=== PATIENT | female | born 1960 | race Caucasian/White ===

== ENCOUNTER 2016-12-28 18:47 | Emergency (ER) | payer BC, MEDICARE ==
[2016-12-28 19:47] VITALS: RESP 16
[2016-12-28] MEDS ORDERED: SODIUM CHLORIDE 0.9% 500 ML IV STA (19:59)
[2016-12-28] MEDS ORDERED: ACETAMINOPHEN TAB 500 MG TAB PO STA (19:59)
--- NOTE | 2016-12-28 20:04 | ED ---
General Adult HPI - General Chief complaint: ENT Stated complaint: neck pain, sore throat Time Seen by Provider: 12/28/16 19:51 Source: patient, RN notes reviewed Mode of arrival: ambulatory Limitations: no limitations - History of Present Illness Initial comments: Patient is a pleasant 56-year-old female presenting to the emergency department complaining of neck pain. Symptoms present for 3 days. Patient has mild sore throat. Patient did have a fever of 99 this morning. No weakness. Patient has not taken Tylenol since yesterday. Neck discomfort increases with movement. Patient has a known history of osteo arthritis and questions if that is causing her neck discomfort. No headache. No weakness. No visual problems. No slurred speech. Patient was at [employer] who did a strep screen that was reported to her as negative. - Related Data Home Medications Medication Instructions Recorded Confirmed Lisinopril [Prinivil] 20 mg PO DAILY 04/05/15 12/28/16 Aspirin 325 mg PO DAILY 04/22/15 12/28/16 Biotin 5 mg PO DAILY 04/22/15 12/28/16 Calcium Carbonate [Calcium] 1,200 mg PO DAILY 12/28/16 12/28/16 Multivitamins, Thera [Multivitamin 1 tab PO DAILY 12/28/16 12/28/16 (formulary)] Vitamin D3(Unknown) 1 tab PO DAILY 12/28/16 12/28/16 Previous Rx's Medication Instructions Recorded Nitroglycerin Sl Tabs [Nitrostat] 0.4 mg SUBLINGUAL Q5M PRN #25 tab 04/08/15 Ciprofloxacin HCl [Cipro] 500 mg PO Q12HR #20 tablet 12/28/16 Allergies Allergy/AdvReac Type Severity Reaction Status Date / Time No Known Allergies Allergy Verified 12/28/16 19:55 Review of Systems ROS Statement: Those systems with pertinent positive or pertinent negative responses have been documented in the HPI. ROS Other: All systems not noted in ROS Statement are negative. Constitutional: Reports: fever Eyes: Denies: eye pain ENT: Reports: throat pain. 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 Recent stent placement History of Any Multi-Drug Resistant Organisms: None Reported Past Surgical History: Heart Catheterization, Heart Catheterization With Stent Additional Past Surgical History / Comment(s): Laparoscopy - PCOS, 08/09/09 colonoscopy with benign polypectomy.04-27-15 heart cath w/stent to lad. Past Anesthesia/Blood Transfusion Reactions: Motion Sickness Additional Past Anesthesia/Blood Transfusion Reaction / Comment(s): Pt states she has difficulty awakening from general anesthesia- slow to wake. She was in ICU post op because of this. Date of Last Stent Placement:: 04/27/15 Past Psychological History: No Psychological Hx Reported Smoking Status: Former smoker Past Alcohol Use History: None Reported Past Drug Use History: None Reported - Past Family History Father Family Medical History: Myocardial Infarction (AL) Additional Family Medical History / Comment(s): Father in his early 30's of a AL Sister(s) Family Medical History: Myocardial Infarction (AL) Additional Family Medical History / Comment(s): Sister at age 32yrs of a AL Mother Additional Family Medical History / Comment(s): Mother is alive and is 80yrs old -she is healthy. General Exam Limitations: no limitations General appearance: alert, in no apparent distress Head exam: Present: atraumatic Eye exam: Present: normal appearance, PERRL ENT exam: Present: other (Mild pharyngeal cobblestoning) Neck exam: Present: tenderness (Tenderness left upper lateral posterior neck, moderate. Minimal right lateral upper posterior neck. No C-spine tenderness.) , other (Patient states only mild discomfort with passive range of motion.) Respiratory exam: Present: normal lung sounds bilaterally Cardiovascular Exam: Present: regular rate, normal rhythm GI/Abdominal exam: Present: soft. Absent: tenderness Extremities exam: Present: normal inspection Neurological exam: Present: alert, CN II-XII intact. Absent: motor sensory deficit Expanded Cranial nerves: EOM's Intact: Normal Sensory exam: Upper Extremity Light Touch: Normal, Lower Extremity Light Touch: Normal Motor strength exam: RUE: 5, LUE: 5, RLE: 5, LLE: 5 Psychiatric exam: Present: normal affect, normal mood Skin exam: Present: normal color Course Vital Signs 12/28/16 12/28/16 18:58 19:46 Temperature 98.1 F Pulse Rate 108 H 104 H Respiratory 20 16 Rate Blood Pressure 193/102 188/88 O2 Sat by Pulse 98 96 Oximetry Medical Decision Making - Medical Decision Making Patient reexamined and is somewhat improved. Patient updated on results. Patient is felt to have low suspicion for meningitis however is informed this cannot be ruled out without lumbar puncture. Patient does not want a lumbar puncture done. Patient does not feel she has meningitis and would like to be discharged. Patient will be covered with antibiotics for possible urinary tract infection. Culture will be obtained. Patient is agreeable to follow-up with her doctor on Saturday. Patient is made aware of elevation of blood sugar and mild elevation of liver enzymes. - Lab Data Result diagrams: 12/28/16 20:19 12/28/16 20:19 Lab Results 12/28/16 12/28/16 12/28/16 Range/Units 20:19 20:19 20:19 WBC 10.2 (3.8-10.6) k/uL RBC 4.86 (3.80-5.40) m/uL Hgb 14.5 (11.4-16.0) gm/dL Hct 42.9 (34.0-46.0) % MCV 88.3 (80.0-100.0) fL MCH 29.9 (25.0-35.0) pg MCHC 33.8 (31.0-37.0) g/dL RDW 13.3 (11.5-15.5) % Plt Count 296 (150-450) k/uL Neutrophils % 64 % Lymphocytes % 20 % Monocytes % 8 % Eosinophils % 5 % Basophils % 1 % Neutrophils # 6.6 (1.3-7.7) k/uL Lymphocytes # 2.0 (1.0-4.8) k/uL Monocytes # 0.8 (0-1.0) k/uL Eosinophils # 0.5 (0-0.7) k/uL Basophils # 0.1 (0-0.2) k/uL Sodium 140 (137-145) mmol/L Potassium 4.4 (3.5-5.1) mmol/L Chloride 105 (98-107) mmol/L Carbon Dioxide 24 (22-30) mmol/L Anion Gap 11 mmol/L BUN 13 (7-17) mg/dL Creatinine 0.70 (0.52-1.04) mg/dL Est GFR (MDRD) Af Amer >60 (>60 ml/min/1.73 sqM) Est GFR (MDRD) Non-Af >60 (>60 ml/min/1.73 sqM) Glucose 141 H (74-99) mg/dL Plasma Lactic Acid Rufino 1.2 (0.7-2.0) mmol/L Calcium 9.5 (8.4-10.2) mg/dL Total Bilirubin 0.7 (0.2-1.3) mg/dL AST 37 H (14-36) U/L ALT 64 H (9-52) U/L Alkaline Phosphatase 70 (38-126) U/L Total Protein 7.8 (6.3-8.2) g/dL Albumin 4.1 (3.5-5.0) g/dL Urine Color Urine Appearance (Clear) Urine pH (5.0-8.0) Ur Specific [place] (1.001-1.035) Urine Protein (Negative) Urine Glucose (UA) (Negative) Urine Ketones (Negative) Urine Blood (Negative) Urine Nitrite (Negative) Urine Bilirubin (Negative) Urine Urobilinogen (<2.0) mg/dL Ur Leukocyte Esterase (Negative) Urine RBC (0-5) /hpf Urine WBC (0-5) /hpf Ur Squamous Epith Cells (0-4) /hpf Urine Bacteria (None) /hpf 12/28/16 Range/Units 20:34 WBC (3.8-10.6) k/uL RBC (3.80-5.40) m/uL Hgb (11.4-16.0) gm/dL Hct (34.0-46.0) % MCV (80.0-100.0) fL MCH (25.0-35.0) pg MCHC (31.0-37.0) g/dL RDW (11.5-15.5) % Plt Count (150-450) k/uL Neutrophils % % Lymphocytes % % Monocytes % % Eosinophils % % Basophils % % Neutrophils # (1.3-7.7) k/uL Lymphocytes # (1.0-4.8) k/uL Monocytes # (0-1.0) k/uL Eosinophils # (0-0.7) k/uL Basophils # (0-0.2) k/uL Sodium (137-145) mmol/L Potassium (3.5-5.1) mmol/L Chloride (98-107) mmol/L Carbon Dioxide (22-30) mmol/L Anion Gap mmol/L BUN (7-17) mg/dL Creatinine (0.52-1.04) mg/dL Est GFR (MDRD) Af Amer (>60 ml/min/1.73 sqM) Est GFR (MDRD) Non-Af (>60 ml/min/1.73 sqM) Glucose (74-99) mg/dL Plasma Lactic Acid Rufino (0.7-2.0) mmol/L Calcium (8.4-10.2) mg/dL Total Bilirubin (0.2-1.3) mg/dL AST (14-36) U/L ALT (9-52) U/L Alkaline Phosphatase (38-126) U/L Total Protein (6.3-8.2) g/dL Albumin (3.5-5.0) g/dL Urine Color Light Yellow Urine Appearance Clear (Clear) Urine pH 5.5 (5.0-8.0) Ur Specific [place] 1.010 (1.001-1.035) Urine Protein Negative (Negative) Urine Glucose (UA) Negative (Negative) Urine Ketones Negative (Negative) Urine Blood Negative (Negative) Urine Nitrite Negative (Negative) Urine Bilirubin Negative (Negative) Urine Urobilinogen <2.0 (<2.0) mg/dL Ur Leukocyte Esterase Moderate H (Negative) Urine RBC 1 (0-5) /hpf Urine WBC 7 H (0-5) /hpf Ur Squamous Epith Cells <1 (0-4) /hpf Urine Bacteria Rare H (None) /hpf - Radiology Data Radiology results: report reviewed (Computed tomography scan the brain shows no acute process. Computed tomography scan of the cervical spine does show some mild degenerative changes of the lower cervical spine. There is some disc herniation C5 6 and C6 7.), image reviewed (Chest x-ray shows no acute process.) Disposition Clinical Impression: Neck pain Disposition: HOME SELF-CARE Condition: Stable Instructions: Neck Pain (ED), Fever in Adults (ED) Additional Instructions: Please follow-up with your doctor on Saturday. Return for increased fevers, increased neck pain, confusion, weakness, increased illness, worsening symptoms or other concerns. Continue [id number] Tylenol or Motrin as needed. Prescriptions: Ciprofloxacin HCl [Cipro] 500 mg PO Q12HR #20 tablet Referrals: Delmy Vogt MD [Primary Care Provider] - 1-2 days Time of Disposition: 21:27
[2016-12-28 20:36] LABS: Basophils # (A) 0.1 k/uL (0-0.2); Basophils % (A) 1 %; CH 29.5; CHCM 33.6; Eosinophils # (A) 0.5 k/uL (0-0.7); Eosinophils % (A) 5 %; HCT 42.9 % (34.0-46.0); HDW 2.33; HGB 14.5 gm/dL (11.4-16.0); Luc # (Auto) 0.22; Luc % (Auto) 2; Lymphocytes % (A) 20 %; MCH 29.9 pg (25.0-35.0); MCHC 33.8 g/dL (31.0-37.0); MCV 88.3 fL (80.0-100.0); Mean Platelet Volume 7.6; Monocytes # (A) 0.8 k/uL (0-1.0); Monocytes % (A) 8 %; Neutrophils # (A) 6.6 k/uL (1.3-7.7); Neutrophils % (A) 64 %; RBC 4.86 m/uL (3.80-5.40); RDW 13.3 % (11.5-15.5); WBC 10.2 k/uL (3.8-10.6); WBC (Perox) 9.42
[2016-12-28 20:46] LABS: Appearance,Urine Clear (Clear); Bacteria,Urine Rare /hpf; Bilirubin,Urine Negative (Negative); Glucose,Urine (UA) Negative (Negative); Ketones,Urine Negative (Negative); Leukocyte Esterase,Urine Moderate (Negative); Nitrite,Urine Negative (Negative); PH, Urine 5.5 (5.0-8.0); Particle Count 1325; Protein,Urine Negative (Negative); RBC,Urine 1 /hpf (0-5); Squamous Epithelial Cell,Urine <1 /hpf (0-4); UA Billing (MACRO vs. MICRO) MICRO; Urobilinogen,Urine <2.0 mg/dL (<2.0); WBC,Urine 7 /hpf (0-5)
[2016-12-28 20:47] LABS: ALT 64 U/L (9-52); AST 37 U/L (14-36); Alkaline Phosphatase 70 U/L (38-126); Anion Gap 11 mmol/L; Blood Urea Nitrogen 13 mg/dL (7-17); Calcium 9.5 mg/dL (8.4-10.2); Carbon Dioxide 24 mmol/L (22-30); Chloride 105 mmol/L (98-107); Glucose 141 mg/dL (74-99); Non-African American GFR(MDRD) >60 (>60 ml/min/1.73 sqM); Potassium 4.4 mmol/L (3.5-5.1); Sodium 140 mmol/L (137-145); Total Bilirubin 0.7 mg/dL (0.2-1.3); Total Protein 7.8 g/dL (6.3-8.2)
--- NOTE | 2016-12-28 20:50 | XR ---
EXAMINATION TYPE: XR chest 2V DATE OF EXAM: 12/28/2016 COMPARISON: May 02, 2015 HISTORY: Neck pain and fever TECHNIQUE: Frontal and lateral views of the chest are obtained. FINDINGS: Heart and mediastinum are normal. Lungs are clear. There is no pleural effusion. Bony thor ax is intact. IMPRESSION: Normal chest. No change.
--- NOTE | 2016-12-28 21:07 | CT ---
EXAMINATION TYPE: CT brain michelle gentile DATE OF EXAM: 12/28/2016 COMPARISON: NONE HISTORY: Sore throat and neck pain x 3 days with fever today. CT DLP: 1770.20 mGycm Automated exposure control for dose reduction was used. TECHNIQUE: CT scan of the head and cervical spine are performed without contrast. FINDINGS: Ventricles and sulci appear normal for age. There is no mass effect nor midline shift. Th ere is no sign of intracranial hemorrhage. Bony calvarium is intact. Cervical vertebra have normal alignment. There is posterior spurring of the endplates at C5-6 C6-7 wi th mild disc space narrowing. Facet joints are intact. Skull base is intact. There is no evidence of a fracture. IMPRESSION: Negative CT scan of the brain. Spondylosis in the lower cervical spine. There is bony spinal stenosis due to posterior central and r ight sided spurring and disc herniation at C5-6 and C6-7. No fracture. There is right-sided C5-6 C6-7 neural foraminal stenosis due to spurring.
[2016-12-28 21:25] VITALS: BP 160/84; PULSE 98; TEMP 98.8
== END 2016-12-28 21:35 | disposition home or self-care (01) ==
LOC: EC 18:47
DX: M54.2 Cervicalgia (principal); R74.8 Abnormal levels of other serum enzymes; J02.9 Acute pharyngitis, unspecified; R50.9 Fever, unspecified; I25.10 Atherosclerotic heart disease of native coronary artery without angina pectoris; M19.90 Unspecified osteoarthritis, unspecified site; I10 Essential (primary) hypertension; Z87.891 Personal history of nicotine dependence; Z79.82 Long term (current) use of aspirin; Z79.899 Other long term (current) drug therapy; Z95.5 Presence of coronary angioplasty implant and graft
CPT/HCPCS: 36415; 70450; 71020; 72125; 80053; 81001; 83605; 85025; 87040; 87086; 96360; 99284

== ENCOUNTER 2018-05-26 22:36 | Emergency (ER) | payer MEDICARE ==
[2018-05-26 22:56] VITALS: RESP 18
[2018-05-27] MEDS ORDERED: INDOMETHACIN 25 MG CAP PO STA (01:32)
--- NOTE | 2018-05-27 01:38 | XR ---
EXAMINATION TYPE: XR foot complete LT DATE OF EXAM: 05/27/2018 COMPARISON: NONE HISTORY: Foot pain and swelling TECHNIQUE: 3 views FINDINGS: I see no fracture nor dislocation. There are plantar and Achilles calcaneal spurs. There ar e no erosions. There is some soft tissue swelling in the forefoot. There is mild osteoarthritis at th e first MP joint. IMPRESSION: Mild soft tissue swelling. Degenerative changes. No fracture. No specific evidence for in flammatory arthritis.
[2018-05-27 02:18] LABS: Basophils # (A) 0.1 k/uL (0-0.2); Basophils % (A) 1 %; Eosinophils # (A) 0.4 k/uL (0-0.7); Eosinophils % (A) 4 %; HCT 41.9 % (34.0-46.0); HGB 13.8 gm/dL (11.4-16.0); Lymphocytes # (A) 1.8 k/uL (1.0-4.8); Lymphocytes % (A) 22 %; MCH 28.9 pg (25.0-35.0); MCV 87.6 fL (80.0-100.0); Mean Platelet Volume 7.2; Monocytes # (A) 0.5 k/uL (0-1.0); Monocytes % (A) 7 %; Neutrophils # (A) 5.2 k/uL (1.3-7.7); Neutrophils % (A) 64 %; Platelet Count 267 k/uL (150-450); RBC 4.78 m/uL (3.80-5.40); RDW 13.7 % (11.5-15.5); WBC 8.1 k/uL (3.8-10.6)
[2018-05-27 02:33] LABS: ALT 55 U/L (9-52); AST 39 U/L (14-36); Albumin 3.9 g/dL (3.5-5.0); Alkaline Phosphatase 56 U/L (38-126); Anion Gap 9 mmol/L; Blood Urea Nitrogen 18 mg/dL (7-17); Calcium 9.6 mg/dL (8.4-10.2); Carbon Dioxide 21 mmol/L (22-30); Chloride 108 mmol/L (98-107); Glucose 128 mg/dL (74-99); Potassium 4.5 mmol/L (3.5-5.1); Sodium 138 mmol/L (137-145); Total Bilirubin 0.5 mg/dL (0.2-1.3); Total Protein 7.6 g/dL (6.3-8.2); Uric Acid 7.6 mg/dL (3.7-7.4)
[2018-05-27] MEDS ORDERED: MORPHINE SULFATE 4 MG/ML SYRINGE IM STA (02:55)
[2018-05-27] MEDS ORDERED: COLCHICINE 0.6 MG EACH PO STA ×2 (02:56→03:31)
--- NOTE | 2018-05-27 03:32 | ED ---
Lower Extremity Injury HPI - General Chief Complaint: Extremity Injury, Lower Stated Complaint: foot swelling Time Seen by Provider: 05/27/18 01:21 Source: patient Mode of arrival: ambulatory Limitations: no limitations - History of Present Illness Initial Comments: 57-year-old female patient presents to emergency department today for evaluation of left foot pain and swelling. Patient states that over the last couple days she was out raking leaves and wearing new boots. States that tonight she laid down and went to sleep but was woke short time later due to pain in the left foot. Patient states she is unable to get comfortable so she got up and she noticed that there is redness and swelling over the left great toe joint. Patient denies any known injury to the foot. She denies fever or chills with this. Denies any swelling or pain to the calf region. She denies numbness, tingling, weakness, or rash. - Related Data Home Medications Medication Instructions Recorded Confirmed Lisinopril [Prinivil] 20 mg PO DAILY 04/05/15 12/28/16 Aspirin 325 mg PO DAILY 04/22/15 12/28/16 Biotin 5 mg PO DAILY 04/22/15 12/28/16 Calcium Carbonate [Calcium] 1,200 mg PO DAILY 12/28/16 12/28/16 Multivitamins, Thera [Multivitamin 1 tab PO DAILY 12/28/16 12/28/16 (formulary)] Vitamin D3(Unknown) 1 tab PO DAILY 12/28/16 12/28/16 Previous Rx's Medication Instructions Recorded Nitroglycerin Sl Tabs [Nitrostat] 0.4 mg SUBLINGUAL Q5M PRN #25 tab 04/08/15 Ciprofloxacin HCl [Cipro] 500 mg PO Q12HR #20 tablet 12/28/16 Acetaminophen-Codeine 300-30mg 1 tab PO Q6H PRN #12 tablet 05/27/18 [Tylenol #3] Allergies Allergy/AdvReac Type Severity Reaction Status Date / Time No Known Allergies Allergy Verified 05/26/18 22:55 Review of Systems ROS Statement: Those systems with pertinent positive or pertinent negative responses have been documented in the HPI. ROS Other: All systems not noted in ROS Statement are negative. 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 Recent stent placement History of Any Multi-Drug Resistant Organisms: None Reported Past Surgical History: Heart Catheterization, Heart Catheterization With Stent Additional Past Surgical History / Comment(s): Laparoscopy - PCOS, 08/09/09 colonoscopy with benign polypectomy.04-27-15 heart cath w/stent to lad. Past Anesthesia/Blood Transfusion Reactions: Motion Sickness Additional Past Anesthesia/Blood Transfusion Reaction / Comment(s): Pt states she has difficulty awakening from general anesthesia- slow to wake. She was in ICU post op because of this. Date of Last Stent Placement:: 04/27/15 Past Psychological History: No Psychological Hx Reported Smoking Status: Former smoker Past Alcohol Use History: None Reported Past Drug Use History: None Reported - Past Family History Father Family Medical History: Myocardial Infarction (MD) Additional Family Medical History / Comment(s): Father in his early 30's of a MD Sister(s) Family Medical History: Myocardial Infarction (MD) Additional Family Medical History / Comment(s): Sister at age 32yrs of a MD Mother Additional Family Medical History / Comment(s): Mother is alive and is 80yrs old -she is healthy. General Exam Limitations: no limitations General appearance: alert, in no apparent distress, other (This is a well- developed, well-nourished adult female patient in no acute distress. Vital signs upon presentation are temperature 98.6F, pulse 97, respirations 18, blood pressure 172/81, pulse ox 95% on room air.) Respiratory exam: Present: normal lung sounds bilaterally. Absent: respiratory distress, wheezes, rales, rhonchi, stridor Cardiovascular Exam: Present: regular rate, normal rhythm, normal heart sounds. Absent: systolic murmur, diastolic murmur, rubs, gallop, clicks Extremities exam: Present: full ROM, tenderness (Tenderness over the left first MTP joint.), normal capillary refill, other (There is erythema and swelling noted over the left first MTP joint. Tenderness surrounds the joint as well. Skin is otherwise pink, warm, dry. Cap refills less than 3 seconds. Pedal pulses 2+ and equal bilaterally.). Absent: normal inspection, pedal edema, joint swelling, calf tenderness Neurological exam: Present: alert, oriented X3, CN II-XII intact Psychiatric exam: Present: normal affect, normal mood Skin exam: Present: warm, dry, intact, normal color. Absent: rash Course Vital Signs 05/26/18 05/27/18 05/27/18 22:52 00:56 03:44 Temperature 98.6 F 98.6 F 97 F L Pulse Rate 97 97 77 Respiratory 18 18 18 Rate Blood Pressure 172/81 166/76 155/75 O2 Sat by Pulse 95 96 97 Oximetry Medical Decision Making - Medical Decision Making 57-year-old female patient presented to the emergency department today for evaluation of pain and swelling to the left foot. Physical examination did reveal erythema, tenderness, and swelling over the left first MTP joint. Patient is afebrile, vital signs stable. Labs reviewed and did reveal an ESR 22 , uric acid of 7.6. Patient symptoms and physical exam findings are consistent with gout. She was treated here in the emergency Department with colchicine. She'll be discharged home with prescription for Tylenol 3. She is instructed to follow-up with her primary care physician for recheck in 1-2 days, she is urged to discuss starting a prophylactic medication for gout. Return parameters were discussed in detail. She verbalizes understanding and agrees with this plan. - Lab Data Result diagrams: 05/27/18 02:00 05/27/18 02:00 Lab Results 05/27/18 05/27/18 Range/Units 02:00 02:00 WBC 8.1 (3.8-10.6) k/uL RBC 4.78 (3.80-5.40) m/uL Hgb 13.8 (11.4-16.0) gm/dL Hct 41.9 (34.0-46.0) % MCV 87.6 (80.0-100.0) fL MCH 28.9 (25.0-35.0) pg MCHC 33.0 (31.0-37.0) g/dL RDW 13.7 (11.5-15.5) % Plt Count 267 (150-450) k/uL Neutrophils % 64 % Lymphocytes % 22 % Monocytes % 7 % Eosinophils % 4 % Basophils % 1 % Neutrophils # 5.2 (1.3-7.7) k/uL Lymphocytes # 1.8 (1.0-4.8) k/uL Monocytes # 0.5 (0-1.0) k/uL Eosinophils # 0.4 (0-0.7) k/uL Basophils # 0.1 (0-0.2) k/uL ESR 22 H (0-20) mm/hr Sodium 138 (137-145) mmol/L Potassium 4.5 (3.5-5.1) mmol/L Chloride 108 H (98-107) mmol/L Carbon Dioxide 21 L (22-30) mmol/L Anion Gap 9 mmol/L BUN 18 H (7-17) mg/dL Creatinine 0.64 (0.52-1.04) mg/dL Est GFR (CKD-EPI)AfAm >90 (>60 ml/min/1.73 sqM) Est GFR (CKD-EPI)NonAf >90 (>60 ml/min/1.73 sqM) Glucose 128 H (74-99) mg/dL Uric Acid 7.6 H (3.7-7.4) mg/dL Calcium 9.6 (8.4-10.2) mg/dL Total Bilirubin 0.5 (0.2-1.3) mg/dL AST 39 H (14-36) U/L ALT 55 H (9-52) U/L Alkaline Phosphatase 56 (38-126) U/L Total Protein 7.6 (6.3-8.2) g/dL Albumin 3.9 (3.5-5.0) g/dL - Radiology Data Radiology results: report reviewed, image reviewed Three-view x-ray of the left foot are obtained. Report was reviewed in its entirety. Impression by Dr. Soares shows mild soft tissue swelling. Degenerative changes. No fracture. No specific evidence for inflammatory arthritis. Disposition Clinical Impression: Gout Disposition: HOME SELF-CARE Condition: Good Instructions: Low Purine Diet (ED), Gout (ED) Additional Instructions: Take medication as directed. Follow-up with your primary care physician for recheck in 1-2 days. Return immediately for any new, worsening, or concerning symptoms. Prescriptions: Acetaminophen-Codeine 300-30mg [Tylenol #3] 1 tab PO Q6H PRN #12 tablet PRN Reason: Pain Is patient prescribed a controlled substance at d/c from ED?: No Referrals: Delmy Vogt MD [Primary Care Provider] - 1-2 days Time of Disposition: 03:32
[2018-05-27 03:35] LABS: Erythrocyte Sedimentation Rate 22 mm/hr (0-20)
[2018-05-27 03:45] VITALS: BP 155/75; PULSE 77; TEMP 97
== END 2018-05-27 03:45 | disposition home or self-care (01) ==
LOC: EC 22:36
DX: M10.9 Gout, unspecified (principal); M16.0 Bilateral primary osteoarthritis of hip; I10 Essential (primary) hypertension; Z95.818 Presence of other cardiac implants and grafts; Z95.5 Presence of coronary angioplasty implant and graft; Z87.891 Personal history of nicotine dependence; Z79.82 Long term (current) use of aspirin; Z79.899 Other long term (current) drug therapy
CPT/HCPCS: 36415; 80053; 85652; 84550; 85025; 73630; 99284; 96372; J2270

== ENCOUNTER → 2020-02-15 | Outpatient (CLI) | payer MEDICARE ==
--- NOTE | 2020-02-15 22:25 | US ---
EXAMINATION TYPE: US pelvis complete transvag DATE OF EXAM: 02/15/2020 COMPARISON: NONE CLINICAL HISTORY: 59-year-old female N95.0 Post menopausal bleeding Patient gives clinical history of periods that never stopped. Spotting and bleeding that she has no r ecollection of ever ceasing. Patient doesn't take any hormones. Patient morbidly obese. Unable to well fill bladder or well empty bladder. TECHNIQUE: Transabdominal sonographic images of the pelvis were acquired. Transvaginal sonographic images were medically necessary to better assess the following anatomy: uterus and ovaries Date of LMP: 02/01/20 FINDINGS: EXAM MEASUREMENTS: Uterus: 9.4 x 5.0 x 5.2 cm Endometrial Stripe: 0.9 cm Right Ovary: Obscured by overlying bowel gas, obesity Left Ovary: Obscured by overlying bowel gas, obesity 1. Uterus: Anteverted, heterogeneous, 2. Endometrium: limited visualization, measures 9 mm 3. Right Ovary: Obscured by overlying bowel gas, obesity 4. Left Ovary: Obscured by overlying bowel gas, obesity 5. Bilateral Adnexa: wnl 6. Posterior cul-de-sac: wnl IMPRESSION: The endometrial stripe shows mild abnormal thickening for a postmenopausal female with bleeding (9 mm ). Further evaluation as indicated. Differential considerations include endometrial polyps, hyperplas ia, and endometrial carcinoma. Neither ovary could be visualized.
== END | disposition home or self-care (01) ==
LOC: RADUSWWP 14:15
PROVIDERS: ATTEND Obstetrics & Gynecology
DX: R93.89 Abnormal findings on diagnostic imaging of other specified body structures (principal); N95.0 Postmenopausal bleeding
CPT/HCPCS: 76830; 76856

== ENCOUNTER → 2020-03-25 | Outpatient (CLI) | payer MEDICARE ==
[2020-03-25 09:06] LABS: Basophils # (A) 0.1 k/uL (0-0.2); Basophils % (A) 2 %; Eosinophils # (A) 0.2 k/uL (0-0.7); Eosinophils % (A) 5 %; HCT 43.9 % (34.0-46.0); HGB 13.7 gm/dL (11.4-16.0); Lymphocytes # (A) 1.4 k/uL (1.0-4.8); Lymphocytes % (A) 31 %; MCH 27.8 pg (25.0-35.0); MCHC 31.3 g/dL (31.0-37.0); MCV 88.8 fL (80.0-100.0); Mean Platelet Volume 7.7; Monocytes # (A) 0.5 k/uL (0-1.0); Monocytes % (A) 11 %; Neutrophils # (A) 2.2 k/uL (1.3-7.7); Neutrophils % (A) 48 %; Platelet Count 258 k/uL (150-450); RBC 4.94 m/uL (3.80-5.40); RDW 13.5 % (11.5-15.5); WBC 4.6 k/uL (3.8-10.6)
== END | disposition home or self-care (01) ==
LOC: LABPAT 08:06
PROVIDERS: ATTEND Obstetrics & Gynecology
DX: Z01.818 Encounter for other preprocedural examination (principal)
CPT/HCPCS: 36415; 85025; 93005

== ENCOUNTER → 2020-09-21 | Outpatient (CLI) | payer MEDICARE ==
[~2020-09-21] MED LIST: REGADENOSON 0.4 MG/5 ML SYRINGE IV PRN
--- NOTE | 2020-09-21 15:26 | NM ---
EXAMINATION TYPE: NM stress lexiscan cardiolite DATE OF EXAM: 09/21/2020 COMPARISON: NONE HISTORY: Atherosclerotic heart disease TECHNIQUE: After the intravenous administration of 10.3 mCi Tc 99m Sestamibi - Cardiolite resting SP ECT images acquired 65 minutes post injection. At peak stress 25.2 mCi Tc 99m Sestamibi - Stress images obtained 30 minutes post injection The patient was stressed with 0.4mg Lexiscan. FINDINGS: No fixed defects are evident. There is a defect along the stress images which has improved visualization of the resting images lynne g the distal anterior septal wall. Reversible perfusion defect may be present at this level. There is thinning at the cardiac apex. Wall motion is normal Ejection fraction is calculated to be 67 %. IMPRESSION: 1. Stress-induced ischemic change anterior septal wall within the mid to distal portions. 2. Chronic apical thinning
== END | disposition home or self-care (01) ==
LOC: RADNMMAIN 08:05
PROVIDERS: ATTEND Internal Medicine
DX: I99.8 Other disorder of circulatory system (principal); I25.118 Atherosclerotic heart disease of native coronary artery with other forms of angina pectoris
CPT/HCPCS: 93017; 78452; A9500; J2785

== ENCOUNTER 2020-10-17 06:57 | Day surgery (SDC) | payer MEDICARE ==
[2020-10-13 08:53] VITALS: BMI 38.9
[~2020-10-17 06:57] MED LIST changes: +ALPRAZolam 0.25 MG TAB PO PRN; +ALPRAZolam 0.5 MG TAB PO PRN; +HEPARIN SODIUM,PORCINE 10,000 UNIT in SODIUM CHLORIDE 0.9% 1,000 ML IRRIGATION PRN; +HEPARIN SODIUM,PORCINE 2,500 UNIT in SODIUM CHLORIDE 0.9% 250 ML IRRIGATION PRN; +NITROGLYCERIN SL TABS 0.4 MG TAB SUBLINGUAL PRN; -REGADENOSON 0.4 MG/5 ML SYRINGE IV PRN; +SODIUM CHLORIDE 0.9% 1,000 ML in EMPTY BAG 1 BAG IV ONE
[2020-10-17] MEDS ORDERED: ATORVASTATIN 80 MG TAB PO ONE (07:00)
[2020-10-17] MEDS ORDERED: ASPIRIN 325 MG TAB PO ONE (07:00)
[2020-10-17] MEDS ORDERED: SODIUM CHLORIDE 0.9% 1,000 ML IV ONE (07:40)
[2020-10-17 07:52] VITALS: RESP 16; TEMP 97.5
[2020-10-17] MEDS ORDERED: MIDAZOLAM 2 MG/2 ML VIAL IV ONE ×2 (08:50→09:07)
[2020-10-17] MEDS ORDERED: LIDOCAINE 1% INJ 10MG/ML (20 ML MDV) SQ ONE (08:55)
[2020-10-17] MEDS ORDERED: VERAPAMIL SYRINGE (5 MG/10 ML) INTRAARTER ONE (08:57)
[2020-10-17] MEDS ORDERED: IOPAMIDOL-370 125ML BTL INJ ONE (09:11)
[2020-10-17] MEDS ORDERED: RX INFO: IV CONTRAST WAS GIVEN 1 EACH MISC MISCELLANE PRN (09:19)
[2020-10-17] MEDS ORDERED: SODIUM CHLORIDE 0.9% 1,000 ML IV SCH (09:30)
--- NOTE | 2020-10-17 10:13 | CC ---
CARDIAC CATHETERIZATION REPORT DATE OF SERVICE: October 17, 2020. PERFORMING PHYSICIAN: Jake Koch MD. PROCEDURE PERFORMED: 1. Selective right and left coronary angiogram. 2. Left heart catheterization. INDICATION: This is a very pleasant 60-year-old female patient with coronary artery disease and prior stenting of the LAD as well as hypertension and dyslipidemia who was experiencing symptoms of chest discomfort and she underwent myocardial perfusion imaging stress test which revealed an apical ischemia and because of that a heart catheterization was advised. APPROACH: Right radial artery. COMPLICATION: None. LEVEL OF SEDATION: Moderate with sedation length of 20 minutes. PROCEDURE DESCRIPTION: After obtaining an informed consent, the patient was brought to the cardiac kiln labourer. The right radial artery was cannulated using micropuncture technique, the micropuncture wire passed easily then I placed a 6-Barbadian sheath at the right radial artery. After that I gave the patient 2 mg of verapamil IA and 10,000 units of heparin IV. Selective right and left coronary angiogram performed using JR4 and JL4 catheters. Left heart catheterization was performed using the JL4 catheter which crossed the aortic valve then I did pullback across the valve. The procedure was completed without any complication. SELECTIVE CORONARY ANGIOGRAM: 1. The RCA is a large caliber vessel and it is a dominant vessel. The proximal RCA appeared to have mild disease only. The mid RCA has intermediate lesion in the range of 50% to 60%. and the RCA after that bifurcates into PDA and PLV branches, both appeared to be angiographically normal. 2. The left main has mild disease only, bifurcates into LCX and LAD. 3. The LCX is a large caliber vessel. The LCX proximally appeared to have a mild disease only in the range of 60% only. It gives rise into the first obtuse marginal branch which is a large caliber vessel with mild disease only. The mid left circumflex is angiographically normal and gives rise into second OM branch which appeared to be angiographically normal and the circumflex continues after that as a small-caliber vessel in the AV groove. 4. The LAD: The LAD proximally appeared to have mild disease only. The LAD after that in the midportion appeared to be subtotally occluded with competitive flow comes from the right coronary artery. HEMODYNAMICS: The LVEDP was about only 8-10 mmHg without significant gradient across aortic valve. CONCLUSION: 1. Intermediate to severe disease involving the mid RCA appeared to be in the range of 50% to 60%. 2. Mild disease involving the left main coronary artery. 3. Intermediate disease involving the left circumflex coronary system. 4. Subtotally occluded mid LAD on long segment extends all the way to the distal with competitive flow coming via collateral from the right coronary artery. 5. Normal LVEDP. POSTPROCEDURE MANAGEMENT: Giving the above anatomy, as well as the small area of ischemia by the stress test and the absence of any high risk features on noninvasive testing, I did advise maximized medical treatment at this point. If the patient continues to be symptomatic in spite of that, we might consider doing PCI of the LAD. ANIA / MELODY: [id number] /
[2020-10-17 12:06] VITALS: PULSE 60
[2020-10-17 13:18] VITALS: BP 138/78
== END 2020-10-17 13:58 | disposition home or self-care (01) ==
LOC: CATHCVL 06:57
PROVIDERS: ATTEND Internal Medicine Interventional Cardiology
DX: I25.110 Atherosclerotic heart disease of native coronary artery with unstable angina pectoris (principal); I10 Essential (primary) hypertension; E78.00 Pure hypercholesterolemia, unspecified; R94.39 Abnormal result of other cardiovascular function study; Z91.14 Patient's other noncompliance with medication regimen; E66.8 Other obesity; Z68.39 Body mass index [BMI] 39.0-39.9, adult; E78.5 Hyperlipidemia, unspecified; Z72.0 Tobacco use; Z95.5 Presence of coronary angioplasty implant and graft; Z79.82 Long term (current) use of aspirin; Z79.899 Other long term (current) drug therapy
CPT/HCPCS: 93458; 87635; C1769; C1894; J2250; J2001; J1644; Q9967

== ENCOUNTER 2021-04-18 05:45 | Day surgery (SDC) | payer MEDICARE ==
[2021-04-17 08:18] VITALS: BMI 41.0
--- NOTE | 2021-04-17 12:31 | P.HPOB ---
History of Present Illness H&P Date: 04/17/21 Chief Complaint: Postmenopausal bleeding This patient is a 60-year-old female who was referred to my office by Dr. butler for abnormal pelvic ultrasound and postmenopausal bleeding. History is such that she saw Dr. Richey last year for similar findings however due to timo ious reasons she did not follow through with a hysteroscopy D&C for further evaluation. Patient's endometrium at that time was 9 mm. Patient continued to have bleeding and Dr. Simpson ordered another ultrasound which now shows hypervascular endometrium with unclear borders. I recommended again to proceed with hysteroscopy and D&C for further evaluation. Review of Systems Genitourinary: Reports as per HPI, Reports abnormal vaginal bleeding Past Medical History Past Medical History: Coronary Artery Disease (CAD), Hyperlipidemia, Hypertension, Osteoarthritis (OA) Additional Past Medical History / Comment(s): generalized arthiritis, OA in bilateral hips-needs L hip replacement, PCOS, back pain at times.pt stated eggs cause n/v but had flu vaccine and was ok, POST MENOPAUSAL BLEEDING History of Any Multi-Drug Resistant Organisms: None Reported Past Surgical History: Heart Catheterization, Heart Catheterization With Stent Additional Past Surgical History / Comment(s): Laparoscopy - PCOS, 08/09/09 colonoscopy with benign polypectomy.04-27-15 heart cath w/stent to lad. Past Anesthesia/Blood Transfusion Reactions: Motion Sickness Additional Past Anesthesia/Blood Transfusion Reaction / Comment(s): Pt states she has difficulty awakening from general anesthesia- slow to wake. She was in ICU post op because of this. Date of Last Stent Placement:: 04/27/15 Smoking Status: Former smoker Past Alcohol Use History: None Reported Past Drug Use History: None Reported - Past Family History Father Family Medical History: Myocardial Infarction ([place]) Additional Family Medical History / Comment(s): Father in his early 30's of a [place] Sister(s) Family Medical History: Myocardial Infarction ([place]) Additional Family Medical History / Comment(s): Sister at age 32yrs of a [place] Mother Additional Family Medical History / Comment(s): Mother is alive and is 80yrs old -she is healthy. Medications and Allergies Home Medications Medication Instructions Recorded Confirmed Type Nitroglycerin Sl Tabs [Nitrostat] 0.4 mg SUBLINGUAL Q5M PRN #25 tab 04/08/15 04/17/21 Rx Aspirin 81 mg PO DAILY 04/22/15 04/17/21 History Biotin 5 mg PO DAILY 04/22/15 04/17/21 History Calcium Carbonate [Calcium] 1,200 mg PO DAILY 12/28/16 04/17/21 History Cholecalciferol [Vitamin D3 (25 1,000 unit PO DAILY 12/28/16 04/17/21 History Mcg = 1000 Iu)] Multivitamins, Thera [Multivitamin 1 tab PO DAILY 12/28/16 04/17/21 History (formulary)] Ascorbic Acid [Vitamin C] 1,000 mg PO DAILY 10/13/20 04/17/21 History Atorvastatin [Lipitor] 40 mg PO DAILY 10/13/20 04/17/21 History Wren-3/Dha/Epa/Fish Oil [Fish Oil 1 each PO DAILY 10/13/20 04/17/21 History 500 mg Softgel] lisinopriL 40 mg PO DAILY 10/13/20 04/17/21 History Metoprolol Succinate (ER) [Toprol 25 mg PO HS 10/17/20 04/17/21 History XL] Chlorthalidone 25 mg PO DAILY 04/17/21 04/17/21 History Glucosamine/Chondr Mendez A Sod [Osteo 2 each PO DAILY 04/17/21 04/17/21 History Bi-Flex Caplet] Allergies Allergy/AdvReac Type Severity Reaction Status Date / Time No Known Allergies Allergy Verified 04/17/21 08:07 Exam Intake and Output 04/16/21 04/17/21 04/17/21 22:59 06:59 14:59 Other: Weight 120.202 kg - OBG Physical Exam Abdomen: bowel sounds normal, no diffuse tenderness, no bruit present, no guarding noted, no hepatomegaly, no splenomegaly, no mass Vulva: both: normal Vagina: normal moisture, no discharge Uterus: normal size, normal contour Results Ultrasound shows abnormal endometrial thickening without clear borders and hypervascularity. Assessment and Plan Assessment: This is a 60-year-old female with long-standing postmenopausal bleeding and abnormal thickening on transvaginal ultrasound. Certainly one has to be concerned for endometrial neoplasm. I recommended to proceed with a hysteroscopy and dilation and curettage. Patient and I and her have discussed the surgery and risks including risks of infection, bleeding, possible uterine perforation. All the patient's questions are answered written consent obtained. (1) Post-menopausal bleeding Status: Chronic Code(s): N95.0 - POSTMENOPAUSAL BLEEDING SNOMED Code(s): 88153120 (2) Endometrial thickening on ultrasound Status: Chronic Code(s): R93.89 - ABNORMAL FINDINGS ON DX IMAGING OF OTH BODY STRUCTURES SNOMED Code(s): 001273393
[~2021-04-18 05:45] MED LIST changes: -ALPRAZolam 0.25 MG TAB PO PRN; -ALPRAZolam 0.5 MG TAB PO PRN; +DEXAMETHASONE SOD PHOSPHATE 4 MG/ML 1 ML VIAL IV ONE; -HEPARIN SODIUM,PORCINE 10,000 UNIT in SODIUM CHLORIDE 0.9% 1,000 ML IRRIGATION PRN; -HEPARIN SODIUM,PORCINE 2,500 UNIT in SODIUM CHLORIDE 0.9% 250 ML IRRIGATION PRN; +LACTATED RINGERS 1,000 ML IV SCH; +LIDOCAINE 1% (10MG/ML) FOR IV START INTRADERMA PRN; -NITROGLYCERIN SL TABS 0.4 MG TAB SUBLINGUAL PRN; +ONDANSETRON 4 MG/2 ML VIAL IVP ONE; +Pre Op ABX Message 1 EACH MISC MISCELLANE ONE; +SCOPOLAMINE 1.5MG/72HR PATCH TRANSDERM ONE; -SODIUM CHLORIDE 0.9% 1,000 ML in EMPTY BAG 1 BAG IV ONE
[2021-04-18] MEDS ORDERED: LACTATED RINGERS 1,000 ML IV ONE (06:16)
[2021-04-18] MEDS ORDERED: fentaNYL (PF) 50 MCG/ML 2 ML AMP ONE (06:50)
[2021-04-18] MEDS ORDERED: PROPOFOL 10 MG/ML 20 ML VIAL IV ONE (06:50)
[2021-04-18] MEDS ORDERED: LIDOCAINE 1% INJ 10MG/ML (20 ML MDV) ONE (06:50)
[2021-04-18] MEDS ORDERED: MIDAZOLAM 2 MG/2 ML VIAL ONE (06:50)
[2021-04-18] MEDS ORDERED: HYDROmorphone 0.5 MG/0.5 ML SYRINGE IVP PRN (07:00)
[2021-04-18 07:29] VITALS: RESP 16; TEMP 97.7
--- NOTE | 2021-04-18 07:30 | P.OP ---
Date of Procedure: 04/18/21 Preoperative Diagnosis: Postmenopausal bleeding with abnormal endometrial thickening Postoperative Diagnosis: Same Procedure(s) Performed: Hysteroscopy and dilation and curettage. Anesthesia: MAC Surgeon: Mg Alexandra Estimated Blood Loss (ml): 50 Urine output (ml): 50 Pathology: other (Uterine curettings) Condition: stable Disposition: PACU Indications for Procedure: Please see dictated H&P for intimate details of this patient's admission. Brief summary this is a 60-year-old female with long-standing bleeding and abnormal endometrial thickening who presents for hysteroscopy D&C for further evaluation. Patient understands this procedure and risks including risks of infection, bleeding, possible uterine perforation. All the patient's questions are answered and a written consent obtained. Operative Findings: This patient had a large amount of tissue and the uterine cavity concerning for neoplasm. Description of Procedure: This patient is taken to the operating room where she is laid in the supine position. She subsequent undergoes general mask anesthesia without incident. With an adequate level of anesthesia was placed in dorsal lithotomy position. She has a vaginal prep and drape. Examination under anesthesia shows a mid position uterus. Weighted speculum was placed in the posterior vagina. The bladder is drained for 50 mL of clear urine. I then grabbed the anterior lip of the cervix with an Allis clamp. Using a hemostat I dilate the ectocervix. Uterus is then sounded to 9.5 cm. Gentle dilation is then done of the endocervix. Hysteroscopy is then performed using saline solution. There is a generous amount of whitish tissue in the uterine lining. This does appear concerning for neoplasm. The hysteroscope was removed. Cervix is dilated more to allow the polyp forceps easily and the uterine cavity and I do remove large pieces of tissue at this time. At this time a 4 quadrant sharp curettage is done again for a large amount of tissue. All this tissue is sent off to pathology. Patient is having some bleeding but it is observed and subsides on its own. There are no complications. All counts are correct 3. Patient is awakened from anesthesia and taken to the recovery room in satisfactory condition.
[2021-04-18 08:54] VITALS: BP 125/52; PULSE 50
== END 2021-04-18 09:32 | disposition home or self-care (01) ==
LOC: OR 05:45
PROVIDERS: ATTEND Obstetrics & Gynecology
DX: N95.0 Postmenopausal bleeding (principal); R93.89 Abnormal findings on diagnostic imaging of other specified body structures; I25.10 Atherosclerotic heart disease of native coronary artery without angina pectoris; E78.5 Hyperlipidemia, unspecified; I10 Essential (primary) hypertension; M19.90 Unspecified osteoarthritis, unspecified site; E28.2 Polycystic ovarian syndrome; Z95.5 Presence of coronary angioplasty implant and graft; Z87.891 Personal history of nicotine dependence; Z82.49 Family history of ischemic heart disease and other diseases of the circulatory system; Z79.82 Long term (current) use of aspirin; Z79.899 Other long term (current) drug therapy
CPT/HCPCS: 88305; 58558; J2250; J1100; J2405; J2001; J3010; J2704; J1170

== ENCOUNTER 2021-06-24 21:45 | Observation (INO) | payer MEDICARE ==
--- NOTE | 2021-06-24 22:58 | XR ---
EXAMINATION TYPE: XR chest 2V DATE OF EXAM: 06/24/2021 COMPARISON: 12/28/2016 HISTORY: Chest pain TECHNIQUE: 2 views FINDINGS: Heart and mediastinum are normal. The lungs are clear of consolidation. There is minimal pl eural reaction left lateral lung base. There are no hilar masses. There are chest leads. Bony thorax is intact. There is no pleural effusion. IMPRESSION: Minimal pleural reaction left lung base slightly increased compared to old exam. Normal h eart.
[2021-06-24 23:00] LABS: Basophils # (A) 0.1 k/uL (0-0.2); Basophils % (A) 1 %; Eosinophils # (A) 0.2 k/uL (0-0.7); Eosinophils % (A) 3 %; HCT 35.9 % (34.0-46.0); HGB 11.7 gm/dL (11.4-16.0); Lymphocytes # (A) 1.5 k/uL (1.0-4.8); Lymphocytes % (A) 20 %; MCH 29.4 pg (25.0-35.0); MCHC 32.5 g/dL (31.0-37.0); MCV 90.5 fL (80.0-100.0); Mean Platelet Volume 8.1; Monocytes # (A) 0.7 k/uL (0-1.0); Monocytes % (A) 9 %; Neutrophils # (A) 4.8 k/uL (1.3-7.7); Neutrophils % (A) 65 %; Platelet Count 257 k/uL (150-450); RBC 3.96 m/uL (3.80-5.40); RDW 12.7 % (11.5-15.5); WBC 7.3 k/uL (3.8-10.6)
[2021-06-24] MEDS ORDERED: HYDROmorphone 0.5 MG/0.5 ML SYRINGE IVP STA (23:03)
[2021-06-24] MEDS ORDERED: ONDANSETRON 4 MG/2 ML VIAL IVP STA (23:03)
[2021-06-24] MEDS ORDERED: SODIUM CHLORIDE 0.9% 500 ML 500 ML IV STA (23:03)
--- NOTE | 2021-06-24 23:05 | ED ---
Chest Pain HPI - General Chief Complaint: Chest Pain Stated Complaint: CHEST PAIN Time Seen by Provider: 06/24/21 22:37 Source: patient Mode of arrival: wheelchair Limitations: no limitations - History of Present Illness Initial Comments: 's patient is a 60-year-old woman who presents with complaint of having some sharp/achy right sided chest pain. She states that she had noted that last night and it did keep her up most of the night but she was able to get to sleep in the morning. She states that the pain recurred this evening, so she felt she should be evaluated here. The patient states that the pain may be worse with breathing. History is notable for having recent hysterectomy due to endometrial cancer diagnosis. MD Complaint: chest pain Onset/Timin -: hour(s) Onset: during rest Pain Location: right chest Pain Radiation: back Severity: moderate Quality: aching Consistency: constant Improves With: nothing Worsens With: nothing Treatments Prior to Arrival: none - Related Data Home Medications Medication Instructions Recorded Confirmed Aspirin 81 mg PO DAILY 04/22/15 04/17/21 Biotin 5 mg PO DAILY 04/22/15 04/17/21 Calcium Carbonate [Calcium] 1,200 mg PO DAILY 12/28/16 04/17/21 Cholecalciferol [Vitamin D3 (25 1,000 unit PO DAILY 12/28/16 04/17/21 Mcg = 1000 Iu)] Multivitamins, Thera [Multivitamin 1 tab PO DAILY 12/28/16 04/17/21 (formulary)] Ascorbic Acid [Vitamin C] 1,000 mg PO DAILY 10/13/20 04/17/21 Atorvastatin [Lipitor] 40 mg PO DAILY 10/13/20 04/17/21 [place]inton-3/Dha/Epa/Fish Oil [Fish Oil 1 each PO DAILY 10/13/20 04/17/21 500 mg Softgel] lisinopriL 40 mg PO DAILY 10/13/20 04/17/21 Metoprolol Succinate (ER) [Toprol 25 mg PO HS 10/17/20 04/17/21 XL] Chlorthalidone 25 mg PO DAILY 04/17/21 04/17/21 Glucosamine/Chondr Mendez A Sod [Osteo 2 each PO DAILY 04/17/21 04/17/21 Bi-Flex Caplet] Previous Rx's Medication Instructions Recorded Nitroglycerin Sl Tabs [Nitrostat] 0.4 mg SUBLINGUAL Q5M PRN #25 tab 04/08/15 Ibuprofen [Motrin] 600 mg PO Q6HR PRN #30 tab 04/18/21 Triamcinolone 0.1% Cream [Kenalog 1 applicatio TOPICAL BID #80 gm 04/18/21 0.1% Cream] Allergies Allergy/AdvReac Type Severity Reaction Status Date / Time No Known Allergies Allergy Verified 06/24/21 21:46 Review of Systems ROS Statement: Those systems with pertinent positive or pertinent negative responses have been documented in the HPI. ROS Other: All systems not noted in ROS Statement are negative. Constitutional: Denies: fever, chills Respiratory: Denies: cough, dyspnea Cardiovascular: Reports: as per HPI, chest pain. Denies: palpitations, or thopnea, edema, syncope Gastrointestinal: Reports: nausea. Denies: abdominal pain, vomiting, diarrhea, constipation, melena, hematochezia Genitourinary: Denies: dysuria, frequency, hematuria Musculoskeletal: Denies: back pain Skin: Denies: rash Neurological: Denies: headache, weakness, numbness EKG Findings - EKG Results: EKG: interpreted by ERMD, sinus rhythm (73 bpm), normal axis, normal ST/T - Blocks, Eckerty, Hypertrophy, ST Abn: QRS axis and voltage: low voltage (<0.5 MV total QRS and <1.0 MV in each precordial lead) Past Medical History Past Medical History: Cancer Additional Past Medical History / Comment(s): small internal hemorrhoid, generalized arthiritis, 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 Past Anesthesia/Blood Transfusion Reactions: Motion Sickness Additional Past Anesthesia/Blood Transfusion Reaction / Comment(s): Pt states she has difficulty awakening from general anesthesia- slow to wake. She was in ICU post op because of this. Date of Last Stent Placement:: 04/27/15 Past Psychological History: No Psychological Hx Reported Smoking Status: Former smoker Past Alcohol Use History: None Reported Past Drug Use History: Marijuana - Past Family History Father Family Medical History: Myocardial Infarction ([place]) Additional Family Medical History / Comment(s): Father in his early 30's of a [place] Sister(s) Family Medical History: Myocardial Infarction ([place]) Additional Family Medical History / Comment(s): Sister at age 32yrs of a [place] Mother Additional Family Medical History / Comment(s): Mother is alive and is 80yrs old -she is healthy. General Exam Limitations: no limitations General appearance: alert, in no apparent distress Head exam: Present: atraumatic, normocephalic Eye exam: Present: normal appearance. Absent: scleral icterus, conjunctival injection ENT exam: Present: normal oropharynx Neck exam: Present: normal inspection Respiratory exam: Present: normal lung sounds bilaterally. Absent: respiratory distress, wheezes, rales, rhonchi, stridor, chest wall tenderness, accessory muscle use Cardiovascular Exam: Present: regular rate, normal rhythm, normal heart sounds. Absent: systolic murmur, diastolic murmur, rubs, gallop GI/Abdominal exam: Present: soft. Absent: distended, tenderness, guarding, rebound, rigid, mass Extremities exam: Present: normal inspection, normal capillary refill. Absent: pedal edema, calf tenderness Back exam: Present: normal inspection. Absent: CVA tenderness (R), CVA tenderness (L), vertebral tenderness Neurological exam: Present: alert Skin exam: Present: warm, dry, intact, normal color. Absent: rash Course Vital Signs 06/24/21 21:46 Temperature 97.9 F Pulse Rate 83 Respiratory 20 Rate Blood Pressure 179/72 O2 Sat by Pulse 99 Oximetry Disposition Clinical Impression: Pulmonary embolism Disposition: ADMITTED IP TO THIS HOSP Condition: Fair Referrals: Paris Simpson MD [Primary Care Provider] - 1-2 days
[2021-06-24 23:14] LABS: Albumin 3.9 g/dL (3.5-5.0); Calcium 9.2 mg/dL (8.4-10.2); Magnesium 1.7 mg/dL (1.6-2.3); Potassium 3.9 mmol/L (3.5-5.1); Total Bilirubin 0.3 mg/dL (0.2-1.3); Total Protein 7.4 g/dL (6.3-8.2)
[2021-06-24 23:15] LABS: Partial Thromboplastin Time 22.7 sec (22.0-30.0); Prothrombin Time 10.9 sec (9.0-12.0)
--- NOTE | 2021-06-24 23:54 | CT ---
EXAMINATION TYPE: CT chest angio for PE DATE OF EXAM: 06/24/2021 COMPARISON: 04/05/2015 HISTORY: pe CT DLP: 982.7 mGycm Automated exposure control for dose reduction was used. CONTRAST: Performed with IV Contrast, patient injected with 80 mL of Isovue 370. Images obtained from the thoracic inlet to the diaphragm with IV contrast. There are 3-D post process ed images. There is slight increased interstitial density in the left lower lobe. There is no evidence of a pulm onary mass. There is no pulmonary consolidation. There is no mediastinal adenopathy. There are no hil ar masses. There is filling defect in the right lower lobe pulmonary artery in the posterior basal and lateral b carlos segment branches. The thoracic spine is intact. Heart size is fairly normal. There is no pericardial effusion. IMPRESSION: Bilateral lower lobe pulmonary embolism. No evidence of right heart strain. Exam was discussed with emergency room staff midnight.
[2021-06-25] MEDS ORDERED: HEPARIN SODIUM 1,000 UN/ML (10ML VL) IV PRN (00:01)
[2021-06-25] MEDS ORDERED: HEPARIN SODIUM 1,000 UN/ML (10ML VL) IV ONE (00:01)
[2021-06-25] MEDS ORDERED: MORPHINE SULFATE 4 MG/ML SYRINGE IV PRN (00:08)
[2021-06-25] MEDS ORDERED: ACETAMINOPHEN TAB 325 MG TAB PO PRN (00:08)
[2021-06-25] MEDS ORDERED: HYDROmorphone 0.5 MG/0.5 ML SYRINGE IVP PRN (00:08)
[2021-06-25] MEDS ORDERED: NALOXONE 0.4 MG/ML 1 ML VIAL IV PRN (00:08)
[2021-06-25] MEDS ORDERED: ONDANSETRON 4 MG/2 ML VIAL IVP PRN (00:08)
[2021-06-25] MEDS ORDERED: HYDROmorphone 1 MG/ML 1 ML SYRINGE IVP STA (00:09)
[2021-06-25 00:27] LABS: Basophils % (A) 0 %; Eosinophils # (A) 0.1 k/uL (0-0.7); Eosinophils % (A) 2 %; HCT 34.2 % (34.0-46.0); HGB 11.1 gm/dL (11.4-16.0); Lymphocytes # (A) 1.2 k/uL (1.0-4.8); Lymphocytes % (A) 17 %; MCH 29.8 pg (25.0-35.0); MCHC 32.5 g/dL (31.0-37.0); MCV 91.7 fL (80.0-100.0); Mean Platelet Volume 8.2; Monocytes # (A) 0.6 k/uL (0-1.0); Monocytes % (A) 10 %; Neutrophils # (A) 4.6 k/uL (1.3-7.7); Neutrophils % (A) 69 %; Platelet Count 220 k/uL (150-450); RBC 3.73 m/uL (3.80-5.40); RDW 12.5 % (11.5-15.5); WBC 6.7 k/uL (3.8-10.6)
[2021-06-25 00:43] LABS: INR 1.1 (<1.2); Partial Thromboplastin Time 22.6 sec (22.0-30.0); Prothrombin Time 11.5 sec (9.0-12.0)
[2021-06-25] MEDS: HEPARIN SOD,PORK IN 0.45% NACL 25,000 UNIT in 0.45% NACL 1 250ML.BAG IV SCH ×2 (00:47→15:10)
[2021-06-25] MEDS: SODIUM CHLORIDE 0.9% 1,000 ML IV SCH (01:50)
[2021-06-25 09:24] VITALS: BMI 39.5
--- NOTE | 2021-06-25 09:32 | P.CRDCN ---
History of Present Illness Consult date: 06/25/21 History of present illness: This is a 60-year-old female with history of coronary artery disease, hypertension and dyslipidemia who had stent placement of the LAD many years ago. In September of this year patient had a cardiac catheterization by Dr. Hanley and was found to have near total occlusion of the mid LAD which was a long lesion. Patient had mild ischemia on the stress test. She was a advised maximum medical therapy. Recently patient had hysterectomy. She is admitted to the hospital now with complaints of right-sided chest pain and shortness of breath. Computed tomography scan is consistent with pulmonary emboli. On the computed tomography scan there was no evidence of right ventricular strain. Patient was initiated on heparin drip. She is feeling much better now. She is not having any chest pain. Her vital signs are stable with a blood pressure 120 02/01/1953 this morning. Pulse is about 61. Respirations are 18. Her lab work showed a d-dim er of 1.98. Her hemoglobin today is 11.1. Electrolytes are within normal limits. Patient will continue current medical therapy. May transfer to oral anticoagulant. We'll also get an echocardiogram to assess LV function and rule out any right ventricular strain. 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 Past Anesthesia/Blood Transfusion Reactions: Motion Sickness Additional Past Anesthesia/Blood Transfusion Reaction / Comment(s): Pt states she has difficulty awakening from general anesthesia- slow to wake. She was in ICU post op because of this. Date of Last Stent Placement:: 04/27/15 Past Psychological History: No Psychological Hx Reported Additional Psychological History / Comment(s): Pt resides with her spouse. She is independent. She uses a cane due to L hip pain. She drives. Smoking Status: Former smoker Past Alcohol Use History: None Reported Additional Past Alcohol Use History / Comment(s): Pt states she has been an on and off smoker since about 1984. stopped smoking 04-05-15 Past Drug Use History: Marijuana Additional Drug Use History / Comment(s): EDIBLE MARIJUANA USE-INSTRUCTED TO REFRAIN FROM USE FOR AT LEAST 24 HOURS PRIOR TO PROCEDURE - Past Family History Father Family Medical History: Myocardial Infarction ([place]) Additional Family Medical History / Comment(s): Father in his early 30's of a [place] Sister(s) Family Medical History: Myocardial Infarction ([place]) Additional Family Medical History / Comment(s): Sister at age 32yrs of a [place] Mother Additional Family Medical History / Comment(s): Mother is alive and is 80yrs old -she is healthy. Medications and Allergies Home Medications Medication Instructions Recorded Confirmed Type Calcium Carbonate [Calcium] 600 mg PO DAILY 12/28/16 06/25/21 History Cholecalciferol [Vitamin D3 (25 25 mcg PO DAILY 12/28/16 06/25/21 History Mcg = 1000 Iu)] Ascorbic Acid [Vitamin C] 1,000 mg PO DAILY 10/13/20 06/25/21 History lisinopriL 40 mg PO DAILY 10/13/20 06/25/21 History Chlorthalidone 25 mg PO DAILY 04/17/21 06/25/21 History Aspirin 81 mg PO DAILY 06/25/21 06/25/21 History Atorvastatin [Lipitor] 80 mg PO DAILY 06/25/21 06/25/21 History HYDROcodone/APAP 5-325MG [[place] 5] 1 tab PO Q6H PRN 06/25/21 06/25/21 History Ibuprofen [Motrin] 800 mg PO Q6H PRN 06/25/21 06/25/21 History Metoprolol Succinate [Toprol XL] 50 mg PO HS 06/25/21 06/25/21 History Multivit-Min/FA/Lycopen/Lutein 1 tab PO DAILY 06/25/21 06/25/21 History [Centrum Silver Tablet] Allergies Allergy/AdvReac Type Severity Reaction Status Date / Time No Known Allergies Allergy Verified 06/25/21 08:08 Physical Exam Vitals: Vital Signs Temp Pulse Pulse Resp BP BP Pulse Ox 06/25/21 07:49 97.7 F 61 18 128/51 98 06/25/21 04:00 97.8 F 68 18 143/73 97 06/25/21 01:52 98.3 F 66 18 149/77 96 06/25/21 01:30 98.5 F 79 20 138/76 97 06/24/21 21:46 97.9 F 83 20 179/72 99 Intake and Output 06/24/21 06/25/21 06/25/21 22:59 06:59 14:59 Intake Total 168.763 Balance 168.763 Intake: Intake, IV Titration 168.763 Amount Heparin Sod,Pork in 0.45% 168.763 NaCl 25,000 unit In 0.45 % NaCl 1 250ml.bag @ 18 UNITS/KG/HR 21.228 mls/hr IV .[id number] [facility] Rx#: [id number] Other: # Voids 2 Weight 117.934 kg 117.934 kg 117.934 kg GENERAL EXAM: Patient is alert and oriented and doesn't appear to be in any acute distress HEENT: Normocephalic. Normal reaction of pupils, equal size, normal range of extraocular motion. No erythema or exudates in the throat. NECK: No masses, no nuchal rigidity. CHEST: No chest wall deformity. LUNGS: Equal air entry with no crackles or wheeze. HEART: S1 and S2 normal with no audible mumurs or gallops. Regular rhythm, femorals equal on both sides.. ABDOMEN: No hepatosplenomegaly, normal bowel sounds, no guarding or rigidity. SKIN: No rashes CENTRAL NERVOUS SYSTEM: No focal deficits. EXTREMITIES: No cyanosis, clubbing or edema. Results 06/25/21 00:18 06/24/21 22:45 Cardiac Enzymes 06/24/21 06/24/21 Range/Units 22:45 22:45 AST 23 (14-36) U/L Troponin I <0.012 (0.000-0.034) ng/mL Coagulation 06/24/21 06/25/21 06/25/21 Range/Units 22:45 00:18 07:17 PT 10.9 11.5 (9.0-12.0) sec APTT 22.7 22.6 190.3 H* (22.0-30.0) sec CBC 06/24/21 06/25/21 Range/Units 22:45 00:18 WBC 7.3 6.7 (3.8-10.6) k/uL RBC 3.96 3.73 L (3.80-5.40) m/uL Hgb 11.7 11.1 L (11.4-16.0) gm/dL Hct 35.9 34.2 (34.0-46.0) % Plt Count 257 220 (150-450) k/uL Comprehensive Metabolic Panel 06/24/21 Range/Units 22:45 Sodium 138 (137-145) mmol/L Potassium 3.9 (3.5-5.1) mmol/L Chloride 102 (98-107) mmol/L Carbon Dioxide 22 (22-30) mmol/L BUN 28 H (7-17) mg/dL Creatinine 1.09 H (0.52-1.04) mg/dL Glucose 160 H (74-99) mg/dL Calcium 9.2 (8.4-10.2) mg/dL AST 23 (14-36) U/L ALT 20 (4-34) U/L Alkaline Phosphatase 85 (38-126) U/L Total Protein 7.4 (6.3-8.2) g/dL Albumin 3.9 (3.5-5.0) g/dL Current Medications Generic Name Dose Route Start Last Admin Trade Name Freq PRN Reason Stop Dose Admin Acetaminophen 650 mg 06/25/21 00:08 Acetaminophen Tab 325 Mg Tab PO Q6HR PRN Mild Pain or Fever > 100.5 Famotidine 20 mg 06/25/21 09:00 Famotidine 20 Mg Tab PO BID MONICA Heparin Sodium (Porcine) 0 unit 06/25/21 00:01 Heparin Sodium 1,000 Un/Ml (10ml Vl) IV PER PROTOCOL PRN Low PTT Protocol Hydromorphone HCl 0.5 mg 06/25/21 00:08 Hydromorphone 0.5 Mg/0.5 Ml Syringe IVP Q3HR PRN Moderate Pain Heparin Sodium/Sodium Chloride 250 mls @ 21.228 mls/hr 06/25/21 00:15 06/25/21 08:44 25,000 unit/ Sodium Chloride IV 0 units/kg/hr .[id number] MONICA 0 mls/hr Titration Protocol 18 UNITS/KG/HR Sodium Chloride 1,000 mls @ 20 mls/hr 06/25/21 00:15 06/25/21 01:50 Saline 0.9% IV 20 mls/hr .Q24H MONICA Administration Morphine Sulfate 4 mg 06/25/21 00:08 Morphine Sulfate 4 Mg/Ml Syringe IV Q4HR PRN Severe Pain Naloxone HCl 0.2 mg 06/25/21 00:08 Naloxone 0.4 Mg/Ml 1 Ml Vial IV Q2M PRN Opioid Reversal Ondansetron HCl 4 mg 06/25/21 00:08 Ondansetron 4 Mg/2 Ml Vial IVP Q8HR PRN Nausea And Vomiting Intake and Output 06/24/21 06/25/21 06/25/21 22:59 06:59 14:59 Intake Total 168.763 Balance 168.763 Intake: Intake, IV Titration 168.763 Amount Heparin Sod,Pork in 0.45% 168.763 NaCl 25,000 unit In 0.45 % NaCl 1 250ml.bag @ 18 UNITS/KG/HR 21.228 mls/hr IV .[id number] [facility] Rx#: [id number] Other: # Voids 2 Weight 117.934 kg 117.934 kg 117.934 kg Patient Weight 06/26/21 06:59 Weight 117.934 kg 06/25/21 00:18 06/24/21 22:45 EKG Interpretations (text) Sinus rhythm Assessment and Plan (1) Pulmonary embolism Current Visit: Yes Status: Acute Code(s): I26.99 - OTHER PULMONARY EMBOLISM WITHOUT ACUTE COR PULMONALE SNOMED Code(s): 45330631 (2) CAD (coronary artery disease) Current Visit: No Status: Acute Code(s): I25.10 - ATHSCL HEART DISEASE OF [place] CORONARY ARTERY W/O ANG PCTRS SNOMED Code(s): 79214754 (3) Chest pain Current Visit: No Status: Acute Code(s): R07.9 - CHEST PAIN, UNSPECIFIED SNOMED Code(s): 66959934 (4) Hypertension Current Visit: No Status: Acute Code(s): I10 - ESSENTIAL (PRIMARY) HYPERTEN [place] SNOMED Code(s): 40428109 Plan: Continue current medical therapy. Echocardiogram. Further examination depend upon clinical course
[2021-06-25] MEDS: FAMOTIDINE 20 MG TAB PO SCH ×2 (09:46→19:59)
[2021-06-25] MEDS ORDERED: HYDROcodone/APAP 5-325MG 1 EACH TAB PO PRN (10:03)
--- NOTE | 2021-06-25 10:03 | P.HPIM ---
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 Patient says that her symptoms actually started [place] but was getting worse yesterday, she didn't want to combat her [place] her. She has little dyspnea especially with exertion but no cough or hemoptysis. No leg pain or swelling. No other GI or urinary symptoms. No headache or dizziness or weakness. Patient had a robotic hysterectomy about 3 weeks ago for endometrial cancer. Vitals are stable and patient is saturating 97% on room air. Labs reviewed showing unremarkable CBC, INR, d-dimer was elevated 1.9. BMP is unremarkable except for slightly elevated creatinine at 1.09 which is close to baseline of 0.7-0.8. Glucose 160. Liver enzymes not elevated. Troponin is less than 0.012. Coronal vitals not detected EKG is showing normal sinus rhythm at [address]-T changes and QTC 440. Chest: Bilateral lower lobe pulmonary embolism. No evidence of heart strain. chest x-ray: Minimal pleural reaction on the left lung base slightly increased compared to old exam. Normal heart. Patient is started on heparin drip in the emergency room. Review of Systems CONSTITUTIONAL: No fever, no malaise, no fatigue. HEENT: No recent visual problems or hearing problems. Denied any sore throat. CARDIOVASCULAR: No orthopnea, PND, no palpitations, no syncope. PULMONARY: No shortness of breath, no cough, no hemoptysis. GASTROINTESTINAL: No diarrhea, no nausea, no vomiting, no abdominal pain. Normoactive bowel sounds. NEUROLOGICAL: No headaches, no weakness, no numbness. HEMATOLOGICAL: Denies any bleeding or petechiae. GENITOURINARY: Denies any burning micturition, frequency, or urgency. MUSCULOSKELETAL/RHEUMATOLOGICAL: Denies any joint pain, swelling, or any muscle pain. ENDOCRINE: Denies any polyuria or polydipsia. 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 Past Anesthesia/Blood Transfusion Reactions: Motion Sickness Additional Past Anesthesia/Blood Transfusion Reaction / Comment(s): Pt states she has difficulty awakening from general anesthesia- slow to wake. She was in ICU post op because of this. Date of Last Stent Placement:: 04/27/15 Past Psychological History: No Psychological Hx Reported Additional Psychological History / Comment(s): Pt resides with her spouse. She is independent. She uses a cane due to L hip pain. She drives. Smoking Status: Former smoker Past Alcohol Use History: None Reported Additional Past Alcohol Use History / Comment(s): Pt states she has been an on and off smoker since about 1984. stopped smoking 04-05-15 Past Drug Use History: Marijuana Additional Drug Use History / Comment(s): EDIBLE MARIJUANA USE-INSTRUCTED TO REFRAIN FROM USE FOR AT LEAST 24 HOURS PRIOR TO PROCEDURE - Past Family History Father Family Medical History: Myocardial Infarction ([place]) Additional Family Medical History / Comment(s): Father in his early 30's of a [place] Sister(s) Family Medical History: Myocardial Infarction ([place]) Additional Family Medical History / Comment(s): Sister at age 32yrs of a [place] Mother Additional Family Medical History / Comment(s): Mother is alive and is 80yrs old -she is healthy. Medications and Allergies Home Medications Medication Instructions Recorded Confirmed Type Calcium Carbonate [Calcium] 600 mg PO DAILY 12/28/16 06/25/21 History Cholecalciferol [Vitamin D3 (25 25 mcg PO DAILY 12/28/16 06/25/21 History Mcg = 1000 Iu)] Ascorbic Acid [Vitamin C] 1,000 mg PO DAILY 10/13/20 06/25/21 History lisinopriL 40 mg PO DAILY 10/13/20 06/25/21 History Chlorthalidone 25 mg PO DAILY 04/17/21 06/25/21 History Aspirin 81 mg PO DAILY 06/25/21 06/25/21 History Atorvastatin [Lipitor] 80 mg PO DAILY 06/25/21 06/25/21 History HYDROcodone/APAP 5-325MG [[place] 5] 1 tab PO Q6H PRN 06/25/21 06/25/21 History Ibuprofen [Motrin] 800 mg PO Q6H PRN 06/25/21 06/25/21 History Metoprolol Succinate [Toprol XL] 50 mg PO HS 06/25/21 06/25/21 History Multivit-Min/FA/Lycopen/Lutein 1 tab PO DAILY 06/25/21 06/25/21 History [Centrum Silver Tablet] Allergies Allergy/AdvReac Type Severity Reaction Status Date / Time No Known Allergies Allergy Verified 06/25/21 08:08 Physical Exam Vitals: Vital Signs Temp Pulse Pulse Resp BP BP Pulse Ox 06/25/21 04:00 97.8 F 68 18 143/73 97 06/25/21 01:52 98.3 F 66 18 149/77 96 06/25/21 01:30 98.5 F 79 20 138/76 97 06/24/21 21:46 97.9 F 83 20 179/72 99 Intake and Output 06/24/21 06/25/21 06/25/21 22:59 06:59 14:59 Other: # Voids 2 Weight 117.934 kg 117.934 kg GENERAL: The patient is alert and oriented x3, not in any acute distress. Well developed, well nourished. HEENT: Pupils are round and equally reacting to light. EOMI. No scleral icterus. No conjunctival pallor. Normocephalic, atraumatic. No pharyngeal erythema. No thyromegaly. CARDIOVASCULAR: S1 and S2 present. No murmurs, rubs, or gallops. PULMONARY: Chest is clear to auscultation, no wheezing or crackles. ABDOMEN: Soft, nontender, nondistended, normoactive bowel sounds. No palpable organomegaly. MUSCULOSKELETAL: No joint swelling or deformity. EXTREMITIES: No cyanosis, clubbing, or pedal edema. NEUROLOGICAL: Gross neurological examination did not reveal any focal deficits. SKIN: No rashes. No petechiae Results CBC & Chem 7: 06/25/21 00:18 06/24/21 22:45 Labs: Abnormal Lab Results - Last 24 Hours (Table) 06/24/21 06/24/21 06/25/21 Range/Units 22:45 22:45 00:18 RBC 3.73 L (3.80-5.40) m/uL Hgb 11.1 L (11.4-16.0) gm/dL D-Dimer 1.98 H (<0.60) mg/L FEU BUN 28 H (7-17) mg/dL Creatinine 1.09 H (0.52-1.04) mg/dL Glucose 160 H (74-99) mg/dL Thrombosis Risk Factor Assmnt - Choose All That Apply Each Factor Represents 1 point: History of prior major surgery (<1month), Obesity (BMI >25) Each Risk Factor Represents 2 Points: Age 61-74 years Thrombosis Risk Factor Assessment Total Risk Factor Score: 4 Thrombosis Risk Factor Assessment Level: Moderate Risk Assessment and Plan Assessment: Acute bilateral pulmonary embolism history of OA in bilateral hips-needs L hip replacement history of endometreal cancer at this post hysterectomy hisory of coronary artery disease status post Heart Catheterization With Stent Plan: this is a pleasant 60 years old female who presents with acute pulmonary embolism Continue with anticoagulation on heparin drip. Check echocardiogram Pulmonary consult Check lower extremity Doppler Labs and medication were reviewed.. Continue same treatment. Continue with symptomatic treatment. Resume home medication. Monitor lytes and vitals. DVT and GI prophylaxis. Further recommendations depends on the clinical course of the patient DVT prophylaxis: Subcutaneous heparin GI Prophylaxis: Pepcid PT/OT: Pending Prognosis is guarded
--- NOTE | 2021-06-25 11:43 | US ---
EXAMINATION TYPE: US venous doppler duplex LE DATE OF EXAM: 06/25/2021 9:45 AM COMPARISON: NONE CLINICAL HISTORY: leg swelling. New PE, no leg complaints, h/o endometrial CA SIDE PERFORMED: Bilateral TECHNIQUE: The lower extremity deep venous system is examined utilizing real time linear array sonog eileen with graded compression, doppler sonography and color-flow sonography. VESSELS IMAGED: Common Femoral Vein Deep Femoral Vein Greater Saphenous Vein * Femoral Vein Popliteal Vein Small Saphenous Vein * Proximal Calf Veins (* superficial vessels) Right Leg: Negative for DVT Left Leg: Negative for DVT Grayscale, color doppler, spectral doppler imaging performed of the deep veins of the lower extremiti es. There is normal flow, compressibility, vascular waveforms bilaterally. IMPRESSION: No sonographic evidence for deep vein thrombosis of the lower extremities.
[2021-06-25] MEDS: APIXABAN 5 MG TAB PO SCH ×2 (13:18→19:59)
--- NOTE | 2021-06-25 15:03 | P.CNPUL ---
History of Present Illness Consult date: 06/25/21 Requesting physician: Santiago Pendleton Reason for consult: pulmonary embolism Chief complaint: Right-sided chest pain History of present illness: This is a 61-year-old female with history of multiple medical problems including recently diagnosed endometrial cancer and status post hysterectomy patient is yet to receive chemotherapy for her recently diagnosed endometrial cancer. Patient is also known to have history of coronary artery disease and previous stent placement, degenerative joint disease, patient presented with an acute and sudden onset of right-sided chest pain radiating to the back of 1 minute in duration. Symptoms started actually on [place] Tiff and they have been intermittently getting worse. Patient had no cough, no fever, no chills, no hemoptysis, and she had very minimal shortness of breath if any. CT angiogram on admission showed bilateral lower lobe pulmonary embolism, patient was started on heparin. And this consult was initiated. Venous Doppler was negative for DVT bilaterally. Echocardiogram is pending, but no clear-cut evidence of ventricular strain noted on the CT angiogram of the chest. Patient is now on heparin, seems to be doing well, she is asymptomatic, and I will recommend that to transition the patient to Eliquis and possibly discharged home the patient in the next 24 hours on Eliquis. Considering her underlying malignancy I would recommend lifetime treatment with anticoagulation therapy. Patient had no previous history of thromboembolic disease including DVT or pulmonary embolism. Review of Systems CONSTITUTIONAL: Negative. HEENT: Negative. CARDIOVASCULAR: No orthopnea, PND, no palpitations, no syncope. PULMONARY: As noted in HPI. GASTROINTESTINAL: No diarrhea, no nausea, no vomiting, no abdominal pain. Normoactive bowel sounds. NEUROLOGICAL: No headaches, no weakness, no numbness. HEMATOLOGICAL: Negative. GENITOURINARY: Denies any burning micturition, frequency, or urgency. MUSCULOSKELETAL/RHEUMATOLOGICAL: Negative. ENDOCRINE: Denies any polyuria or polydipsia. 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 Past Anesthesia/Blood Transfusion Reactions: Motion Sickness Additional Past Anesthesia/Blood Transfusion Reaction / Comment(s): Pt states she has difficulty awakening from general anesthesia- slow to wake. She was in ICU post op because of this. Date of Last Stent Placement:: 04/27/15 Past Psychological History: No Psychological Hx Reported Additional Psychological History / Comment(s): Pt resides with her spouse. She is independent. She uses a cane due to L hip pain. She drives. Smoking Status: Former smoker Past Alcohol Use History: None Reported Additional Past Alcohol Use History / Comment(s): Pt states she has been an on and off smoker since about 1984. stopped smoking 04-05-15 Past Drug Use History: Marijuana Additional Drug Use History / Comment(s): EDIBLE MARIJUANA USE-INSTRUCTED TO REFRAIN FROM USE FOR AT LEAST 24 HOURS PRIOR TO PROCEDURE - Past Family History Father Family Medical History: Myocardial Infarction ([place]) Additional Family Medical History / Comment(s): Father in his early 30's of a [place] Sister(s) Family Medical History: Myocardial Infarction ([place]) Additional Family Medical History / Comment(s): Sister at age 32yrs of a [place] Mother Additional Family Medical History / Comment(s): Mother is alive and is 80yrs old -she is healthy. Medications and Allergies Home Medications Medication Instructions Recorded Confirmed Type Calcium Carbonate [Calcium] 600 mg PO DAILY 12/28/16 06/25/21 History Cholecalciferol [Vitamin D3 (25 25 mcg PO DAILY 12/28/16 06/25/21 History Mcg = 1000 Iu)] Ascorbic Acid [Vitamin C] 1,000 mg PO DAILY 10/13/20 06/25/21 History lisinopriL 40 mg PO DAILY 10/13/20 06/25/21 History Chlorthalidone 25 mg PO DAILY 04/17/21 06/25/21 History Aspirin 81 mg PO DAILY 06/25/21 06/25/21 History Atorvastatin [Lipitor] 80 mg PO DAILY 06/25/21 06/25/21 History HYDROcodone/APAP 5-325MG [[place] 5] 1 tab PO Q6H PRN 06/25/21 06/25/21 History Ibuprofen [Motrin] 800 mg PO Q6H PRN 06/25/21 06/25/21 History Metoprolol Succinate [Toprol XL] 50 mg PO HS 06/25/21 06/25/21 History Multivit-Min/FA/Lycopen/Lutein 1 tab PO DAILY 06/25/21 06/25/21 History [Centrum Silver Tablet] Allergies Allergy/AdvReac Type Severity Reaction Status Date / Time No Known Allergies Allergy Verified 06/25/21 08:08 Physical Exam Vitals: Vital Signs Temp Pulse Pulse Resp BP BP Pulse Ox 06/25/21 12:00 98.1 F 66 16 127/63 97 06/25/21 08:00 61 18 06/25/21 07:49 97.7 F 61 18 128/51 98 06/25/21 04:00 97.8 F 68 18 143/73 97 06/25/21 01:52 98.3 F 66 18 149/77 96 06/25/21 01:30 98.5 F 79 20 138/76 97 06/24/21 21:46 97.9 F 83 20 179/72 99 Intake and Output 06/24/21 06/25/21 06/25/21 22:59 06:59 14:59 Intake Total 168.763 Balance 168.763 Intake: Intake, IV Titration 168.763 Amount Heparin Sod,Pork in 0.45% 168.763 NaCl 25,000 unit In 0.45 % NaCl 1 250ml.bag @ 18 UNITS/KG/HR 21.228 mls/hr IV .[id number] [facility] Rx#: [id number] Other: Voiding Method Toilet # Voids 2 Weight 117.934 kg 117.934 kg 117.934 kg Physical Exam revealed 60-year-old female in no distress very pleasant, on room air with O2 saturation 97%. Head: Atraumatic normocephalic. HEENT:[Neck is supple.] [No neck masses.] [No thyromegaly.] [No JVD.] Chest: [Clear throughout, no crackles, no rhonchi, no wheezes.] Cardiac Exam: [Normal S1 and S2, no S3 gallop, no murmur.] Abdomen: [Soft, nontender, no megaly, no rebound, no guarding, normal bowel sounds.] Extremities: [No clubbing, no edema, no cyanosis.] Neurological Exam: [No focal neurologic deficit.] Alert and oriented 3. Psychiatric: Normal mood affect and normal mental status examination. Skin: No rashes. Results - Laboratory Findings CBC and BMP: 06/25/21 00:18 06/24/21 22:45 PT/INR, D-dimer PT 11.5 sec (9.0-12.0) 06/25/21 00:18 INR 1.1 (<1.2) 06/25/21 00:18 D-Dimer 1.98 mg/L FEU (<0.60) H 06/24/21 22:45 Abnormal lab findings: Abnormal Labs 06/24/21 06/24/21 06/25/21 22:45 22:45 00:18 RBC 3.73 L Hgb 11.1 L APTT D-Dimer 1.98 H BUN 28 H Creatinine 1.09 H Glucose 160 H Hemoglobin A1c 06/25/21 06/25/21 07:17 07:17 RBC Hgb APTT 190.3 H* D-Dimer BUN Creatinine Glucose Hemoglobin A1c 6.1 H - Diagnostic Findings CT scan - chest: image reviewed (As noted in HPI.) Assessment and Plan Assessment: Impression: Acute bilateral pulmonary embolism, most likely provoked by her underlying malignancy. History of recently diagnosed uterine cancer History of coronary artery disease and previous stent placement. Morbid obesity. History of degenerative joint disease. Recommendation: Continue heparin Transition patient to Eliquis and possibly discharge home in the next 24 hours. Follow-up on outpatient basis. Continue GI prophylaxis. Will see the patient on outpatient basis post discharge. Time with Patient: Greater than 30
[2021-06-25] MEDS ORDERED: METOPROLOL SUCCINATE (ER) 50 MG TAB.ER.24H PO SCH (21:00)
[2021-06-26] MEDS: SODIUM CHLORIDE 0.9% 1,000 ML IV SCH (04:59)
[2021-06-26 07:24] LABS: Basophils # (A) 0.1 k/uL (0-0.2); Basophils % (A) 1 %; Eosinophils # (A) 0.2 k/uL (0-0.7); Eosinophils % (A) 5 %; HCT 37.7 % (34.0-46.0); HGB 11.8 gm/dL (11.4-16.0); Lymphocytes # (A) 1.1 k/uL (1.0-4.8); Lymphocytes % (A) 29 %; MCH 29.4 pg (25.0-35.0); MCHC 31.4 g/dL (31.0-37.0); MCV 93.7 fL (80.0-100.0); Mean Platelet Volume 8.2; Monocytes # (A) 0.4 k/uL (0-1.0); Monocytes % (A) 9 %; Neutrophils % (A) 53 %; Platelet Count 245 k/uL (150-450); RBC 4.02 m/uL (3.80-5.40); RDW 12.7 % (11.5-15.5); WBC 3.8 k/uL (3.8-10.6)
--- NOTE | 2021-06-26 08:47 | P.PN ---
Subjective Progress Note Date: 06/26/21 Principal diagnosis: Pulmonary embolism The patient is a pleasant 60-year-old female patient was known coronary artery disease as well as hypertension and dyslipidemia who was admitted to the hospital with sudden onset of shortness of breath and a chest discomfort after recent surgery for uterine cancer. She was diagnosed with pulmonary embolism. The patient was seen this morning beach she stated that she is feeling better. Currently she has no symptoms of chest pain or chest discomfort and the shortness of breath has improved. She is satting 97% on room air. Echo is in process to be done. Hemodynamically she is stable with a good blood pressure and heart rate. Currently she is on Eliquis at 10 mg by mouth twice a day. Pulmonary is on the case as well. Objective - Vital Signs Vital signs: Vital Signs Temp 97.9 F 06/25/21 20:00 Pulse 63 06/26/21 04:00 Resp 18 06/26/21 04:00 BP 146/84 06/26/21 04:00 Pulse Ox 97 06/26/21 04:00 Intake & Output 06/25/21 06/26/21 06/26/21 18:59 06:59 18:59 Intake Total 1308.763 Balance 1308.763 Weight 117.934 kg Intake: Intake, IV Titration 168.763 Amount Heparin Sod,Pork in 0.45% 168.763 NaCl 25,000 unit In 0.45 % NaCl 1 250ml.bag @ 18 UNITS/KG/HR 21.228 mls/hr IV .[id number] [facility] Rx#: [id number] Oral 1140 Other: Voiding Method Toilet # Voids 2 1 # Bowel Movements 1 1 - Constitutional General appearance: Present: no acute distress - Respiratory Respiratory: bilateral: CTA - Cardiovascular Rhythm: regular Heart sounds: normal: S1, S2 - Labs CBC & Chem 7: 06/26/21 06:58 06/24/21 22:45 Labs: Abnormal Lab Results - Last 24 Hours (Table) 06/25/21 06/25/21 Range/Units 07:17 15:13 APTT 75.5 H (22.0-30.0) sec Hemoglobin A1c 6.1 H (4.0-6.0) % Assessment and Plan Assessment: Assessment #1 pulmonary embolism #2 status post uterine surgery for uterine cancer #3 coronary artery disease #4 multiple comorbid conditions Plan #1 continue oral anticoagulation #2 keep the patient on oral anticoagulation probably indefinitely or at least as far as the cancer is active #3 follow-up on the echocardiogram #4 discharged in the next 12-24 hours
[2021-06-26] MEDS ORDERED: ASCORBIC ACID 500 MG TAB PO SCH (09:00)
[2021-06-26] MEDS ORDERED: CALCIUM CARBONATE 500 MG CHEWABLE PO SCH (09:00)
[2021-06-26] MEDS ORDERED: CHLORTHALIDONE 25 MG TAB PO SCH (09:00)
[2021-06-26] MEDS ORDERED: ATORVASTATIN 80 MG TAB PO SCH (09:00)
[2021-06-26] MEDS ORDERED: CHOLECALCIFEROL 25 MCG (1000 IU) TABLET PO SCH (09:00)
[2021-06-26] MEDS ORDERED: lisinopriL 20 MG TAB PO SCH (09:00)
[2021-06-26] MEDS ORDERED: ASPIRIN 81 MG PO SCH (09:00)
[2021-06-26] MEDS: FAMOTIDINE 20 MG TAB PO SCH (09:15)
[2021-06-26 09:19] VITALS: RESP 16; TEMP 98.5
--- NOTE | 2021-06-26 11:03 | ECHOF ---
Referral Reason:PE MEASUREMENTS -------- HEIGHT: 172.7 cm WEIGHT: 117.9 kg BP: RVIDd: 3.0 cm (< 3.3) IVSd: 1.4 cm (0.6 - 1.1) LVIDd: 3.7 cm (3.9 - 5.3) LVPWd: 1.6 cm (0.6 - 1.1) IVSs: 1.8 cm LVIDs: 1.9 cm LVPWs: 1.9 cm Ao Diam: 3.4 cm (2.0 - 3.7) AV Cusp: 2.0 cm (1.5 - 2.6) LA Diam: 3.6 cm (2.7 - 3.8) MV EXCURSION: 15.184 mm (> 18.000) MV EF SLOPE: 81 mm/s (70 - 150) EPSS: 0.6 cm MV E Sam: 0.93 m/s MV DecT: 187 ms MV A Sam: 0.85 m/s MV E/A Ratio: 1.10 RAP: 5.00 mmHg RVSP: 24.76 mmHg FINDINGS -------- This was a technically difficult study with suboptimal apical views. The left ventricular size is normal. There is moderate concentric left ventricular hypertrophy. O verall left ventricular systolic function is normal with, an EF between 55 - 60 %. The right ventricle is normal in size. The left atrial size is normal. The right atrial size is normal. The aortic valve is trileaflet and appears structurally normal. The mitral valve is normal. The mitral valve leaflets are mildly thickened. There is trace mitral regurgitation. The tricuspid valve appears structurally normal. Trace tricuspid regurgitation present. Right iggy tricular systolic pressure is normal at < 35 mmHg. There is no pulmonic regurgitation present. The aortic root size is normal. Normal inferior vena cava with normal inspiratory collapse consistent with estimated right atrial pre ssure of 5 mmHg. There is no pericardial effusion. CONCLUSIONS -------- 1. This was a technically difficult study with suboptimal apical views. 2. The left ventricular size is normal. 3. There is moderate concentric left ventricular hypertrophy. 4. Overall left ventricular systolic function is normal with, an EF between 55 - 60 %. 5. The mitral valve leaflets are mildly thickened. 6. There is trace mitral regurgitation. 7. Trace tricuspid regurgitation present. 8. There is no pericardial effusion. GAME AUTHOR: Sheri Parker RDCS
--- NOTE | 2021-06-26 11:46 | P.PN ---
Subjective Progress Note Date: 06/26/21 Principal diagnosis: Right-sided chest discomfort, acute pulmonary embolism This is a 61-year-old female with history of multiple medical problems including recently diagnosed endometrial cancer and status post hysterectomy patient is yet to receive chemotherapy for her recently diagnosed endometrial cancer. Patient is also known to have history of coronary artery disease and previous stent placement, degenerative joint disease, patient presented with an acute and sudden onset of right-sided chest pain radiating to the back of 1 minute in duration. Symptoms started actually on [place] Tiff and they have been intermittently getting worse. Patient had no cough, no fever, no chills, no hemoptysis, and she had very minimal shortness of breath if any. CT angiogram on admission showed bilateral lower lobe pulmonary embolism, patient was started on heparin. And this consult was initiated. Venous Doppler was negative for DVT bilaterally. Echocardiogram is pending, but no clear-cut evidence of ventricular strain noted on the CT angiogram of the chest. Patient is now on heparin, seems to be doing well, she is asymptomatic, and I will recommend that to transition the patient to Eliquis and possibly discharged home the patient in the next 24 hours on Eliquis. Considering her underlying malignancy I would recommend lifetime treatment with anticoagulation therapy. Patient had no previous history of thromboembolic disease including DVT or pulmonary embolism. On 06/26/2021 patient seen in follow-up on selective care unit, she is awake and alert, breathing comfortable, denies any acute distress, lung sounds are clear to auscultation, she is sitting up in the recliner, denies any specific complaints, she is currently on 2 L of oxygen with a pulse ox of 93%. Yesterday we switched the patient to oral Eliquis, heparin has been discontinued, echocardiogram is pending. No complaints of chest pain overnight, his labs have been reviewed, and CBC is essentially within normal limits, she was tested for COVID-19 which was negative, hemoglobin is 5 feet is slightly elevated at 6.1. There was no clear evidence of ventricular strain on the CT angiogram of the chest. Echocardiogram showed moderate concentric LVH, EF of 55-60%, right ventricle is normal in size. No evidence of pulmonary hypertension and right ventricular systolic pressure was normal at less than 35 mmHg. Objective - Vital Signs Vital signs: Vital Signs Temp 98.5 F 06/26/21 08:00 Pulse 75 06/26/21 08:00 Resp 16 06/26/21 08:00 BP 160/78 06/26/21 08:00 Pulse Ox 96 06/26/21 08:00 Intake & Output 06/25/21 06/26/21 06/26/21 18:59 06:59 18:59 Intake Total 1308.763 Balance 1308.763 Weight 117.934 kg Intake: Intake, IV Titration 168.763 Amount Heparin Sod,Pork in 0.45% 168.763 NaCl 25,000 unit In 0.45 % NaCl 1 250ml.bag @ 18 UNITS/KG/HR 21.228 mls/hr IV .[id number] [facility] Rx#: [id number] Oral 1140 Other: Voiding Method Toilet Toilet # Voids 2 1 # Bowel Movements 1 1 - Exam GENERAL EXAM: Alert, very pleasant, 60-year-old white female, sitting up in the chair, on 2 L of oxygen with a pulse ox of 93%, comfortable in no apparent distress. HEAD: Normocephalic/atraumatic. EYES: Normal reaction of pupils, equal size. Conjunctiva pink, sclera white. NOSE: Clear with pink turbinates. THROAT: No erythema or exudates. NECK: No masses, no JVD, no thyroid enlargement, no adenopathy. CHEST: No chest wall deformity. Symmetrical expansion. LUNGS: Equal air entry with clear breath sounds CVS: Regular rate and rhythm, normal S1 and S2, no gallops, no murmurs, no rubs ABDOMEN: Soft, nontender. No hepatosplenomegaly, normal bowel sounds, no guarding or rigidity. EXTREMITIES: No clubbing, no edema, no cyanosis, 2+ pulses and upper and lower extremities. MUSCULOSKELETAL: Muscle strength and tone normal. SPINE: No scoliosis or deformity SKIN: No rashes CENTRAL NERVOUS SYSTEM: Alert and oriented -3. No focal deficits, tone is normal in all 4 extremities. PSYCHIATRIC: Alert and oriented -3. Appropriate affect. Intact judgment and insight. - Labs CBC & Chem 7: 06/26/21 06:58 06/24/21 22:45 Labs: Abnormal Lab Results - Last 24 Hours (Table) 06/25/21 06/25/21 Range/Units 07:17 15:13 APTT 75.5 H (22.0-30.0) sec Hemoglobin A1c 6.1 H (4.0-6.0) % Assessment and Plan Plan: Assessment: #1. Acute pulmonary embolism without evidence of RV strain on the CT angiogram of the chest or the echocardiogram. Patient was initially on heparin infusion which has now been switched over to Eliquis #2. No evidence of DVT on lower extremity Dopplers #3. Uterine cancer, status post hysterectomy #4. Coronary artery disease #5. Morbid obesity with BMI of 39.5 kg/m #6. Hypertension #7. Dyslipidemia Plan: Continue oral anticoagulation Echocardiogram has been reviewed by evidence of RV strain or pulmonary hyp ertension Vital signs are stable Increase activity as tolerated Patient has been transitioned to oral Eliquis Clear for discharge from pulmonary perspective. Cleared by cardiology and medicine Outpatient follow-up with Dr. Raymundo in the office in 2-3 weeks I performed a history & physical examination of the patient and discussed their management with my nurse practitioner, Chani Adam. I reviewed the nurse practitioner's note and agree with the documented findings and plan of care. Lung sounds are positive for dim breath sounds throughout the lung chaudhry. The findings and the impression was discussed with the patient. I attest to the documentation by the nurse practitioner. Time with Patient: Less than 30
[2021-06-26] MEDS: APIXABAN 5 MG TAB PO SCH (12:11)
[2021-06-26 12:13] VITALS: BP 124/76; PULSE 77
== END 2021-06-26 13:39 | disposition home or self-care (01) ==
LOC: EC 21:45 → 3SCARD 06-25 00:08
PROVIDERS: ADMIT Internal Medicine; ATTEND Internal Medicine
DX: I26.99 Other pulmonary embolism without acute cor pulmonale (principal); C54.1 Malignant neoplasm of endometrium; I10 Essential (primary) hypertension; I25.10 Atherosclerotic heart disease of native coronary artery without angina pectoris; M16.0 Bilateral primary osteoarthritis of hip; E28.2 Polycystic ovarian syndrome; E78.5 Hyperlipidemia, unspecified; K64.8 Other hemorrhoids; R79.89 Other specified abnormal findings of blood chemistry; E66.01 Morbid (severe) obesity due to excess calories; Z68.39 Body mass index [BMI] 39.0-39.9, adult; Z20.822 Contact with and (suspected) exposure to COVID-19; Z79.82 Long term (current) use of aspirin; Z79.899 Other long term (current) drug therapy; Z87.891 Personal history of nicotine dependence; Z95.5 Presence of coronary angioplasty implant and graft; Z90.710 Acquired absence of both cervix and uterus; Z86.010 Personal history of colon polyps; Z98.890 Other specified postprocedural states; Z82.49 Family history of ischemic heart disease and other diseases of the circulatory system
CPT/HCPCS: 96366; 96376; 96365; 96375; 99285; 36415 ×2; 93005; 93306; 85379; 80053; 83735; 84484; 85025 ×3; 85610 ×2; 85730 ×2; 83036; 87635; 71046; 93970; 71275; G0378 ×2; J2405; J1644 ×2; J1170 ×2; Q9967

== ENCOUNTER 2021-07-18 09:49 | Day surgery (SDC) | payer MEDICARE ==
[2021-07-11 12:56] VITALS: BMI 41.5
[~2021-07-18 09:49] MED LIST changes: +ACETAMINOPHEN TAB 500 MG TAB PO PRN; +HEPARIN SODIUM,PORCINE/PF 5,000 UNIT/0.5 ML SYRINGE SQ PRN; +HYDROmorphone 0.5 MG/0.5 ML SYRINGE IVP PRN; +MIDAZOLAM 2 MG/2 ML VIAL IV PRN; -SCOPOLAMINE 1.5MG/72HR PATCH TRANSDERM ONE
--- NOTE | 2021-07-18 10:22 | P.GSHP ---
History of Present Illness H&P Date: 07/18/21 Chief Complaint: Endometrial cancer 60-year-old female here today for Port-A-Cath placement. Patient was recently diagnosed with endometrial cancer. Starting chemotherapy in the next few weeks. She has not had a port previously. Past Medical History Past Medical History: Cancer, Hyperlipidemia, Hypertension, Pulmonary Embolus (PE) Additional Past Medical History / Comment(s): small internal hemorrhoid, g eneralized arthiritis, OA in bilateral hips-needs L hip replacement, endometreal cancer. HX PE 06/24/21 History of Any Multi-Drug Resistant Organisms: None Reported Past Surgical History: Heart Catheterization, Heart Catheterization With Stent, Hysterectomy Additional Past Surgical History / Comment(s): Laparoscopy - PCOS, 08/09/09 colonoscopy with benign polypectomy.04-27-15 heart cath w/stent to lad. D & C Past Anesthesia/Blood Transfusion Reactions: Motion Sickness Additional Past Anesthesia/Blood Transfusion Reaction / Comment(s): Pt states she has difficulty awakening from general anesthesia- slow to wake. She was in ICU post op because of this. Date of Last Stent Placement:: 04/27/15 Smoking Status: Former smoker - Past Family History Father Family Medical History: Myocardial Infarction ([place]) Additional Family Medical History / Comment(s): Father in his early 30's of a [place] Sister(s) Family Medical History: Myocardial Infarction ([place]) Additional Family Medical History / Comment(s): Sister at age 32yrs of a [place] Mother Additional Family Medical History / Comment(s): Mother is alive and is 80yrs old -she is healthy. Medications and Allergies Home Medications Medication Instructions Recorded Confirmed Type Calcium Carbonate [Calcium] 600 mg PO DAILY 12/28/16 06/25/21 History Cholecalciferol [Vitamin D3 (25 25 mcg PO DAILY 12/28/16 06/25/21 History Mcg = 1000 Iu)] Ascorbic Acid [Vitamin C] 1,000 mg PO DAILY 10/13/20 06/25/21 History lisinopriL 40 mg PO DAILY 10/13/20 06/25/21 History Chlorthalidone 25 mg PO DAILY 04/17/21 06/25/21 History Aspirin 81 mg PO DAILY 06/25/21 06/25/21 History Atorvastatin [Lipitor] 80 mg PO DAILY 06/25/21 06/25/21 History HYDROcodone/APAP 5-325MG [[place] 1 tab PO Q6H PRN 06/25/21 06/25/21 History 5-325] Ibuprofen [Motrin] 800 mg PO Q6H PRN 06/25/21 06/25/21 History Metoprolol Succinate [Toprol XL] 50 mg PO HS 06/25/21 06/25/21 History Multivit-Min/FA/Lycopen/Lutein 1 tab PO DAILY 06/25/21 06/25/21 History [Centrum Silver Tablet] Apixaban [Eliquis] 10 mg PO BID #60 tab 06/26/21 Rx Allergies Allergy/AdvReac Type Severity Reaction Status Date / Time No Known Allergies Allergy Verified 07/18/21 10:08 Surgical - Exam Physical exam: General: Well-developed, well-nourished HEENT: Normocephalic, sclerae nonicteric Abdomen: Nontender, nondistended Extremities: No edema Neuro: Alert and oriented Assessment and Plan (1) Endometrial cancer Narrative/Plan: Will proceed with Port-A-Cath placement at this time. Risks of bleeding, infection, DVT, pneumothorax, catheter malfunction, anesthesia related complications were discussed. The patient understands and wishes to proceed. Current Visit: Yes Status: Acute Code(s): C54.1 - MALIGNANT NEOPLASM OF ENDOMETRIUM SNOMED Code(s): 974155241
[2021-07-18 10:24] VITALS: TEMP 98.3
[2021-07-18] MEDS ORDERED: HEPARIN SODIUM,PORCINE/PF 5,000 UNIT/0.5 ML SYRINGE SQ ONE (10:29)
[2021-07-18] MEDS ORDERED: LIDOCAINE 1% INJ 10MG/ML (20 ML MDV) ONE (11:17)
[2021-07-18] MEDS ORDERED: PROPOFOL 10 MG/ML 20 ML VIAL IV ONE (11:17)
[2021-07-18] MEDS ORDERED: fentaNYL (PF) 50 MCG/ML 2 ML AMP ONE (11:17)
[2021-07-18] MEDS ORDERED: SUCCINYLCHOLINE CHLORIDE VIAL 200 MG/10 ML VIAL IV ONE (11:17)
[2021-07-18] MEDS ORDERED: MIDAZOLAM 2 MG/2 ML VIAL ONE (11:17)
[2021-07-18] MEDS ORDERED: SODIUM CHLORIDE 0.9% 50 ML with ceFAZolin 2,000 MG IV ONE ×2 (12:15)
[2021-07-18] MEDS ORDERED: LIDOCAINE (PF) 10 MG/ML 2 ML VIAL SQ ONE ×2 (12:33)
[2021-07-18] MEDS ORDERED: HEPARIN SODIUM,PORCINE 100 UNIT/ML 5 ML VIAL IV ONE ×2 (12:35)
[2021-07-18] MEDS ORDERED: HYDROcodone/APAP 5-325MG 1 EACH TAB PO PRN (13:01)
[2021-07-18] MEDS ORDERED: NALOXONE 0.4 MG/ML 1 ML VIAL IV PRN (13:01)
--- NOTE | 2021-07-18 13:04 | P.OP ---
Date of Procedure: 07/18/21 Procedure(s) Performed: PREOPERATIVE DIAGNOSIS: Endometrial cancer POSTOPERATIVE DIAGNOSIS: Same PROCEDURE: Port-A-Cath placement with fluoroscopic and ultrasound guidance SURGEON: Billie EBL: Minimal ANESTHESIA: General COMPLICATIONS: None OPERATIVE PROCEDURE: Patient was brought and placed on the operative table in the supine position. The patient was placed under general anesthesia per anesthesia that time. The chest and neck were prepped and draped in usual sterile fashion. The ultrasound probe was used to identify the location of the right internal jugular vein. The skin was localized with lidocaine. The Seldinger needle was advanced into the IJ under ultrasound guidance. The wire was advanced through the needle under fluoroscopic guidance into the superior vena cava. A port pocket was created in the right infraclavicular location. The catheter was tunneled from the wire entrance site to the port pocket. The port was then connected to the catheter. The dilator introducer was threaded over the guidewire. The guidewire and dilator were then removed. The catheter was advanced through the introducer and introducer was then removed. The tip was seen to be in the right atrial junction via fluoroscopy. A picture of the radiograph showing the tip at the radial digital junction was taken. Port was flushed with both saline and a Hep-Lock solution. There was good flow both in and out of the port. The port was sutured in underlying tissues using 3-0 silk sutures. The subcutaneous tissues were reapproximated using 3-0 Vicryl sutures and the skin at both locations using 4-0 Monocryl sutures. Skin glue and sterile dressings then applied. DISPOSITION: Stable to recovery room
--- NOTE | 2021-07-18 13:21 | FL ---
EXAMINATION TYPE: FL guided central line placement DATE OF EXAM: 07/18/2021 CLINICAL HISTORY: Port-A-Cath insertion. TECHNIQUE: Fluoroscopy. COMPARISON: None. FINDINGS: Fluoroscopic guidance was provided during Mediport catheter insertion procedure performed by Dr. Wise A total of 6 seconds of fluoroscopic time was utilized during the procedure and 1 spot images was acquired. Images acquired shows partial visualization of right internal jugular Mediport c atheter. Tip not well seen on intraoperative image saved. Overlying endotracheal tube noted. IMPRESSION: As Above.
[2021-07-18 13:26] VITALS: RESP 16
[2021-07-18 14:12] VITALS: BP 110/69; PULSE 76
--- NOTE | 2021-07-18 14:12 | XR ---
EXAMINATION TYPE: XR chest 1V confirm line [facility] DATE OF EXAM: 07/18/2021 COMPARISON: 06/24/2021 HISTORY: Port-A-Cath placement TECHNIQUE: Single frontal view of the chest is obtained. FINDINGS: Right-sided Mediport catheter is tip overlying the SVC. Arthropathy of the AC joints. Subs egmental changes left lower lobe. Heart size normal. No overt failure. Hypertrophic change of the spi ne. IMPRESSION: 1. Mediport in good position with no sizable pneumothorax. 2. Left basilar atelectasis favored over early pneumonia correlate clinically.
== END 2021-07-18 14:52 | disposition home or self-care (01) ==
LOC: OR 09:49
PROVIDERS: ATTEND Surgery
DX: C54.1 Malignant neoplasm of endometrium (principal); E78.5 Hyperlipidemia, unspecified; I10 Essential (primary) hypertension; Z86.711 Personal history of pulmonary embolism; K64.8 Other hemorrhoids; M16.0 Bilateral primary osteoarthritis of hip; Z95.5 Presence of coronary angioplasty implant and graft; Z90.710 Acquired absence of both cervix and uterus; Z98.890 Other specified postprocedural states; Z87.891 Personal history of nicotine dependence; Z82.49 Family history of ischemic heart disease and other diseases of the circulatory system; Z79.01 Long term (current) use of anticoagulants; Z79.82 Long term (current) use of aspirin; Z79.899 Other long term (current) drug therapy
CPT/HCPCS: 77001; 36561; 76937; C1788; J2250; J0330; J2001 ×2; J1642; J1100; J2405; J0690; J3010; J2704; J1644

== ENCOUNTER → 2021-12-18 | Outpatient (CLI) | payer MEDICARE ==
--- NOTE | 2021-12-18 22:05 | CT ---
EXAMINATION TYPE: CT abdomen pelvis w con DATE OF EXAM: 12/18/2021 COMPARISON: No previous CT scan is available for comparison HISTORY: obs for mets. Endometrial ca CT DLP: 2469.0 mGycm Automated exposure control for dose reduction was used. TECHNIQUE: Helical acquisition of images was performed from the lung bases through the pelvis. CONTRAST: Performed with Oral Contrast and with IV Contrast, patient injected with 100 mL of Isovue 300. FINDINGS: LUNG BASES: Coronary arterial calcifications. LIVER/GB: Gallbladder calculi measuring up to 5 cm. No signs of acute cholecystitis however chronic c holecystitis cannot be excluded. No definite hepatic focal lesion identified. PANCREAS: No significant abnormality is seen. SPLEEN: No significant abnormality is seen. ADRENALS: No significant abnormality is seen. KIDNEYS: No significant abnormality is seen. FREE AIR: No free air is visualized. RETROPERITONEAL ADENOPATHY: None visualized REPRODUCTIVE ORGANS: Previous hysterectomy. No gross adnexal mass. URINARY BLADDER: Nondistended. PELVIC ADENOPATHY: Subcentimeter bilateral inguinal lymph nodes. No pathologically enlarged lymph no herrera. OSSEOUS STRUCTURES: Marked degenerative changes of the left hip joint. Osteopenia. Degenerative alvarado ges of the lower thoracic and lumbar spine. BOWEL: Unremarkable stomach, duodenum and small bowel. Fecal loading of the colon. Scattered uncompl icated colonic diverticulosis. Segments of wall thickening seen in the ascending colon, recommend cor relation with colonoscopy results. Normal appendix. OTHER: Scattered arterial atherosclerotic calcifications. No sizable ascites. IMPRESSION: No evidence of metastatic disease seen in the abdomen or the pelvis. Incidental findings and recommen dations as described above.
== END | disposition home or self-care (01) ==
LOC: RADCTMAIN 17:28
PROVIDERS: ATTEND Internal Medicine Hematology & Oncology
DX: C54.1 Malignant neoplasm of endometrium (principal); K57.30 Diverticulosis of large intestine without perforation or abscess without bleeding
CPT/HCPCS: 74177; Q9967

== ENCOUNTER 2022-02-05 10:12 | Day surgery (SDC) | payer MEDICARE ==
[2022-01-31 15:42] VITALS: BMI 37.9
[~2022-02-05 10:12] MED LIST changes: -Pre Op ABX Message 1 EACH MISC MISCELLANE ONE
[2022-02-05 10:38] VITALS: RESP 18; TEMP 97.6
--- NOTE | 2022-02-05 11:32 | P.GSHP ---
History of Present Illness H&P Date: 02/05/22 Chief Complaint: Endometrial cancer 61-year-old female with recent diagnosis of endometrial cancer. Had a Port-A-Cath placed by myself. She no longer is using the port as of November. Here for Port-A-Cath removal. Past Medical History Past Medical History: Cancer, GERD/Reflux, Hyperlipidemia, Hypertension, Pulmonary Embolus (PE) Additional Past Medical History / Comment(s): Hemorrhoids. Uterine cancer, had h ysterectomy and treated with chemo (last 12/25/21) and radiation (last 11/06/21). Hx bilateral PE's 06/24/21 after hysterectomy. Neuropathy bilateral feet and hands. Gout. History of Any Multi-Drug Resistant Organisms: None Reported Past Surgical History: Heart Catheterization, Heart Catheterization With Stent, Hysterectomy Additional Past Surgical History / Comment(s): Laparoscopy for PCOS, colonoscopy with benign polypectomy, 04-27-15 heart cath w/stent to lad, D&C. Past Anesthesia/Blood Transfusion Reactions: Motion Sickness Additional Past Anesthesia/Blood Transfusion Reaction / Comment(s): Sometimes has difficulty awakening from general anesthesia- slow to wake, was in ICU post op because of this. Date of Last Stent Placement:: 04/27/15 Past Psychological History: No Psychological Hx Reported Smoking Status: Former smoker Past Alcohol Use History: None Reported Additional Past Alcohol Use History / Comment(s): Was an on and off smoker since about 1984, quit 04-05-15. Additional Drug Use History / Comment(s): EDIBLE MARIJUANA USE. Aware no use 24 hrs prior to procedure. - Past Family History Father Family Medical History: Myocardial Infarction (NH) Additional Family Medical History / Comment(s): Father in his early 30's of a NH. Sister(s) Family Medical History: Myocardial Infarction (NH) Additional Family Medical History / Comment(s): Sister at age 32yrs of a NH. Mother Family Medical History: No Reported History Additional Family Medical History / Comment(s): Mother is alive and is 80yrs old -she is healthy. Medications and Allergies Home Medications Medication Instructions Recorded Confirmed Type Aspirin 81 mg PO QAM 06/25/21 02/05/22 History Atorvastatin [Lipitor] 80 mg PO QAM 06/25/21 02/05/22 History Metoprolol Succinate [Toprol XL] 50 mg PO 06/25/21 02/05/22 History Apixaban [Eliquis] 5 mg PO BID 08/06/21 02/05/22 History Ascorbic Acid [Vitamin C] 1,000 mg PO QAM 08/06/21 02/05/22 History Cholecalciferol [Vitamin D3 (125 125 mcg PO QAM 01/31/22 02/05/22 History Mcg = 5000 Iu)] Gabapentin 300 mg PO HS 01/31/22 02/05/22 History Multivit with Calcium,Iron,Min 1 each PO QAM 01/31/22 02/05/22 History [Women's Multivitamin] allopurinoL [Zyloprim] 100 mg PO HS 01/31/22 02/05/22 History Allergies Allergy/AdvReac Type Severity Reaction Status Date / Time No Known Allergies Allergy Verified 02/05/22 10:28 Surgical - Exam Vital Signs Temp Pulse Resp BP Pulse Ox 97.6 F 69 18 191/84 99 02/05/22 10:34 02/05/22 10:34 02/05/22 10:34 02/05/22 10:34 02/05/22 10:34 Physical exam: General: Well-developed, well-nourished HEENT: Normocephalic, sclerae nonicteric Abdomen: Nontender, nondistended Extremities: No edema Neuro: Alert and oriented Assessment and Plan (1) Endometrial cancer Narrative/Plan: 61-year-old female with endometrial cancer. We'll proceed with Port-A-Cath removal at this time. Current Visit: No Status: Acute Priority: High Code(s): C54.1 - MALIGNANT NEOPLASM OF ENDOMETRIUM SNOMED Code(s): 135507614
[2022-02-05] MEDS ORDERED: fentaNYL (PF) 50 MCG/ML 2 ML AMP ONE (11:50)
[2022-02-05] MEDS ORDERED: LIDOCAINE 2% INJ 20 MG/ML (2 ML VIAL) ONE (11:50)
[2022-02-05] MEDS ORDERED: KETAMINE 10 MG/ML 20 ML VIAL ONE (11:50)
[2022-02-05] MEDS ORDERED: MIDAZOLAM 2 MG/2 ML VIAL ONE (11:50)
[2022-02-05] MEDS ORDERED: PROPOFOL 10 MG/ML 20 ML VIAL IV ONE (11:50)
[2022-02-05] MEDS ORDERED: LIDOCAINE 1% INJ 10MG/ML (20 ML MDV) SQ ONE ×2 (12:06→12:13)
[2022-02-05] MEDS ORDERED: NALOXONE 0.4 MG/ML 1 ML VIAL IV PRN (12:27)
[2022-02-05] MEDS ORDERED: ONDANSETRON 4 MG/2 ML VIAL IVP PRN (12:27)
--- NOTE | 2022-02-05 12:28 | P.OP ---
Date of Procedure: 02/05/22 Procedure(s) Performed: PREOPERATIVE DIAGNOSIS: Endometrial cancer POSTOPERATIVE DIAGNOSIS: Same PROCEDURE: Port-A-Cath removal SURGEON: Billie EBL: Minimal ANESTHESIA: Sedation COMPLICATIONS: None OPERATIVE PROCEDURE: Patient was placed in the supine position. The patient was sedated per anesthesia that time. The chest was prepped and draped in the usual sterile fashion. The skin was localized with Marcaine solution. The previous incision was re-incised using a scalpel. The port was easily excised using accommodation of blunt dissection sharp dissection and electrocautery. The subcutaneous tissues were reapproximated using 3-0 Vicryl sutures. The skin was reapproximated using 4-0 Monocryl sutures. Skin glue was then applied. DISPOSITION: Stable to recovery room
[2022-02-05 12:50] VITALS: BP 145/78; PULSE 61
== END 2022-02-05 13:22 | disposition home or self-care (01) ==
LOC: OR 10:12
PROVIDERS: ATTEND Surgery
DX: C54.1 Malignant neoplasm of endometrium (principal); I10 Essential (primary) hypertension; E78.5 Hyperlipidemia, unspecified; Z86.711 Personal history of pulmonary embolism; K21.9 Gastro-esophageal reflux disease without esophagitis; M10.9 Gout, unspecified; M19.90 Unspecified osteoarthritis, unspecified site; Z79.82 Long term (current) use of aspirin; Z79.899 Other long term (current) drug therapy; Z79.01 Long term (current) use of anticoagulants; Z87.891 Personal history of nicotine dependence; Z82.49 Family history of ischemic heart disease and other diseases of the circulatory system; Z95.5 Presence of coronary angioplasty implant and graft; Z80.0 Family history of malignant neoplasm of digestive organs
CPT/HCPCS: 36590; J2250; J1100; J0690; J2405; J2001 ×2; J3010; J2704; J1644

== ENCOUNTER → 2022-05-23 | Outpatient (CLI) | payer MEDICARE ==
--- NOTE | 2022-05-23 09:07 | BD ---
EXAMINATION TYPE: Axial Bone Density DATE OF EXAM: 05/23/2022 COMPARISON: NONE CLINICAL HISTORY: 61 year old Female. ICD-10 CODE: M85.851 DISORDER OF BONE Height: 67 Weight: 253.5 FRAX RISK QUESTIONS: Alcohol (3 or more units per day): no Family History (Parent hip fracture): no Glucocorticoids (More than 3mos): no (Ex: prednisone, prednisolone, methylprednisolone, dexamethasone, and hydrocortisone). History of Fracture in Adulthood: yes Secondary Osteoporosis: 1. Type 1 Diabetes: no 2. Hyperthyroidism: no 3. Menopause before 45:no 4. Malnutrition: no 5. Chronic liver disease: no Rheumatoid Arthritis: no Current Tobacco Use: no RISK FACTORS HISTORY OF: Surgery to Spine/Hip(right/left)/Wrist (right/left): no Family History of Osteoporosis: no Active: yes Diet low in dairy products/other sources of calcium: yes Postmenopausal woman: yes Lost more than 2 inches in height since high school: no MEDICATIONS: Additional History: EXAM MEASUREMENTS: Bone mineral densitometry was performed using the [facility]. Bone mineral density as measured about the Lumbar spine is: ----- L1-L4(G/cm2): 1.363 T Score Values are as follows: ----- L1: 1.2 ----- L2: 0.2 ----- L3: 1.9 ----- L4: 2.6 ----- L1-L4: 1.5 Bone mineral density : baseline Bone mineral density about the R hip (g/cm2): 0.921 Bone mineral density about the L hip (g/cm2): 1.289 T Score values are as follows: -----R Neck: -0.8 -----L Neck: 1.8 -----R Total: -0.8 -----L Total: 0.6 Bone mineral density : baseline FRAX%s: The graph provided illustrates a 5.2% chance for a major osteoporotic fx and a 0.5% chance fo r the hips probability for fx in 10 years time. IMPRESSION: Normal (Values between +1 and -1 indicate normal bone mass). Consider repeating this study in 5 year s or sooner if there is some new clinical indication. NOTE: T-SCORE=SD OF THE YOUNG ADULT MEAN.
--- NOTE | 2022-05-23 16:01 | MM ---
Reason for Exam: Screening (asymptomatic). Last mammogram was performed 13 year(s) and 10 month(s) ago. Patient History: Menarche at age 8. Patient has no children. Left ovary removed at age 61. Right ovary removed at age 61. Hysterectomy at age 61. Previous chemotherapy at age 61. Hormonal Contraceptives, starting at age 18 for 8 years. Risk Values: Naomi 5 year model risk: 1.9%. NCI Lifetime model risk: 8.1%. Prior Study Comparison: 05/10/2003 Bilateral Screening Mammogram, [facility] WITH [facility]. 06/04/2003 Right Special View Mammogram, [facility]. 07/25/2007 Bilateral Diagnostic Mammogram, [facility]. 01/23/2008 Right Diagnostic Mammogram, [facility]. 07/26/2008 Bilateral Diagnostic Mammogram, [facility]. Tissue Density: The breast tissue is almost entirely fat. Findings: Analyzed By CAD. There is no suspicious group of microcalcifications or new suspicious mass in either breast. Overall Assessment: Negative, BI-RAD 1 Management: Screening Mammogram of both breasts in 1 year. A clinical breast exam by your physician is recommended on an annual basis and results should be correlated with mammographic findings. [facility] will attempt to contact patient to return for supplemental views and ultrasound if indicated. Electronically signed and approved by: Thomas Mancia DO
== END | disposition home or self-care (01) ==
LOC: RADMAMWWP 07:24
PROVIDERS: ATTEND Internal Medicine
DX: Z12.31 Encounter for screening mammogram for malignant neoplasm of breast (principal); M85.851 Other specified disorders of bone density and structure, right thigh; Z90.721 Acquired absence of ovaries, unilateral
CPT/HCPCS: 77063; 77067; 77080

== ENCOUNTER → 2022-06-20 | Outpatient (CLI) | payer MEDICARE ==
--- NOTE | 2022-06-20 22:50 | CT ---
EXAMINATION TYPE: CT abdomen pelvis w con CT DLP: 2643.0 mGycm, Automated exposure control for dose reduction was used. DATE OF EXAM: 06/20/2022 5:48 PM COMPARISON: CT abdomen pelvis most recent from 12/18/2021 CLINICAL INDICATION:Female, 61 years old with history of C54.9 MALIGNANT NEOPLASM OF CORPUS UTERI, UN SPECIF; HX OF UTERINE CA TECHNIQUE: Axial CT of the abdomen and pelvis. Sagittal and coronal reformats were created on a [employer] workstation. Contrast used:100ML mL of Isovue 300 with IV Contrast, Oral contrast used: with Oral Contrast FINDINGS: LOWER CHEST: Heart is enlarged for size. Atherosclerosis. ABDOMEN LIVER: Diffusely hypoattenuating parenchyma. GALLBLADDER AND BILE DUCTS: Layering increased densities within the lumen consistent with gallstones are present. PANCREAS: Unremarkable. SPLEEN: Unremarkable. ADRENAL GLANDS: Unremarkable. KIDNEYS AND URETERS: No evidence of hydronephrosis or renal calculus. The ureters are unremarkable. PELVIS BLADDER: Unremarkable REPRODUCTIVE: The uterus is surgically absent. No evidence of local recurrence. ABDOMEN & PELVIS STOMACH AND BOWEL: No evidence of bowel obstruction. Appendix is normal. PERITONEUM: No evidence of pneumoperitoneum or free fluid. VASCULATURE: Mild atherosclerotic calcifications are present throughout the abdominal aorta and its b ranches. No evidence of aortic aneurysm. MUSCULOSKELETAL: No acute osseous abnormalities, multilevel disc degeneration changes are present. Th ere is severe degeneration changes of the left hip. LYMPH NODES: No gross evidence for lymphadenopathy. SOFT TISSUE/ABDOMINAL WALL: Unremarkable IMPRESSION: 1. No evidence for metastatic disease. 2. Cholelithiasis. 3. Hepatic steatosis.
== END | disposition home or self-care (01) ==
LOC: RADCTMAIN 15:52
PROVIDERS: ATTEND Internal Medicine Hematology & Oncology
DX: C54.9 Malignant neoplasm of corpus uteri, unspecified (principal); K80.20 Calculus of gallbladder without cholecystitis without obstruction; K76.0 Fatty (change of) liver, not elsewhere classified; D70.2 Other drug-induced agranulocytosis; G62.0 Drug-induced polyneuropathy; I26.99 Other pulmonary embolism without acute cor pulmonale
CPT/HCPCS: 74177; Q9967

== ENCOUNTER 2022-06-22 19:02 | Emergency (ER) | payer MEDICARE ==
[2022-06-22 19:06] VITALS: BP 180/99; PULSE 99; RESP 20; TEMP 98.8
[2022-06-22] MEDS ORDERED: KETOROLAC 15 MG/ML 1 ML VIAL IM STA (19:58)
[2022-06-22 20:13] LABS: Appearance,Urine Clear (Clear); Bilirubin,Urine Negative (Negative); Blood,Urine Negative (Negative); Color,Urine Colorless; Glucose,Urine (UA) Negative (Negative); Hyaline Casts,Urine 1 /lpf (0-2); Ketones,Urine Negative (Negative); Leukocyte Esterase,Urine Small (Negative); Nitrite,Urine Negative (Negative); PH, Urine 5.5 (5.0-8.0); Protein,Urine Negative (Negative); RBC,Urine 1 /hpf (0-5); Specific Gravity,Urine 1.007 (1.001-1.035); Squamous Epithelial Cell,Urine <1 /hpf (0-4); Urobilinogen,Urine <2.0 mg/dL (<2.0); WBC,Urine 3 /hpf (0-5)
--- NOTE | 2022-06-22 20:21 | ED ---
Abdominal Pain HPI - General Chief Complaint: Abdominal Pain Stated Complaint: lower back pain Time Seen by Provider: 06/22/22 19:05 Source: patient Mode of arrival: ambulatory Limitations: no limitations - History of Present Illness Initial Comments: 61-year-old female with past medical history of uterine cancer status post hysterectomy, chemoradiation, PE on Eliquis who presents to the emergency department reporting right lower back pain. States that her symptoms started 4 days ago. They are worse with movement and better with rest. She was showering when she lost her footing and slipped backwards. She reached out with her right arm caught herself. She was unsure if the pain was related to her near fall. She followed up in her primary care office. She had a CT of her abdomen and pelvis performed on the . She has yet to receive the results. She denies any urinary complaints. No dysuria, hematuria or difficulty voiding. No vag inal discharge or bleeding. Does report to dark stools however this is chronic for her. She has not taken anything for her pain at home. She takes gabapentin for chronic neuropathy and was unsure if any medications would be safe to take with him. She denies any chest pain or shortness of breath. No known metastasis. No saddle anesthesia. No other alleviating, precipitating or modifying factors - Related Data Home Medications Medication Instructions Recorded Confirmed Aspirin 81 mg PO QAM 06/25/21 06/22/22 Atorvastatin [Lipitor] 80 mg PO DAILY 06/25/21 06/22/22 Metoprolol Succinate [Toprol XL] 50 mg PO HS 06/25/21 06/22/22 Apixaban [Eliquis] 5 mg PO BID 08/06/21 06/22/22 Ascorbic Acid [Vitamin C] 500 mg PO DAILY 08/06/21 06/22/22 allopurinoL [Zyloprim] 100 mg PO DAILY 01/31/22 06/22/22 Calcium Carbonate [Calcium] 600 mg PO DAILY 06/22/22 06/22/22 Chlorthalidone [Hygroton] 25 mg PO DAILY 06/22/22 06/22/22 Ferrous Sulfate [Feosol] 325 mg PO DAILY 06/22/22 06/22/22 Gabapentin 900 mg PO TID 06/22/22 06/22/22 Multivit-Min/Iron/Folic/Lutein 1 tab PO DAILY 06/22/22 06/22/22 [Centrum Silver Women Tablet] lisinopriL 40 mg PO DAILY 06/22/22 06/22/22 Allergies Allergy/AdvReac Type Severity Reaction Status Date / Time No Known Allergies Allergy Verified 06/22/22 20:24 Review of Systems ROS Statement: Those systems with pertinent positive or pertinent negative responses have been documented in the HPI. ROS Other: All systems not noted in ROS Statement are negative. 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 HX PE 06/24/21 History of Any Multi-Drug Resistant Organisms: None Reported Past Surgical History: Heart Catheterization, Heart Catheterization With Stent, Hysterectomy Additional Past Surgical History / Comment(s): Laparoscopy - PCOS, 08/09/09 colonoscopy with benign polypectomy.04-27-15 heart cath w/stent to lad. D & C Past Anesthesia/Blood Transfusion Reactions: Motion Sickness Additional Past Anesthesia/Blood Transfusion Reaction / Comment(s): Pt states she has difficulty awakening from general anesthesia- slow to wake. She was in ICU post op because of this. Date of Last Stent Placement:: 04/27/15 Past Psychological History: No Psychological Hx Reported Smoking Status: Former smoker Past Alcohol Use History: None Reported Past Drug Use History: None Reported - Past Family History Father Family Medical History: Myocardial Infarction (ND) Additional Family Medical History / Comment(s): Father in his early 30's of a ND. Sister(s) Family Medical History: Myocardial Infarction (ND) Additional Family Medical History / Comment(s): Sister at age 32yrs of a ND. Mother Family Medical History: No Reported History Additional Family Medical History / Comment(s): Mother is alive and is 80yrs old -she is healthy. General Exam Limitations: no limitations General appearance: alert, in no apparent distress Head exam: Present: atraumatic, normocephalic, normal inspection Eye exam: Present: normal appearance, PERRL, EOMI. Absent: scleral icterus, conjunctival injection, periorbital swelling ENT exam: Present: normal exam, mucous membranes moist Neck exam: Present: normal inspection. Absent: tenderness, meningismus, lymphadenopathy Respiratory exam: Present: normal lung sounds bilaterally. Absent: respiratory distress, wheezes, rales, rhonchi, stridor Cardiovascular Exam: Present: regular rate, normal rhythm, normal heart sounds. Absent: systolic murmur, diastolic murmur, rubs, gallop, clicks GI/Abdominal exam: Present: soft, normal bowel sounds. Absent: distended, tenderness, guarding, rebound, rigid Extremities exam: Present: normal inspection, full ROM, normal capillary refill, other (5/5 muscle strength in all extremities). Absent: tenderness, pedal edema, joint swelling, calf tenderness Back exam: Present: paraspinal tenderness (on the right to palpation) Neurological exam: Present: alert, oriented X3, CN II-XII intact Psychiatric exam: Present: normal affect, normal mood Skin exam: Present: warm, dry, intact, normal color. Absent: rash Course Vital Signs 06/22/22 19:03 Temperature 98.8 F Pulse Rate 99 Respiratory 20 Rate Blood Pressure 180/99 O2 Sat by Pulse 96 Oximetry Medical Decision Making - Medical Decision Making Was pt. sent in by a medical professional or institution? No Did you speak to anyone other than the patient for history? No Did you review nursing and triage notes? Yes Were old charts reviewed? Outpatient CT from 06/20 reviewed. Results discussed with patient. Differential Diagnosis? MDM Differential Back Pain: Strain, zoster, cauda equina syndrome, epidural abscess, vertebral osteomyelitis, discitis, fracture, subluxation, disc herniation, DJD, spinal stenosis, dissection, AAA, pancreatitis, peptic ulcer disease, pyelonephritis, kidney stone this is not meant to be an all-inclusive list. EKG interpreted by me (3pts min.)? No X-rays interpreted by me (1pt min.)? No CT interpreted by me (1pt min.)? No U/S interpreted by me (1pt. min.)? No What testing was considered but not performed? (CT, X-rays, U/S, labs)? Why? Blood work considered however with clinical exam and recent CT, do not feel like blood work would provide any further diagnosis What meds were considered but not given? Why? [place]anerette - patient refuses opiates Did you discuss the management of the patient with other professionals? No Did you reconcile home meds? No Was smoking cessation discussed for >3mins.? No Was critical care preformed (if so, how long)? No Were there social determinants of health that impacted care today? How? (Homelessness, low income, unemployed, alcoholism, drug addiction, transportation, low edu. Level, literacy, decrease access to med. care, alf, rehab)? No Was there de-escalation of care discussed even if they declined? (Discuss DNR or withdrawal of care, Hospice)? No What co-morbidities impacted this encounter? (DM, HTN, Smoking, COPD, CAD, Cancer, CVA, Hep., AIDS, mental health diagnosis, sleep apnea, morbid obesity)? PE, uterine cancer history, peptic ulcer Was patient admitted / discharged? Discharged Undiagnosed new problem with uncertain prognosis? yes Drug Therapy requiring intensive monitoring for toxicity (Heparin, Nitro, Insulin, Cardizem)? No Were any procedures done? No Diagnosis/symptom? Acute low back strain Acute, or Chronic, or Acute on Chronic? Acute Uncomplicated (without systemic symptoms) or Complicated (systemic symptoms)? Uncomplicated Side effects of treatment? No Exacerbation, Progression, or Severe Exacerbation] No Poses a threat to life or bodily function? No Upon arrival patient was placed into room 23. Through history and exam was performed. Patient given 15 mg Toradol IM. UA obtained and normal. Evaluated outpatient CT which was remarkable for cholelithiasis. Patients symptoms not consistent with cholelithiasis. Patient satisfied with workup. She will be discharged and instructed to follow up with her PCP. Return for any new or worsening symptoms. Patient discharged in stable condition. - Lab Data Lab Results 06/22/22 Range/Units 20:07 Urine Color Colorless Urine Appearance Clear (Clear) Urine pH 5.5 (5.0-8.0) Ur Specific [place] 1.007 (1.001-1.035) Urine Protein Negative (Negative) Urine Glucose (UA) Negative (Negative) Urine Ketones Negative (Negative) Urine Blood Negative (Negative) Urine Nitrite Negative (Negative) Urine Bilirubin Negative (Negative) Urine Urobilinogen <2.0 (<2.0) mg/dL Ur Leukocyte Esterase Small H (Negative) Urine RBC 1 (0-5) /hpf Urine WBC 3 (0-5) /hpf Ur Squamous Epith Cells <1 (0-4) /hpf Hyaline Casts 1 (0-2) /lpf Disposition Clinical Impression: Low back pain Disposition: HOME SELF-CARE Condition: Stable Instructions (If sedation given, give patient instructions): Acute Low Back Pain (ED) Additional Instructions: Rest, place warm compresses to the site. Take your pain medication as needed. Follow-up with your doctor in 2-4 days and return for any new or worsening symptoms Is patient prescribed a controlled substance at d/c from ED?: No Referrals: Paris Simpson MD [Primary Care Provider] - 1-2 days Time of Disposition: 20:28
== END 2022-06-22 20:34 | disposition home or self-care (01) ==
LOC: EC 19:02
DX: M54.50 Low back pain, unspecified (principal); I10 Essential (primary) hypertension; E78.5 Hyperlipidemia, unspecified; Z87.891 Personal history of nicotine dependence; Z79.82 Long term (current) use of aspirin; Z79.01 Long term (current) use of anticoagulants; Z79.899 Other long term (current) drug therapy
CPT/HCPCS: 81001; 99284; 96372; J1885

== ENCOUNTER 2022-09-24 15:21 | Emergency (ER) | payer MEDICARE ==
[2022-09-24 15:30] VITALS: TEMP 98.3
[2022-09-24] MEDS ORDERED: MORPHINE SULFATE 2 MG/ML SYRINGE IM ONE (15:41)
[2022-09-24] MEDS ORDERED: methylPREDNISolone SOD SUCCI 125 MG/2 ML VIAL IM ONE (15:42)
--- NOTE | 2022-09-24 15:43 | ED ---
General Adult HPI - General Chief complaint: Back Pain/Injury Stated complaint: back pain Time Seen by Provider: 09/24/22 15:32 Source: patient, RN notes reviewed Mode of arrival: ambulatory Limitations: no limitations - History of Present Illness Initial comments: 61-year-old female with a past medical history of diabetic neuropathy who presents the emergency department with a chief complaint of acute low back pain. Patient reports that she was bent over picking something up from the ground approximately 4 days ago. She reports worsening pain to her right hip that radiates down her right leg. She denies any previous injury or trauma to the area. She denies any fever, chills, saddle paresthesia, loss of bowel or bladder function. She has been taking gabapentin, applying heat and ice to the area without symptomatic relief. - Related Data Home Medications Medication Instructions Recorded Confirmed Aspirin 81 mg PO QAM 06/25/21 06/22/22 Atorvastatin [Lipitor] 80 mg PO DAILY 06/25/21 06/22/22 Metoprolol Succinate [Toprol XL] 50 mg PO HS 06/25/21 06/22/22 Apixaban [Eliquis] 5 mg PO BID 08/06/21 06/22/22 Ascorbic Acid [Vitamin C] 500 mg PO DAILY 08/06/21 06/22/22 allopurinoL [Zyloprim] 100 mg PO DAILY 01/31/22 06/22/22 Calcium Carbonate [Calcium] 600 mg PO DAILY 06/22/22 06/22/22 Chlorthalidone [Hygroton] 25 mg PO DAILY 06/22/22 06/22/22 Ferrous Sulfate [Feosol] 325 mg PO DAILY 06/22/22 06/22/22 Gabapentin 900 mg PO TID 06/22/22 06/22/22 Multivit-Min/Iron/Folic/Lutein 1 tab PO DAILY 06/22/22 06/22/22 [Centrum Silver Women Tablet] lisinopriL 40 mg PO DAILY 06/22/22 06/22/22 Previous Rx's Medication Instructions Recorded predniSONE 10 mg PO DIRECTED #20 tab 09/24/22 Allergies Allergy/AdvReac Type Severity Reaction Status Date / Time No Known Allergies Allergy Verified 09/24/22 15:30 Review of Systems ROS Statement: Those systems with pertinent positive or pertinent negative responses have been documented in the HPI. ROS Other: All systems not noted in ROS Statement are negative. 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 HX PE 06/24/21 History of Any Multi-Drug Resistant Organisms: None Reported Past Surgical History: Heart Catheterization, Heart Catheterization With Stent, Hysterectomy Additional Past Surgical History / Comment(s): Laparoscopy - PCOS, 08/09/09 colonoscopy with benign polypectomy.04-27-15 heart cath w/stent to lad. D & C Past Anesthesia/Blood Transfusion Reactions: Motion Sickness Additional Past Anesthesia/Blood Transfusion Reaction / Comment(s): Pt states she has difficulty awakening from general anesthesia- slow to wake. She was in ICU post op because of this. Date of Last Stent Placement:: 04/27/15 Past Psychological History: No Psychological Hx Reported Smoking Status: Former smoker Past Alcohol Use History: None Reported Past Drug Use History: None Reported - Past Family History Father Family Medical History: Myocardial Infarction ([place]) Additional Family Medical History / Comment(s): Father in his early 30's of a [place]. Sister(s) Family Medical History: Myocardial Infarction ([place]) Additional Family Medical History / Comment(s): Sister at age 32yrs of a [place]. Mother Family Medical History: No Reported History Additional Family Medical History / Comment(s): Mother is alive and is 80yrs old -she is healthy. General Exam Limitations: no limitations General appearance: alert, in no apparent distress Head exam: Present: atraumatic, normocephalic, normal inspection Eye exam: Present: normal appearance, PERRL, EOMI. Absent: scleral icterus, conjunctival injection, periorbital swelling ENT exam: Present: normal exam, mucous membranes moist Neck exam: Present: normal inspection. Absent: tenderness, meningismus, lymphadenopathy Respiratory exam: Present: normal lung sounds bilaterally. Absent: respiratory distress, wheezes, rales, rhonchi, stridor Cardiovascular Exam: Present: regular rate, normal rhythm, normal heart sounds. Absent: systolic murmur, diastolic murmur, rubs, gallop, clicks GI/Abdominal exam: Present: soft, normal bowel sounds. Absent: distended, tenderness, guarding, rebound, rigid Extremities exam: Present: normal inspection, full ROM, normal capillary refill. Absent: tenderness, pedal edema, joint swelling, calf tenderness Back exam: Present: normal inspection Neurological exam: Present: alert, oriented X3, CN II-XII intact Psychiatric exam: Present: normal affect, normal mood Skin exam: Present: warm, dry, intact, normal color. Absent: rash Course Vital Signs 09/24/22 09/24/22 15:27 17:18 Temperature 98.3 F Pulse Rate 94 62 Respiratory 18 16 Rate Blood Pressure 127/67 119/71 O2 Sat by Pulse 100 98 Oximetry Medical Decision Making - Medical Decision Making Was pt. sent in by a medical professional or institution (, PA, SAMPLE BODY BUILDER, urgent care, hospital, or care home...) When possible be specific @ -[No] Did you speak to anyone other than the patient for history (EMS, parent, family, police, friend...)? What history was obtained from this source @ -[No] Did you review nursing and triage notes (agree or disagree)? Why? @ -[I reviewed and agree with nursing and triage notes] Were old charts reviewed (outside hosp., previous admission, EMS record, old EKG, old radiological studies, urgent care reports/EKG's, care home records)? Report findings @ -[No old charts were reviewed] Differential Diagnosis (chest pain, altered mental status, abdominal pain women, abdominal pain men, vaginal bleeding, weakness, fever, dyspnea, syncope, headache, dizziness, GI bleed, back pain, seizure, CVA, palpatations, mental health, musculoskeletal)? @ -[not applicable] EKG interpreted by me (3pts min.). @ -X-ray of lumbar spine with no acute changes there is degenerative disc disease between L4-L5 X-rays interpreted by me (1pt min.). @ -[None done] CT interpreted by me (1pt min.). @ -[None done] U/S interpreted by me (1pt. min.). @ -[None done] What testing was considered but not performed or refused? (CT, X-rays, U/S, labs)? Why? @ -[None] What meds were considered but not given or refused? Why? @ -[None] Did you discuss the management of the patient with other professionals (professionals i.e. , PA, SAMPLE BODY BUILDER, lab, RT, psych nurse, social studies department chair, lead pastor, teacher, division officer weapons department, employment case manager)? Give summary @ -[No] Was smoking cessation discussed for >3mins.? @ -[No] Was critical care preformed (if so, how long)? @ -[No] Were there social determinants of health that impacted care today? How? (Homelessness, low income, unemployed, alcoholism, drug addiction, transportation, low edu. Level, literacy, decrease access to med. care, penitentiary, r ehab)? @ -[No] Was there de-escalation of care discussed even if they declined (Discuss DNR or withdrawal of care, Hospice)? DNR status @ -[No] What co-morbidities impacted this encounter? (DM, HTN, Smoking, COPD, CAD, Cancer, CVA, ARF, Chemo, Hep., AIDS, mental health diagnosis, sleep apnea, morbid obesity)? @ -[None] Was patient admitted / discharged? Hospital course, mention meds given and route, prescriptions, significant lab abnormalities, going to OR and other pertinent info. @ -Discharged. This is a 61-year-old female who presents to the emergency department with acute low back pain. Patient had a thorough history and physical exam performed on the ED. Physical exam is essentially unremarkable. Heart rate regular rate and rhythm, lungs clear to auscultation bilaterally abdomen is soft and nontender. Patient able to ventilate with a steady gait. Patient was given morphine and Lidoderm patch with symptomatic relief on the ED. I discussed the results in detail with the patient verbalized understanding and all questions were addressed. Return precautions were discussed at length. She was encouraged to follow up with her PCP in 1-2 days. She was given a referral for Dr. Ulrich's and with orthopedics. The patient was discharged in stable condition. Case discussed with YURIY Baptiste who agrees with plan of care Undiagnosed new problem with uncertain prognosis? @ -[No] Drug Therapy requiring intensive monitoring for toxicity (Heparin, Nitro, Insulin, Cardizem)? @ -[No] Were any procedures done? @ -[No] Diagnosis/symptom? @ -low back pain Acute, or Chronic, or Acute on Chronic? @ -acute on chronic Uncomplicated (without systemic symptoms) or Complicated (systemic symptoms)? @ -[default] Side effects of treatment? @ -[No] Exacerbation, Progression, or Severe Exacerbation? @ -[No] Poses a threat to life or bodily function? How? (Chest pain, [place], [place], pneumonia, PE, COPD, DKA, ARF, appy, cholecystitis, CVA, Diverticulitis, Homicidal, Suicidal, threat to staff... and all critical care pts) @ -low likelihood Disposition Clinical Impression: Mechanical back pain Disposition: HOME SELF-CARE Condition: Stable Instructions (If sedation given, give patient instructions): Acute Low Back Pain (ED) Additional Instructions: Please return to the nearest emergency department if symptoms worsen or persist Please return to the emergency department if fever, saddle paresthesia, loss of bowel or bladder function Prescriptions: predniSONE 10 mg PO DIRECTED #20 tab Is patient prescribed a controlled substance at d/c from ED?: No Referrals: Paris Simpson MD [Primary Care Provider] - 1-2 days Ren Elliott DO [Doctor of Osteopathic Medicine] - 1-2 days Time of Disposition: 16:40
--- NOTE | 2022-09-24 16:02 | XR ---
EXAMINATION TYPE: XR lumbar spine 2 or 3V DATE OF EXAM: 09/24/2022 CLINICAL HISTORY: Acute low back pain. TECHNIQUE: Frontal and lateral images of the lumbar spine are obtained. COMPARISON: CT abdomen and pelvis June 20, 2022 FINDINGS: There are 5 lumbar type vertebral bodies redemonstrated. The lumbar spine shows stable an d satisfactory alignment without evidence of acute fracture or dislocation. Vertebral body heights ar e within normal limits. Vacuum disc phenomenon L4-L5 level with mild disc space narrowing is redemons trated. Extremely large calcified gallstone is partially imaged . IMPRESSION: As above.
[2022-09-24 17:21] VITALS: BP 119/71; PULSE 62; RESP 16
== END 2022-09-24 17:20 | disposition home or self-care (01) ==
LOC: EC 15:21
DX: M54.50 Low back pain, unspecified (principal); E78.5 Hyperlipidemia, unspecified; I10 Essential (primary) hypertension; Z86.711 Personal history of pulmonary embolism; Z87.891 Personal history of nicotine dependence; Z79.82 Long term (current) use of aspirin; Z79.899 Other long term (current) drug therapy; Z79.01 Long term (current) use of anticoagulants
CPT/HCPCS: 72100; 99284; 96372 ×2; J2930; J2270

== ENCOUNTER 2022-11-07 13:34 | Emergency (ER) | payer MEDICARE ==
[2022-11-07 13:39] VITALS: RESP 18
--- NOTE | 2022-11-07 13:51 | ED ---
Extremity Problem HPI - General Chief complaint: Extremity Problem,Nontraumatic Stated complaint: poss clot Time Seen by Provider: 11/07/22 13:43 Source: patient, RN notes reviewed Mode of arrival: wheelchair Limitations: no limitations - History of Present Illness Initial comments: Patient is a 62-year-old female presenting to the emergency room with concerns of posterior left knee pain with increased swelling to the right lower extremity. She denies any range of motion impairment, changes and chronic numbness/tingling or trauma. She reports that symptoms have ongoing for approximately 1 week but swelling and pain has increased within the last 24 hours. She reports that she is concerned of the development of a DVT in her right lower extremity however she is on Eliquis for history of pulmonary emboli and denies any missing of doses, trauma or prolonged immobility. She denies any other complaints or concerns at this time including any chest pain, shortness of breath, headache, dizziness, fevers or chills. In addition to her PE history she has a past medical history significant for hypertension, hyperlipidemia and uterine cancer. - Related Data Home Medications Medication Instructions Recorded Confirmed Aspirin 81 mg PO QAM 06/25/21 06/22/22 Atorvastatin [Lipitor] 80 mg PO DAILY 06/25/21 06/22/22 Metoprolol Succinate [Toprol XL] 50 mg PO HS 06/25/21 06/22/22 Apixaban [Eliquis] 5 mg PO BID 08/06/21 06/22/22 Ascorbic Acid [Vitamin C] 500 mg PO DAILY 08/06/21 06/22/22 allopurinoL [Zyloprim] 100 mg PO DAILY 01/31/22 06/22/22 Calcium Carbonate [Calcium] 600 mg PO DAILY 06/22/22 06/22/22 Chlorthalidone [Hygroton] 25 mg PO DAILY 06/22/22 06/22/22 Ferrous Sulfate [Feosol] 325 mg PO DAILY 06/22/22 06/22/22 Gabapentin 900 mg PO TID 06/22/22 06/22/22 Multivit-Min/Iron/Folic/Lutein 1 tab PO DAILY 06/22/22 06/22/22 [Centrum Silver Women Tablet] lisinopriL 40 mg PO DAILY 06/22/22 06/22/22 Previous Rx's Medication Instructions Recorded predniSONE 10 mg PO DIRECTED #20 tab 09/24/22 Allergies Allergy/AdvReac Type Severity Reaction Status Date / Time No Known Allergies Allergy Verified 09/24/22 15:30 Review of Systems ROS Statement: Those systems with pertinent positive or pertinent negative responses have been documented in the HPI. ROS Other: All systems not noted in ROS Statement are negative. 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 HX PE 06/24/21 History of Any Multi-Drug Resistant Organisms: None Reported Past Surgical History: Heart Catheterization, Heart Catheterization With Stent, Hysterectomy Additional Past Surgical History / Comment(s): Laparoscopy - PCOS, 08/09/09 colonoscopy with benign polypectomy.04-27-15 heart cath w/stent to lad. D & C Past Anesthesia/Blood Transfusion Reactions: Motion Sickness Additional Past Anesthesia/Blood Transfusion Reaction / Comment(s): Pt states she has difficulty awakening from general anesthesia- slow to wake. She was in ICU post op because of this. Date of Last Stent Placement:: 04/27/15 Past Psychological History: No Psychological Hx Reported Smoking Status: Former smoker Past Alcohol Use History: None Reported Past Drug Use History: None Reported - Past Family History Father Family Medical History: Myocardial Infarction ([place]) Additional Family Medical History / Comment(s): Father in his early 30's of a [place]. Sister(s) Family Medical History: Myocardial Infarction ([place]) Additional Family Medical History / Comment(s): Sister at age 32yrs of a [place]. Mother Family Medical History: No Reported History Additional Family Medical History / Comment(s): Mother is alive and is 80yrs old -she is healthy. General Exam - General Exam Comments Initial Comments: GENERAL: No acute distress, well developed, well nourished. HEENT: Normocephalic, atraumatic. Pupils equal, round, reactive to light. Moist mucous membranes. LUNGS: No respiratory distress or use of accessory muscles. HEART: Regular rate.. ABDOMEN: Non-distended. BACK: Normal inspection. EXTREMITIES: Right lower extremity +1 edema, trace pedal edema small effusion right knee. Full range of motion, decreased light sensation normal deep sensation. +2 pedal pulse. Right popliteal fossa with tender softer nodule. NEUROLOGIC: Alert & oriented x 3. CN II-XII grossly intact. PSYCHIATRIC: Normal affect and behavior. DERMATOLOGIC: No lower extremity discoloration. Skin intact, without rashes or lesions noted. Limitations: no limitations Course Vital Signs 11/07/22 11/07/22 13:35 15:37 Temperature 98.1 F 97.6 F Pulse Rate 86 88 Respiratory 18 18 Rate Blood Pressure 161/87 125/93 O2 Sat by Pulse 97 96 Oximetry Medical Decision Making - Medical Decision Making Was pt. sent in by a medical professional or institution (, PA, SALES DEVELOPMENT COORDINATOR, urgent care, hospital, or [place] health care facility...) When possible be specific @ -No Did you speak to anyone other than the patient for history (EMS, parent, family, police, friend...)? What history was obtained from this source @ -No Did you review nursing and triage notes (agree or disagree)? Why? @ -I reviewed and agree with nursing and triage notes Were old charts reviewed (outside hosp., previous admission, EMS record, old EKG, old radiological studies, urgent care reports/EKG's, [place] [facility] facility records)? Report findings @ -No old charts were reviewed Differential Diagnosis (chest pain, altered mental status, abdominal pain women, abdominal pain men, vaginal bleeding, weakness, fever, dyspnea, syncope, headache, dizziness, GI bleed, back pain, seizure, CVA, palpatations, mental health, musculoskeletal)? @ -Differential Musculoskeletal Muscular strain, contusion, ligament sprain, fracture, arthritis, septic arthritis, bursitis, cellulitis, muscle spasm, nerve compression, DVT, arterial occlusion, herpes zoster, electrolyte abnormality, tumor.... This is not meant to be in all inclusive list EKG interpreted by me (3pts min.). @ -None done X-rays interpreted by me (1pt min.). @ -None done CT interpreted by me (1pt min.). @ -None done U/S interpreted by me (1pt. min.). @ -Ultrasound right lower extremity venous Doppler report per radiologist not interpreted by me no evidence of DVT, popliteal fossa right Woods's cyst identified. What testing was considered but not performed or refused? (CT, X-rays, U/S, labs)? Why? @ -None What meds were considered but not given or refused? Why? @ -Analgesics offered and declined Did you discuss the management of the patient with other professionals (professionals i.e. , PA, SALES DEVELOPMENT COORDINATOR, lab, RT, psych nurse, hospital social worker, knife grinder, teacher, correctional officer, case planner)? Give summary @ -No Was smoking cessation discussed for >3mins.? @ -No Was critical care preformed (if so, how long)? @ -No Were there social determinants of health that impacted care today? How? (Homelessness, low income, unemployed, alcoholism, drug addiction, transportation, low edu. Level, literacy, decrease access to med. care, custodial, rehab)? @ -No Was there de-escalation of care discussed even if they declined (Discuss DNR or withdrawal of care, Hospice)? DNR status @ -No What co-morbidities impacted this encounter? (DM, HTN, Smoking, COPD, CAD, Cancer, CVA, ARF, Chemo, Hep., AIDS, mental health diagnosis, sleep apnea, morbid obesity)? @ -Previous thrombosis sister Was patient admitted / discharged? Hospital course, mention meds given and route, prescriptions, significant lab abnormalities, going to OR and other pertinent info. @ -62-year-old female presenting to the emergency room with concerns of posterior left knee pain with increased swelling to the right lower ex tremity. She denies any range of motion impairment, changes and chronic numbness/tingling or trauma. Low probability for DVT however will proceed with ultrasound Doppler of the lower extremity due to patient's high concern. Analgesics offered and declined. No laboratory studies. Ultrasound negative for DVT, Woods's cyst identified on ultrasound. Patient's post advised of results. Education regarding Woods's cyst provided. Questions and concerns answered. Return parameters to the emergency room discussed. Will discharge home in stable condition with symptomatic management of Woods's cyst to right knee advising follow-up with primary care provider. Undiagnosed new problem with uncertain prognosis? @ -No Drug Therapy requiring intensive monitoring for toxicity (Heparin, Nitro, Insulin, Cardizem)? @ -No Were any procedures done? @ -No Diagnosis/symptom? @ -Woods's cyst, unruptured, right knee Acute, or Chronic, or Acute on Chronic? @ -Acute on chronic Uncomplicated (without systemic symptoms) or Complicated (systemic symptoms)? @ -Uncomplicated Side effects of treatment? @ -No Exacerbation, Progression, or Severe Exacerbation? @ -No Poses a threat to life or bodily function? How? (Chest pain, [place], [place], pneumonia, PE, COPD, DKA, ARF, appy, cholecystitis, CVA, Diverticulitis, Homicidal, Suicidal, threat to staff... and all critical care pts) @ -No Case discussed with Dr. Castellano - Radiology Data Radiology results: report reviewed, image reviewed Disposition Clinical Impression: Woods's cyst, unruptured Disposition: HOME SELF-CARE Condition: Stable Instructions (If sedation given, give patient instructions): Woods Cyst (ED) Additional Instructions: Continue to utilize Voltaren topical gel as needed for pain. Follow-up with your primary care provider. Please return to the Emergency Department if symptoms worsen or any other concerns. Is patient prescribed a controlled substance at d/c from ED?: No Referrals: Paris Simpson MD [Primary Care Provider] - 1-2 days Time of Disposition: 15:16
--- NOTE | 2022-11-07 14:49 | US ---
EXAMINATION TYPE: US venous doppler duplex LE RT DATE OF EXAM: 11/07/2022 2:35 PM COMPARISON: Bilateral lower extremity venous ultrasound 06/25/2021 CLINICAL INDICATION: Female, 62 years old with history of swelling; Pain SIDE PERFORMED: Right TECHNIQUE: The lower extremity deep venous system is examined utilizing real time linear array sonog eileen with graded compression, doppler sonography and color-flow sonography. VESSELS IMAGED: Common Femoral Vein Deep Femoral Vein Greater Saphenous Vein * Femoral Vein Popliteal Vein Small Saphenous Vein * Proximal Calf Veins (* superficial vessels) Grayscale, color doppler, spectral doppler imaging performed of the deep veins of the right lower ext remity. There is normal flow, compressibility, vascular waveforms. Right Leg: Negative for DVT complex area behind right knee 6.0 x 2.0 x 2.3 cm IMPRESSION: 1. No evidence for deep venous thrombosis of the right lower extremity. 2. Complex right popliteal fossa fluid collection which probably represents a Woods's cyst complicate d by hemorrhage.
[2022-11-07 15:41] VITALS: BP 125/93; PULSE 88; TEMP 97.6
== END 2022-11-07 15:41 | disposition home or self-care (01) ==
LOC: EC 13:34
DX: M71.21 Synovial cyst of popliteal space [Baker], right knee (principal); I10 Essential (primary) hypertension; E78.5 Hyperlipidemia, unspecified; M19.90 Unspecified osteoarthritis, unspecified site; Z79.01 Long term (current) use of anticoagulants; Z79.82 Long term (current) use of aspirin; Z79.899 Other long term (current) drug therapy; Z86.711 Personal history of pulmonary embolism; Z87.891 Personal history of nicotine dependence
CPT/HCPCS: 99284

== ENCOUNTER 2023-07-13 18:31 | Observation (INO) | payer MEDICARE ==
[2023-07-13 19:30] LABS: Basophils % (A) 1 %; Eosinophils # (A) 0.1 k/uL (0-0.7); Eosinophils % (A) 3 %; HCT 34.4 % (34.0-46.0); Lymphocytes # (A) 0.7 k/uL (1.0-4.8); Lymphocytes % (A) 13 %; MCH 31.7 pg (25.0-35.0); MCHC 34.7 g/dL (31.0-37.0); MCV 91.4 fL (80.0-100.0); Mean Platelet Volume 7.4; Monocytes # (A) 0.4 k/uL (0-1.0); Monocytes % (A) 7 %; Neutrophils % (A) 75 %; Platelet Count 236 k/uL (150-450); RBC 3.77 m/uL (3.80-5.40); RDW 14.7 % (11.5-15.5); WBC 5.4 k/uL (3.8-10.6)
--- NOTE | 2023-07-13 19:59 | XR ---
EXAMINATION TYPE: XR chest 2V DATE OF EXAM: 07/13/2023 COMPARISON: 08/07/2021 INDICATION: Chest pain short of breath TECHNIQUE: Frontal and lateral views of the chest are obtained. FINDINGS: The heart size is normal. The pulmonary vasculature is normal. The lungs are clear. IMPRESSION: 1. No acute pulmonary process.
[2023-07-13 20:05] LABS: INR 1.1 (<1.2); Partial Thromboplastin Time 26.8 sec (22.0-30.0); Prothrombin Time 11.6 sec (10.0-12.5)
--- NOTE | 2023-07-13 20:12 | ED ---
General Adult HPI - General Chief complaint: Chest Pain Stated complaint: chest pain sob light headed Time Seen by Provider: 07/13/23 20:04 Source: patient, RN notes reviewed, old records reviewed Mode of arrival: ambulatory Limitations: no limitations - History of Present Illness Initial comments: Patient is a pleasant [age]-year-old female presenting to the emergency department with concerns of chest discomfort. Onset of symptoms was today, worse over the past couple hours. Discomfort feels like an ache and is somewhat mild. Discomfort does worsen with exertion. Patient has some mild associated dyspnea. No nausea. No diaphoresis. Patient does have history of similar symptoms previously associated with the stent. - Related Data Home Medications Medication Instructions Recorded Confirmed Aspirin 81 mg PO QAM 06/25/21 06/22/22 Atorvastatin [Lipitor] 80 mg PO DAILY 06/25/21 06/22/22 Metoprolol Succinate [Toprol XL] 50 mg PO HS 06/25/21 06/22/22 Apixaban [Eliquis] 5 mg PO BID 08/06/21 06/22/22 Ascorbic Acid [Vitamin C] 500 mg PO DAILY 08/06/21 06/22/22 allopurinoL [Zyloprim] 100 mg PO DAILY 01/31/22 06/22/22 Calcium Carbonate [Calcium] 600 mg PO DAILY 06/22/22 06/22/22 Chlorthalidone [Hygroton] 25 mg PO DAILY 06/22/22 06/22/22 Ferrous Sulfate [Feosol] 325 mg PO DAILY 06/22/22 06/22/22 Gabapentin 900 mg PO TID 06/22/22 06/22/22 Multivit-Min/Iron/Folic/Lutein 1 tab PO DAILY 06/22/22 06/22/22 [Centrum Silver Women Tablet] lisinopriL 40 mg PO DAILY 06/22/22 06/22/22 Previous Rx's Medication Instructions Recorded predniSONE 10 mg PO DIRECTED #20 tab 09/24/22 Allergies Allergy/AdvReac Type Severity Reaction Status Date / Time No Known Allergies Allergy Verified 07/13/23 18:57 Review of Systems ROS Statement: Those systems with pertinent positive or pertinent negative responses have been documented in the HPI. ROS Other: All systems not noted in ROS Statement are negative. Constitutional: Denies: fever Eyes: Denies: eye pain ENT: Denies: ear pain Respiratory: Reports: as per HPI. 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 HX PE 06/24/21 History of Any Multi-Drug Resistant Organisms: None Reported Past Surgical History: Heart Catheterization, Heart Catheterization With Stent, Hysterectomy Additional Past Surgical History / Comment(s): Laparoscopy - PCOS, 08/09/09 c olonoscopy with benign polypectomy.04-27-15 heart cath w/stent to lad. D & C Past Anesthesia/Blood Transfusion Reactions: Motion Sickness Additional Past Anesthesia/Blood Transfusion Reaction / Comment(s): Pt states she has difficulty awakening from general anesthesia- slow to wake. She was in ICU post op because of this. Date of Last Stent Placement:: 04/27/15 Past Psychological History: No Psychological Hx Reported Smoking Status: Former smoker Past Alcohol Use History: None Reported Past Drug Use History: None Reported - Past Family History Father Family Medical History: Myocardial Infarction ([place]) Additional Family Medical History / Comment(s): Father in his early 30's of a [place]. Sister(s) Family Medical History: Myocardial Infarction ([place]) Additional Family Medical History / Comment(s): Sister at age 32yrs of a [place]. Mother Family Medical History: No Reported History Additional Family Medical History / Comment(s): Mother is alive and is 80yrs old -she is healthy. General Exam Limitations: no limitations General appearance: alert, in no apparent distress Head exam: Present: normocephalic Eye exam: Present: normal appearance Neck exam: Present: normal inspection Respiratory exam: Present: normal lung sounds bilaterally, chest wall tenderness (Mild right-sided however patient states this is chronic from arthritis) Cardiovascular Exam: Present: regular rate, normal rhythm Expanded Peripheral pulses: 2+: Radial (R), Radial (L), Posterior Tibialis (R), Posterior Tibialis (L) GI/Abdominal exam: Present: soft. Absent: tenderness Extremities exam: Present: normal inspection. Absent: pedal edema, calf tenderness Neurological exam: Present: alert Psychiatric exam: Present: normal affect, normal mood Skin exam: Present: normal color Course Vital Signs 07/13/23 18:55 Temperature 98 F Pulse Rate 86 Respiratory 18 Rate Blood Pressure 150/78 O2 Sat by Pulse 98 Oximetry EKG Findings - EKG Results: EKG: interpreted by KEAGAND (Septal Q waves. Low voltage precordial leads), sinus rhythm, normal axis, normal ST/T Medical Decision Making - Medical Decision Making Was pt. sent in by a medical professional or institution (, PA, PROGRAM DIRECTOR/TRAFFIC DIRECTOR, urgent care, hospital, or half-way...) When possible be specific @ -No Did you speak to anyone other than the patient for history (EMS, parent, family, police, friend...)? What history was obtained from this source @ -Family is present and helps provide history including his cardiac stent Did you review nursing and triage notes (agree or disagree)? Why? @ -I reviewed and agree with nursing and triage notes Were old charts reviewed (outside hosp., previous admission, EMS record, old EKG, old radiological studies, urgent care reports/EKG's, half-way records)? Report findings @ -Previous chest x-ray reviewed Differential Diagnosis (chest pain, altered mental status, abdominal pain women, abdominal pain men, vaginal bleeding, weakness, fever, dyspnea, syncope, headache, dizziness, GI bleed, back pain, seizure, CVA, palpatations, mental health, musculoskeletal)? @ -Differential Chest Pain: Stable Angina, Unstable Angina, STEMI, NSTEMI Aortic Dissection, Pneumothorax, Musculoskeletal, Esophageal Spasm GERD, Cholecystitis, Pancreatitis, Zoster, this is not meant to be an all-inclusive list. EKG interpreted by me (3pts min.). @ -As above X-rays interpreted by me (1pt min.). @ -Chest x-ray shows no acute process CT interpreted by me (1pt min.). @ -None done U/S interpreted by me (1pt. min.). @ -None done What testing was considered but not performed or refused? (CT, X-rays, U/S, labs)? Why? @ -None What meds were considered but not given or refused? Why? @ -None Did you discuss the management of the patient with other professionals (professionals i.e. , KIRSTY, PROGRAM DIRECTOR/TRAFFIC DIRECTOR, lab, RT, psych nurse, social work supervisor, soa integration developer, teacher, telecommunications officer, embedded case manager)? Give summary @ -Case was discussed with Dr. Simpson who will admit his patient Was smoking cessation discussed for >3mins.? @ -No Was critical care preformed (if so, how long)? @ -No Were there social determinants of health that impacted care today? How? (Homelessness, low income, unemployed, alcoholism, drug addiction, transportation, low edu. Level, literacy, decrease access to med. care, nursing home, rehab)? @ -No Was there de-escalation of care discussed even if they declined (Discuss DNR or withdrawal of care, Hospice)? DNR status @ -No What co-morbidities impacted this encounter? (DM, HTN, Smoking, COPD, CAD, Ca ncer, CVA, ARF, Chemo, Hep., AIDS, mental health diagnosis, sleep apnea, morbid obesity)? @ -None Was patient admitted / discharged? Hospital course, mention meds given and route, prescriptions, significant lab abnormalities, going to OR and other pertinent info. @ -Patient family made aware of results and plan. Patient will be admitted. Admission orders written. Cardiology will be placed on consult. Undiagnosed new problem with uncertain prognosis? @ -No Drug Therapy requiring intensive monitoring for toxicity (Heparin, Nitro, Insulin, Cardizem)? @ -No Were any procedures done? @ -No Diagnosis/symptom? @ -Chest pain Acute, or Chronic, or Acute on Chronic? @ -Acute Uncomplicated (without systemic symptoms) or Complicated (systemic symptoms)? @ -default Side effects of treatment? @ -No Exacerbation, Progression, or Severe Exacerbation? @ -No Poses a threat to life or bodily function? How? (Chest pain, [place], [place], pneumonia, PE, COPD, DKA, ARF, appy, cholecystitis, CVA, Diverticulitis, Homicidal, Suicidal, threat to staff... and all critical care pts) @ -No - Lab Data Result diagrams: 07/13/23 19:24 Lab Results 07/13/23 07/13/23 07/13/23 Range/Units 19:24 19:24 19:24 WBC 5.4 (3.8-10.6) k/uL RBC 3.77 L (3.80-5.40) m/uL Hgb 12.0 (11.4-16.0) gm/dL Hct 34.4 (34.0-46.0) % MCV 91.4 (80.0-100.0) fL MCH 31.7 (25.0-35.0) pg MCHC 34.7 (31.0-37.0) g/dL RDW 14.7 (11.5-15.5) % Plt Count 236 (150-450) k/uL MPV 7.4 Neutrophils % 75 % Lymphocytes % 13 % Monocytes % 7 % Eosinophils % 3 % Basophils % 1 % Neutrophils # 4.0 (1.3-7.7) k/uL Lymphocytes # 0.7 L (1.0-4.8) k/uL Monocytes # 0.4 (0-1.0) k/uL Eosinophils # 0.1 (0-0.7) k/uL Basophils # 0.0 (0-0.2) k/uL PT 11.6 (10.0-12.5) sec INR 1.1 (<1.2) APTT 26.8 (22.0-30.0) sec Troponin I <0.012 (0.000-0.034) ng/mL Disposition Clinical Impression: Chest pain Disposition: ADMITTED IP TO THIS HOSP Is patient prescribed a controlled substance at d/c from ED?: No Referrals: Paris Simpson MD [Primary Care Provider] - 1-2 days Time of Disposition: 20:13
[2023-07-13] MEDS ORDERED: NITROGLYCERIN SL TABS 0.4 MG TAB SUBLINGUAL PRN (20:14)
[2023-07-13] MEDS ORDERED: ASPIRIN 81 MG PO STA (20:14)
[2023-07-13 20:15] LABS: ALT 89 U/L (4-34); AST 76 U/L (14-36); African American GFR (CKD) >90 (>60 ml/min/1.73 sqM); Albumin 3.5 g/dL (3.5-5.0); Alkaline Phosphatase 85 U/L (38-126); Anion Gap 9 mmol/L; Blood Urea Nitrogen 14 mg/dL (7-17); Calcium 8.8 mg/dL (8.4-10.2); Carbon Dioxide 30 mmol/L (22-30); Chloride 96 mmol/L (98-107); Glucose 206 mg/dL (74-99); Magnesium 1.5 mg/dL (1.6-2.3); Non-African American GFR(CKD) >90 (>60 ml/min/1.73 sqM); Potassium 2.8 mmol/L (3.5-5.1); Sodium 135 mmol/L (137-145); Total Bilirubin 0.6 mg/dL (0.2-1.3); Total Protein 6.8 g/dL (6.3-8.2)
[2023-07-13] MEDS ORDERED: Potassium Replacement Protocol 1 EACH MISC MISCELLANE PRN (20:51)
[2023-07-13] MEDS ORDERED: MAGNESIUM OXIDE 400 MG TAB PO STA (20:51)
[2023-07-13] MEDS: POTASSIUM CHLORIDE ER 20 MEQ TAB.ER PO SCH ×2 (20:58→23:27)
[2023-07-13] MEDS: NITROGLYCERIN OINT 1 INCH/GM PACKET TOPICAL SCH (21:21)
[2023-07-14] MEDS: NITROGLYCERIN OINT 1 INCH/GM PACKET TOPICAL SCH ×5 (01:49→23:18)
[2023-07-14] MEDS: POTASSIUM CHLORIDE ER 20 MEQ TAB.ER PO SCH (01:49)
[2023-07-14] MEDS ORDERED: ASPIRIN 325 MG TAB PO SCH (09:00)
--- NOTE | 2023-07-14 11:35 | P.CRDCN ---
History of Present Illness Consult date: 07/14/23 Chief complaint: Chest discomfort History of present illness: The patient is a pleasant 62-year-old female patient with following the office on regular basis with a past medical history significant for coronary artery disease and known chronic total occlusion of the LAD as well as hypertension and dyslipidemia and history of pulmonary embolism currently she is maintaining on oral anti-coag patient presented to the emergency department complaining of chest discomfort. 3 weeks ago she underwent vagina surgery for recently diagnosed with cancer. Anticoagulation was interrupted and she was advised to be bridged with Lovenox and she did that. She presented to the emergency department was 24 hours chest discomfort. She described the discomfort as a sharp kind of discomfort above the right side of the chest was no radiation to the arms or neck or shoulders or back and no associated symptoms with discomfort is extremely sharp and seems to be pleuritic related to taking a deep breath. Also related to cough. Currently the pain has improved significantly. No shortness of breath and no dizziness or lightheadedness and a feeling of heart racing or fluttering and no presyncope or syncope. She is back on oral anticoagulation has been compliant with the EKG showed sinus mechanism was nonspecific changes and Q-wave in V1 and V2 and low voltage QRS be the chest x- ray did not show any acute abnormalities. The examination is remarkable for stable vital signs. No rash on the skin noted. She has a regular rate and rhythm with distant heart sounds and clear breathing sounds bilaterally and no lower extremities edema noted Assessment Chest discomfort appears to be atypical versus pleuritic Coronary artery disease as described above Presenting diagnosis of anginal cancer History of pulmonary embolism Hypertension and dyslipidemia Plan Continue oral anticoagulation Obtain d-dimer If the d-dimer is abnormal consider getting a CTA of the chest Obtain an echocardiogram was Doppler Further recommendation to follow Past Medical History Past Medical History: Cancer, Hyperlipidemia, Hypertension, Pulmonary Embolus ([place]) Additional Past Medical History / Comment(s): small internal hemorrhoid, generalized arthiritis, 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 HX PE 06/24/21 History of Any Multi-Drug Resistant Organisms: None Reported Past Surgical History: Heart Catheterization, Heart Catheterization With Stent, Hysterectomy Additional Past Surgical History / Comment(s): Laparoscopy - PCOS, 08/09/09 colonoscopy with benign polypectomy.04-27-15 heart cath w/stent to lad. D & C Past Anesthesia/Blood Transfusion Reactions: Motion Sickness Additional Past Anesthesia/Blood Transfusion Reaction / Comment(s): Pt states she has difficulty awakening from general anesthesia- slow to wake. She was in ICU post op because of this. Date of Last Stent Placement:: 04/27/15 Past Psychological History: No Psychological Hx Reported Smoking Status: Former smoker Past Alcohol Use History: None Reported Past Drug Use History: None Reported - Past Family History Father Family Medical History: Myocardial Infarction ([place]) Additional Family Medical History / Comment(s): Father in his early 30's of a [place]. Sister(s) Family Medical History: Myocardial Infarction ([place]) Additional Family Medical History / Comment(s): Sister at age 32yrs of a [place]. Mother Family Medical History: No Reported History Additional Family Medical History / Comment(s): Mother is alive and is 80yrs old -she is healthy. Medications and Allergies Home Medications Medication Instructions Recorded Confirmed Type Atorvastatin [Lipitor] 80 mg PO DAILY 06/25/21 07/13/23 History Metoprolol Succinate [Toprol XL] 50 mg PO BID 06/25/21 07/13/23 History Apixaban [Eliquis] 5 mg PO BID 08/06/21 07/13/23 History Ascorbic Acid [Vitamin C] 1,000 mg PO DAILY 08/06/21 07/13/23 History allopurinoL [Zyloprim] 100 mg PO DAILY 01/31/22 07/13/23 History Calcium Carbonate [Calcium] 600 mg PO DAILY 06/22/22 07/13/23 History Chlorthalidone [Hygroton] 25 mg PO DAILY 06/22/22 07/13/23 History Ferrous Sulfate [Feosol] 325 mg PO DAILY 06/22/22 07/13/23 History Gabapentin 900 mg PO TID 06/22/22 07/13/23 History Cholecalciferol [Vitamin D3 (125 125 mcg PO DAILY 07/13/23 07/13/23 History Mcg = 5000 Iu)] Dulaglutide [Trulicity] 3 mg SQ REEDER 07/13/23 07/13/23 History Dulaglutide [Trulicity] 4.5 mg SQ DIRECTED 07/13/23 07/13/23 History Ibuprofen [Motrin] 600 mg PO Q6H PRN 07/13/23 07/13/23 History Potassium Gluconate 99 mg PO DAILY 07/13/23 07/13/23 History Allergies Allergy/AdvReac Type Severity Reaction Status Date / Time No Known Allergies Allergy Verified 07/13/23 20:45 Physical Exam Vitals: Vital Signs Temp Pulse Resp BP Pulse Ox 07/14/23 09:17 77 18 124/90 98 07/14/23 07:45 64 18 134/85 99 07/14/23 07:00 71 18 128/70 96 07/14/23 06:00 68 18 116/63 96 07/14/23 05:49 70 18 116/63 95 07/14/23 03:00 68 18 139/77 96 07/14/23 02:00 68 18 140/74 97 07/14/23 00:00 71 17 130/71 96 07/13/23 22:00 82 13 127/65 91 L 07/13/23 21:00 73 25 H 144/79 95 07/13/23 20:59 29 H 07/13/23 18:55 98 F 86 18 150/78 98 Intake and Output 07/13/23 07/14/23 07/14/23 22:59 06:59 14:59 Other: Weight 113.398 kg Results 07/13/23 19:24 07/13/23 19:24 Cardiac Enzymes 07/13/23 07/13/23 07/13/23 Range/Units 19:24 19:24 22:47 AST 76 H (14-36) U/L Troponin I <0.012 <0.012 (0.000-0.034) ng/mL 07/14/23 Range/Units 01:37 AST (14-36) U/L Troponin I <0.012 (0.000-0.034) ng/mL Coagulation 07/13/23 Range/Units 19:24 PT 11.6 (10.0-12.5) sec APTT 26.8 (22.0-30.0) sec CBC 07/13/23 Range/Units 19:24 WBC 5.4 (3.8-10.6) k/uL RBC 3.77 L (3.80-5.40) m/uL Hgb 12.0 (11.4-16.0) gm/dL Hct 34.4 (34.0-46.0) % Plt Count 236 (150-450) k/uL Comprehensive Metabolic Panel 07/13/23 Range/Units 19:24 Sodium 135 L (137-145) mmol/L Potassium 2.8 L (3.5-5.1) mmol/L Chloride 96 L (98-107) mmol/L Carbon Dioxide 30 (22-30) mmol/L BUN 14 (7-17) mg/dL Creatinine 0.65 (0.52-1.04) mg/dL Glucose 206 H (74-99) mg/dL Calcium 8.8 (8.4-10.2) mg/dL AST 76 H (14-36) U/L ALT 89 H (4-34) U/L Alkaline Phosphatase 85 (38-126) U/L Total Protein 6.8 (6.3-8.2) g/dL Albumin 3.5 (3.5-5.0) g/dL Current Medications Generic Name Dose Route Start Last Admin Trade Name Freq PRN Reason Stop Dose Admin Aspirin 325 mg 07/14/23 09:00 07/14/23 09:16 Aspirin 325 Mg Tab PO 325 mg DAILY MONICA Administration Miscellaneous Information 1 each 07/13/23 20:51 Potassium Replacement Protocol 1 Each Misc MISCELLANE DAILY PRN Per Protocol Protocol Nitroglycerin 0.4 mg 07/13/23 20:14 Nitroglycerin Sl Tabs 0.4 Mg Tab SUBLINGUAL Q5M PRN Chest Pain Nitroglycerin 1 inch 07/13/23 20:15 07/14/23 05:48 Nitroglycerin Oint 1 Inch/Gm Packet TOPICAL 1 inch Q6HR MONICA Administration Intake and Output 07/13/23 07/14/23 07/14/23 22:59 06:59 14:59 Other: Weight 113.398 kg 07/13/23 19:24 07/13/23 19:24
[2023-07-14] MEDS ORDERED: CHLORTHALIDONE 25 MG TAB PO SCH (11:45)
[2023-07-14] MEDS ORDERED: POTASSIUM CHLORIDE ER 20 MEQ TAB.ER PO STA (11:49)
[2023-07-14] MEDS: MORPHINE SULFATE 2 MG/ML SYRINGE IVP PRN ×2 (12:18→19:04)
[2023-07-14] MEDS: MAGNESIUM SULFATE-D5W PMX 1 GM in DEXTROSE/WATER 1 100ML.BAG IVPB SCH ×2 (12:18→13:12)
[2023-07-14] MEDS: GABAPENTIN 300 MG CAP PO SCH ×3 (13:08→23:18)
--- NOTE | 2023-07-14 13:13 | P.HPIM ---
History of Present Illness H&P Date: 07/14/23 Chief Complaint: chest pain HISTORY OF PRESENT ILLNESS This is a 62-year-old female patient with past medical history of endometrial cancer status post hysterectomy, coronary artery disease with previous stent placement, degenerative joint disease, bilateral pulmonary embolism diagnosed in May 2021 on eliquis, morbid obesity with BMI of 40, hypertension, hyperlipidemia, gout, generalized osteoarthritis. last Echocardiogram revealed moderate concentric LVH, EF of 55-60%, right ventricle is normal in size. No evidence of pulmonary hypertension and right ventricular systolic pressure was normal at less than 35 mmHg, patient presented to the ER at [facility] with left sided chest pain similar to her pain that she has had prior to her Stent,she described it as a sharp pain in the right chest radiates to the back non exertional 12 Lead EKG did not show any evidence of acute ST elevation or depression and cardiac enzymes were negative , labs showed significant hypokalemia 2.8 and hyponatremia 135 along with hypomagnesemia 1.5 started on replacements and because of the presentation and her history she was admitted to the hospital for evaluation by cardiology REVIEW OF SYSTEMS Constitutional: No fever, no chills, no night sweats. No weight change. Reports weakness, Reports fatigue or lethargy. No daytime sleepiness. HEENT: No headache. No blurred vision or double vision, no loss of vision. No loss of Hearing, no ringing in the ears, no dizziness. No nasal drainage or congestion. No epistaxis. No sore throat. Lungs: Reports shortness of breath, cough, no sputum production. No wheezing. Cardiovascular: positive for chest pain, no lower extremity edema. No palpitations. No paroxysmal nocturnal dyspnea. No orthopnea. No lightheadedness or dizziness. No syncopal episodes.positive for VALENCIA Abdominal: No abdominal pain. No nausea, vomiting. No diarrhea. No constipation. No bloody or tarry stools. No loss of appetite. Genitourinary: No dysuria, increased frequency, urgency. No urinary retention. Musculoskeletal: No myalgias. No muscle weakness, no gait dysfunction, no frequent falls. No back pain. No neck pain. Integumentary: No wounds, no lesions. No rash or pruritus. No unusual bruising. No change in hair or nails. Neurologic: No aphasia. No facial droop. No change in mentation. No head injury. No headache. No paralysis. No paresthesia. Psychiatric: No depression. No anxiety. No mood swings. Endocrine: No abnormal blood sugars. No weight change. No excessive sweating or thirst. No cold intolerance. MEDICAL HISTORY Endometrial cancer status post hysterectomy Coronary artery disease with previous stent placement Degenerative joint disease Bilateral pulmonary embolism diagnosed May 2021 Morbid obesity with BMI of 40 Hypertension Hyperlipidemia Chronic gout Generalized osteoarthritis Vitamin D deficiency SURGICAL HISTORY Cardiac catheterization and PCI LAD 03/2015 Total abdominal hysterectomy and bilateral salpingectomy oophorectomy 06/02/2021 Colonoscopy with benign polypectomy SOCIAL HISTORY Patient was a smoker and quit in July 1999. She smoked 1 pack per day for 27 years. No alcohol abuse, no marijuana or illicit drug use. FAMILY HISTORY Father in his early 30s from myocardial infarction. Mother is alive at age 84 with no major medical problems. Patient has one brother age 57 with coronary artery disease status post PCI and stents. Patient has one sister that is at age 30 from myocardial infarction she has another sister alive at age 65 of coronary artery disease and CABG the third one with no major medical problems. She has one son had a heart attack and stent placement.. PHYSICAL EXAMINATION Gen: This is a 62-year-old female appears to be comfortable and in no acute distress. HEENT: Head is atraumatic, normocephalic. Pupils equal, round, reactive to light and accommodations, extra occular muscle movement were intact Sclerae is anicteric, mucous membranes of the mouth are somewhat dry. NECK: Supple. No JVD. No lymphadenopathy. No thyromegaly. LUNGS: Clear to auscultation. No wheezes or rhonchi. No intercostal retractions. HEART: First heart sound is depressed , second heart sound is normal, there is BERLIN 2/6 located at the left sternal border. ABDOMEN: Soft, non tender, non distended positive bowel sounds EXTREMITIES: No edema, no calf tenderness DP +2 bilaterally. NEUROLOGICAL: Patient is awake, alert and oriented x3. Cranial nerves 2 through 12 are grossly intact, CN II-XII are grossly intact , muscle power 5/5 in bilateral upper and lower extremities, Deep tendon reflexes are normal ASSESSMENT AND PLAN 1. Chest pain pleuritic in a patient with prior history of CAD, she has angelina ruled out for ACS, we will admit, cardiac enzymes were negative , cardiology consult for MPI in AM, we will continue with Metoprolol 50 mg po bid and Atorvastatin 80 mg po daily along with ASA 81 mg po daily 2. Endometrial adenocarcinoma status post MARIANO plus BSO 06/02/2021 psot chemotherapy an she just had surgery and was seen by her [employer] [facility], she will be started on Immunotherapy 3. Hypokalemia. we will replace, discontinue Chlorthalidone 4. Hyponatremia and hypomagnesemia. we will give magnesium sulfate 2 gr IVPB x1 . 5. Pulmonary embolism diagnosed May 2021. Continue eliquis 5 mg po bid 6. Hypertension and hypertenesive cardiovascular disease. Continue Metoprolol 50 mg po bid and monitor BP very closely 7. Hyperlipidemia. Continue atorvastatin 80 mg daily. 8. Diabetes Mellitus type 2 . we will continue with trulicity 3 mg Sc qweek and we will start SSI, BGM bid 9. Diabetic and chmotherapy -induced Polyneuropathy. we will continue with gabapentin 900 mg po tid. 10. Gout . we will continue with Allopurinol 100 mg po daily 10. Gastroesophageal reflux disease. Continue Protonix 40 mg po daily 11. DVT prophylaxis. we will continue with Eliquis 5 mg po bid 12. Admits to inpatients , estimated length of stay 2 midnights Past Medical History Past Medical History: Cancer, Hyperlipidemia, Hypertension, Pulmonary Embolus (PE) Additional Past Medical History / Comment(s): small internal hemorrhoid, generalized arthiritis, 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 HX PE 06/24/21 History of Any Multi-Drug Resistant Organisms: None Reported Past Surgical History: Heart Catheterization, Heart Catheterization With Stent, Hysterectomy Additional Past Surgical History / Comment(s): Laparoscopy - PCOS, 08/09/09 colo noscopy with benign polypectomy.04-27-15 heart cath w/stent to lad. D & C Past Anesthesia/Blood Transfusion Reactions: Motion Sickness Additional Past Anesthesia/Blood Transfusion Reaction / Comment(s): Pt states she has difficulty awakening from general anesthesia- slow to wake. She was in ICU post op because of this. Date of Last Stent Placement:: 04/27/15 Past Psychological History: No Psychological Hx Reported Smoking Status: Former smoker Past Alcohol Use History: None Reported Past Drug Use History: None Reported - Past Family History Father Family Medical History: Myocardial Infarction (PA) Additional Family Medical History / Comment(s): Father in his early 30's of a PA. Sister(s) Family Medical History: Myocardial Infarction (PA) Additional Family Medical History / Comment(s): Sister at age 32yrs of a PA. Mother Family Medical History: No Reported History Additional Family Medical History / Comment(s): Mother is alive and is 80yrs old -she is healthy. Medications and Allergies Home Medications Medication Instructions Recorded Confirmed Type Atorvastatin [Lipitor] 80 mg PO DAILY 06/25/21 07/13/23 History Metoprolol Succinate [Toprol XL] 50 mg PO BID 06/25/21 07/13/23 History Apixaban [Eliquis] 5 mg PO BID 08/06/21 07/13/23 History Ascorbic Acid [Vitamin C] 1,000 mg PO DAILY 08/06/21 07/13/23 History allopurinoL [Zyloprim] 100 mg PO DAILY 01/31/22 07/13/23 History Calcium Carbonate [Calcium] 600 mg PO DAILY 06/22/22 07/13/23 History Chlorthalidone [Hygroton] 25 mg PO DAILY 06/22/22 07/13/23 History Ferrous Sulfate [Feosol] 325 mg PO DAILY 06/22/22 07/13/23 History Gabapentin 900 mg PO TID 06/22/22 07/13/23 History Cholecalciferol [Vitamin D3 (125 125 mcg PO DAILY 07/13/23 07/13/23 History Mcg = 5000 Iu)] Dulaglutide [Trulicity] 3 mg SQ REEDER 07/13/23 07/13/23 History Dulaglutide [Trulicity] 4.5 mg SQ DIRECTED 07/13/23 07/13/23 History Ibuprofen [Motrin] 600 mg PO Q6H PRN 07/13/23 07/13/23 History Potassium Gluconate 99 mg PO DAILY 07/13/23 07/13/23 History Allergies Allergy/AdvReac Type Severity Reaction Status Date / Time No Known Allergies Allergy Verified 07/13/23 20:45 Physical Exam Vitals: Vital Signs Temp Pulse Resp BP Pulse Ox 07/14/23 09:17 77 18 124/90 98 07/14/23 07:45 64 18 134/85 99 07/14/23 07:00 71 18 128/70 96 07/14/23 06:00 68 18 116/63 96 07/14/23 05:49 70 18 116/63 95 07/14/23 03:00 68 18 139/77 96 07/14/23 02:00 68 18 140/74 97 07/14/23 00:00 71 17 130/71 96 07/13/23 22:00 82 13 127/65 91 L 07/13/23 21:00 73 25 H 144/79 95 07/13/23 20:59 29 H 07/13/23 18:55 98 F 86 18 150/78 98 Intake and Output 07/13/23 07/14/23 07/14/23 22:59 06:59 14:59 Other: Weight 113.398 kg Results CBC & Chem 7: 07/13/23 19:24 07/13/23 19:24 Labs: Abnormal Lab Results - Last 24 Hours (Table) 07/13/23 07/13/23 Range/Units 19:24 19:24 RBC 3.77 L (3.80-5.40) m/uL Lymphocytes # 0.7 L (1.0-4.8) k/uL Sodium 135 L (137-145) mmol/L Potassium 2.8 L (3.5-5.1) mmol/L Chloride 96 L (98-107) mmol/L Glucose 206 H (74-99) mg/dL Magnesium 1.5 L (1.6-2.3) mg/dL AST 76 H (14-36) U/L ALT 89 H (4-34) U/L
[2023-07-14] MEDS ORDERED: NON FORMULARY DRUG (Dulaglutide [Trulicity] 1.5 MG/0.5 ML Each) SQ SCH (14:00)
[2023-07-14] MEDS ORDERED: GABAPENTIN 300 MG CAP PO SCH (16:00)
[2023-07-14 19:10] LABS: ALT 99 U/L (4-34); AST 82 U/L (14-36); African American GFR (CKD) >90 (>60 ml/min/1.73 sqM); Albumin 3.7 g/dL (3.5-5.0); Albumin/Globulin Ratio 1.1; Alkaline Phosphatase 97 U/L (38-126); Anion Gap 7 mmol/L; Blood Urea Nitrogen 17 mg/dL (7-17); Calcium 8.8 mg/dL (8.4-10.2); Carbon Dioxide 31 mmol/L (22-30); Chloride 96 mmol/L (98-107); Globulin 3.4 g/dL; Glucose 103 mg/dL (74-99); Non-African American GFR(CKD) >90 (>60 ml/min/1.73 sqM); Potassium 3.4 mmol/L (3.5-5.1); Sodium 134 mmol/L (137-145); Total Bilirubin 0.9 mg/dL (0.2-1.3); Total Protein 7.1 g/dL (6.3-8.2)
[2023-07-14] MEDS: APIXABAN 5 MG TAB PO SCH (20:36)
[2023-07-14] MEDS: METOPROLOL SUCCINATE (ER) 50 MG TAB.ER.24H PO SCH (20:37)
[2023-07-14 23:07] LABS: LDL Cholesterol,Calculated 71.8 mg/dL (0.0-131.0)
[2023-07-15] MEDS: NITROGLYCERIN OINT 1 INCH/GM PACKET TOPICAL SCH (05:11)
[2023-07-15] MEDS ORDERED: PANTOPRAZOLE 40 MG TABLET PO SCH (07:30)
[2023-07-15] MEDS: APIXABAN 5 MG TAB PO SCH (08:10)
[2023-07-15] MEDS: METOPROLOL SUCCINATE (ER) 50 MG TAB.ER.24H PO SCH (08:11)
[2023-07-15] MEDS: GABAPENTIN 300 MG CAP PO SCH ×2 (08:13→16:59)
[2023-07-15] MEDS ORDERED: NON FORMULARY DRUG (Potassium Gluconate [Potassium Gluconate] 99 MG Tablet) PO SCH (09:00)
[2023-07-15] MEDS ORDERED: allopurinoL 100 MG TAB PO SCH (09:00)
[2023-07-15] MEDS ORDERED: FERROUS SULFATE 325 MG TAB PO SCH (09:00)
[2023-07-15] MEDS ORDERED: CHOLECALCIFEROL 125 MCG (5000 IU) TABLET PO SCH (09:00)
[2023-07-15] MEDS ORDERED: CALCIUM CARBONATE 500 MG CHEWABLE PO SCH (09:00)
[2023-07-15] MEDS ORDERED: ATORVASTATIN 80 MG TAB PO SCH (09:00)
[2023-07-15] MEDS ORDERED: ASPIRIN 81 MG PO SCH (09:00)
[2023-07-15] MEDS ORDERED: ASCORBIC ACID 500 MG TAB PO SCH (09:00)
[2023-07-15 10:14] LABS: Basophils % (A) 1 %; Eosinophils # (A) 0.1 k/uL (0-0.7); Eosinophils % (A) 2 %; HCT 35.4 % (34.0-46.0); HGB 11.9 gm/dL (11.4-16.0); Lymphocytes # (A) 0.5 k/uL (1.0-4.8); Lymphocytes % (A) 10 %; MCH 30.9 pg (25.0-35.0); MCHC 33.5 g/dL (31.0-37.0); MCV 92.3 fL (80.0-100.0); Mean Platelet Volume 7.4; Monocytes # (A) 0.4 k/uL (0-1.0); Monocytes % (A) 8 %; Neutrophils # (A) 3.7 k/uL (1.3-7.7); Neutrophils % (A) 77 %; Platelet Count 232 k/uL (150-450); RBC 3.84 m/uL (3.80-5.40); RDW 14.8 % (11.5-15.5); WBC 4.8 k/uL (3.8-10.6)
[2023-07-15 11:00] LABS: ALT 98 U/L (4-34); AST 84 U/L (14-36); African American GFR (CKD) >90 (>60 ml/min/1.73 sqM); Albumin 3.8 g/dL (3.5-5.0); Albumin/Globulin Ratio 1.1; Alkaline Phosphatase 96 U/L (38-126); Anion Gap 9 mmol/L; Blood Urea Nitrogen 17 mg/dL (7-17); Calcium 9.3 mg/dL (8.4-10.2); Carbon Dioxide 29 mmol/L (22-30); Chloride 96 mmol/L (98-107); Globulin 3.6 g/dL; Glucose 103 mg/dL (74-99); Non-African American GFR(CKD) >90 (>60 ml/min/1.73 sqM); Potassium 3.6 mmol/L (3.5-5.1); Sodium 134 mmol/L (137-145); Total Bilirubin 1.3 mg/dL (0.2-1.3); Total Protein 7.4 g/dL (6.3-8.2)
--- NOTE | 2023-07-15 12:38 | P.PN ---
Subjective HISTORY OF PRESENT ILLNESS: The patient is a pleasant 62-year-old female patient with following the office on regular basis with a past medical history significant for coronary artery disease and known chronic total occlusion of the LAD as well as hypertension and dyslipidemia and history of pulmonary embolism currently she is maintaining on oral anti-coag patient presented to the emergency department complaining of mima st discomfort. 3 weeks ago she underwent vagina surgery for recently diagnosed with cancer. Anticoagulation was interrupted and she was advised to be bridged with Lovenox and she did that. She presented to the emergency department was 24 hours chest discomfort. She described the discomfort as a sharp kind of discomfort above the right side of the chest was no radiation to the arms or neck or shoulders or back and no associated symptoms with discomfort is extremely sharp and seems to be pleuritic related to taking a deep breath. Also related to cough. Currently the pain has improved significantly. No shortness of breath and no dizziness or lightheadedness and a feeling of heart racing or fluttering and no presyncope or syncope. She is back on oral anticoagulation has been compliant with the EKG showed sinus mechanism was nonspecific changes and Q-wave in V1 and V2 and low voltage QRS be the chest x-ray did not show any acute abnormalities. The examination is remarkable for stable vital signs. No rash on the skin noted. She has a regular rate and rhythm with distant heart so unds and clear breathing sounds bilaterally and no lower extremities edema noted 07/15/2023 Patient examined this morning in the emergency room. She is sitting up in the chair. Patient denies shortness of breath or cough. She reports right-sided chest discomfort this morning that radiates into her back. Her right-sided chest wall is tender with palpation. Pain is also worse with movement. Vital signs are stable. PHYSICAL EXAM: VITAL SIGNS: Reviewed. GENERAL: Well-developed in no acute distress. NECK: Supple. No JVD or thyromegaly LUNGS: Respirations even and unlabored. Lungs essentially clear to auscultation bilaterally. HEART: Regular rate and rhythm. S1 and S2 heard. EXTREMITIES: Normal range of motion. No clubbing or cyanosis. Peripheral pulses intact. No lower extremity edema ASSESSMENT: Chest pain, noncardiac, troponins negative 3 Coronary artery disease with known chronic total occlusion of LAD Hypertension Hyperlipidemia History of pulmonary embolism PLAN: Continue current cardiac medications Obtain 2-D echo to assess cardiac structure and function If echocardiogram does not reveal any significant abnormalities, the patient may be discharged home today from a cardiac standpoint Nurse practitioner note has been reviewed by physician. Signing provider agrees with the documented findings, assessment, and plan of care. Objective - Vital Signs Vital signs: Vital Signs Temp 98.2 F 07/15/23 06:06 Pulse 73 07/15/23 08:02 Resp 18 07/15/23 08:02 BP 144/74 07/15/23 08:02 Pulse Ox 97 07/15/23 08:02 FiO2 - Labs CBC & Chem 7: 07/15/23 09:34 07/15/23 09:34 Labs: Abnormal Lab Results - Last 24 Hours (Table) 07/14/23 07/15/23 07/15/23 Range/Units 18:27 09:34 09:34 Lymphocytes # 0.5 L (1.0-4.8) k/uL Sodium 134 L 134 L (137-145) mmol/L Potassium 3.4 L (3.5-5.1) mmol/L Chloride 96 L 96 L (98-107) mmol/L Carbon Dioxide 31 H (22-30) mmol/L Glucose 103 H 103 H (74-99) mg/dL AST 82 H 84 H (14-36) U/L ALT 99 H 98 H (4-34) U/L
[2023-07-15 16:48] VITALS: BP 138/84; PULSE 75; RESP 16; TEMP 98
--- NOTE | 2023-07-15 18:01 | P.DS ---
Providers Date of admission: 07/13/23 20:15 Expected date of discharge: 07/15/23 Attending physician: Paris Simpson Consults: 07/13/23 20:14 Consult Physician Urgent Consulting Provider: Jake Koch Consult Reason/Comments: cp Do you want consulting provider notified?: Yes Primary care physician: Paris Simpson Hospital Course: HISTORY OF PRESENT ILLNESS This is a 62-year-old female patient with past medical history of endometrial cancer status post hysterectomy, coronary artery disease with previous stent placement, degenerative joint disease, bilateral pulmonary embolism diagnosed in May 2021 on eliquis, morbid obesity with BMI of 40, hypertension, hyperlipidemia, gout, generalized osteoarthritis. last Echocardiogram revealed moderate concentric LVH, EF of 55-60%, right ventricle is normal in size. No evidence of pulmonary hypertension and right ventricular systolic pressure was normal at less than 35 mmHg, patient presented to the ER at [facility] with left sided chest pain similar to her pain that she has had prior to her Stent,she described it as a sharp pain in the right chest radiates to the back non exertional 12 Lead EKG did not show any evidence of acute ST elevation or depression and cardiac enzymes were negative , labs showed significant hypokalemia 2.8 and hyponatremia 135 along with hypomagnesemia 1.5 started on replacements and because of the presentation and her history she was admitted to the hospital for evaluation by cardiology 07/15: patient is sitting up in her chair in no acute distress, was seen by cardiology, an echcardiogram was done the results still pending at the time of dictation, we will get the patient discharged and she will follow up with them and me as outpatient, she is chest pain free and she is to continue with her medications as before till she is seen in the office ASSESSMENT AND PLAN 1. Chest pain pleuritic in a patient with prior history of CAD, she has angelina ruled out for ACS. 2. Endometrial adenocarcinoma status post MARIANO plus BSO 06/02/2021 psot chemotherapy an she just had surgery and was seen by her [employer] [facility], she will be started on Immunotherapy 3. Hypokalemia. 4. Hyponatremia and hypomagnesemia. 5. Pulmonary embolism diagnosed May 2021. 6. Hypertension and hypertenesive cardiovascular disease. 7. Hyperlipidemia. 8. Diabetes Mellitus type 2 . 9. Diabetic and chmotherapy -induced Polyneuropathy. 10. Gout . 10. Gastroesophageal reflux disease. Patient Condition at Discharge: Stable Plan - Discharge Summary New Discharge Prescriptions: New Aspirin 81 mg PO DAILY tab Continue Ascorbic Acid [Vitamin C] 1,000 mg PO DAILY Apixaban [Eliquis] 5 mg PO BID Calcium Carbonate [Calcium] 600 mg PO DAILY Gabapentin 900 mg PO TID Cholecalciferol [Vitamin D3 (125 Mcg = 5000 Iu)] 125 mcg PO DAILY Ibuprofen [Motrin] 600 mg PO Q6H PRN PRN Reason: Pain Or Fever > 100.5 Atorvastatin [Lipitor] 80 mg PO DAILY Metoprolol Succinate [Toprol XL] 50 mg PO BID allopurinoL [Zyloprim] 100 mg PO DAILY Ferrous Sulfate [Feosol] 325 mg PO DAILY Chlorthalidone [Hygroton] 25 mg PO DAILY Potassium Gluconate 99 mg PO DAILY Dulaglutide [Trulicity] 4.5 mg SQ DIRECTED Dulaglutide [Trulicity] 3 mg SQ REEDER Discharge Medication List Atorvastatin [Lipitor] 80 mg PO DAILY 06/25/21 [History] Metoprolol Succinate [Toprol XL] 50 mg PO BID 06/25/21 [History] Apixaban [Eliquis] 5 mg PO BID 08/06/21 [History] Ascorbic Acid [Vitamin C] 1,000 mg PO DAILY 08/06/21 [History] allopurinoL [Zyloprim] 100 mg PO DAILY 01/31/22 [History] Calcium Carbonate [Calcium] 600 mg PO DAILY 06/22/22 [History] Chlorthalidone [Hygroton] 25 mg PO DAILY 06/22/22 [History] Ferrous Sulfate [Feosol] 325 mg PO DAILY 06/22/22 [History] Gabapentin 900 mg PO TID 06/22/22 [History] Cholecalciferol [Vitamin D3 (125 Mcg = 5000 Iu)] 125 mcg PO DAILY 07/13/23 [History] Dulaglutide [Trulicity] 3 mg SQ REEDER 07/13/23 [History] Dulaglutide [Trulicity] 4.5 mg SQ DIRECTED 07/13/23 [History] Ibuprofen [Motrin] 600 mg PO Q6H PRN 07/13/23 [History] Potassium Gluconate 99 mg PO DAILY 07/13/23 [History] Aspirin 81 mg PO DAILY tab 07/15/23 [Rx] Follow up Appointment(s)/Referral(s): Paris Simpson MD [Primary Care Provider] - 1-2 days Discharge Disposition: HOME SELF-CARE
--- NOTE | 2023-07-16 09:57 | CA ---
Transthoracic Echo Report Name: Jackie Baeza Age: 62 Gender: F : 1960 Exam Date: 07/15/2023 15:39 Exam Location: [facility] Ht (in): 67 Wt (lb): 250 Ordering Physician: Jake Koch MD ([id number]) Attending/Referring Phys: Claim Agent Diogenes Peña Procedure CPT: Indications: CP Cardiac Hx: Technical Quality: Fair Contrast 1: Definity Total Dose (mL): 2 Contrast 2: Total Dose (mL): MEASUREMENTS (Male / Female) Normal Values 2D ECHO LV Diastolic Diameter PLAX 4.6 cm 4.2 - 5.9 / 3.9 - 5.3 cm LV Systolic Diameter PLAX 2.8 cm IVS Diastolic Thickness 1.0 cm 0.6 - 1.0 / 0.6 - 0.9 cm LVPW Diastolic Thickness 1.2 cm 0.6 - 1.0 / 0.6 - 0.9 cm LV Relative Wall Thickness 0.5 RV Internal Dim ED PLAX 3.3 cm LVOT Diameter 2.1 cm Aortic Root Diameter 3.1 cm LA Systolic Diameter LX 3.5 cm 3.0 - 4.0 / 2.7 - 3.8 cm LV Diastolic Volume MOD BP 52.7 cm??? 67 - 155 / 56 - 104 cm??? LV Systolic Volume MOD BP 21.5 cm??? 22 - 58 / 19 - 49 cm??? LV Ejection Fraction MOD BP 59.3 % >= 55 % LV Cardiac Index MOD BP 964.0 cm???/min???m??? LV Diastolic Volume MOD 4C 54.0 cm??? LV Systolic Volume MOD 4C 20.8 cm??? LV Ejection Fraction MOD 4C 61.6 % LV Cardiac Index MOD 4C 1026.2 cm???/min???m??? LV Diastolic Length 4C 7.5 cm LV Systolic Length 4C 6.1 cm LV Diastolic Volume MOD 2C 50.4 cm??? LV Systolic Volume MOD 2C 20.8 cm??? LV Ejection Fraction MOD 2C 58.8 % LV Cardiac Index MOD 2C 913.7 cm???/min???m??? LV Diastolic Length 2C 7.3 cm LV Systolic Length 2C 6.5 cm LA Volume 51.1 cm??? 18 - 58 / 22 - 52 cm??? LA Volume Index 21.6 cm???/m??? 16 - 28 cm???/m??? DOPPLER AV Peak Velocity 153.8 cm/s AV Peak Gradient 9.5 mmHg LVOT Peak Velocity 96.2 cm/s LVOT Peak Gradient 3.7 mmHg LVOT Velocity Time Integral 24.1 cm LVOT Stroke Volume 86.6 cm??? LVOT Stroke Volume Index 38.9 ml/m??? LVOT Cardiac Index 2670.0 cm???/min???m??? AV Area Cont Eq pk 2.2 cm??? MV Peak Velocity 125.3 cm/s MV Peak Gradient 6.3 mmHg MV Mean Velocity 67.9 cm/s MV Mean Gradient 2.3 mmHg MV Velocity Time Integral 40.0 cm Mitral E Point Velocity 127.8 cm/s Mitral A Point Velocity 128.8 cm/s Mitral E to A Ratio 1.0 MV Deceleration Time 216.4 ms MV E' Velocity 9.1 cm/s Mitral E to MV E' Ratio 14.1 TR Peak Velocity 162.0 cm/s TR Peak Gradient 10.5 mmHg Right Ventricular Systolic Press 15.5 mmHg PV Peak Velocity 104.2 cm/s PV Peak Gradient 4.3 mmHg FINDINGS Left Ventricle Normal LV size and wall thickness. Left ventricular ejection fraction is estimated at 60-65 %. Right Ventricle Normal right ventricular size. Right Atrium Normal right atrial size. Left Atrium Normal left atrial size. Mitral Valve Mild posterior mitral annulus calcification.No MR. Aortic Valve Trileaflet aortic valve. No aortic stenosis. No aortic regurgitation. Tricuspid Valve Structurally normal tricuspid valve. Trace TR. Pulmonic Valve Pulmonic valve not well visualized. No pulmonic regurgitation. Pericardium Normal pericardium. Aorta Normal size aortic root. CONCLUSIONS Normal LV size and systolic function. Previewed by: Dr. Rolando Soto MD (Electronically Signed) Final Date: 16 July 2023 09:56
== END 2023-07-15 18:17 | disposition home or self-care (01) ==
LOC: EC 18:31 → 6NMEDSUR 20:15
PROVIDERS: ADMIT Internal Medicine; ATTEND Internal Medicine
DX: R07.89 Other chest pain (principal); R07.81 Pleurodynia; E78.5 Hyperlipidemia, unspecified; I11.9 Hypertensive heart disease without heart failure; I25.10 Atherosclerotic heart disease of native coronary artery without angina pectoris; I25.82 Chronic total occlusion of coronary artery; E87.1 Hypo-osmolality and hyponatremia; E83.42 Hypomagnesemia; E11.42 Type 2 diabetes mellitus with diabetic polyneuropathy; K21.9 Gastro-esophageal reflux disease without esophagitis; M10.9 Gout, unspecified; E87.6 Hypokalemia; E66.01 Morbid (severe) obesity due to excess calories; Z68.41 Body mass index [BMI] 40.0-44.9, adult; Z85.42 Personal history of malignant neoplasm of other parts of uterus; Z86.711 Personal history of pulmonary embolism; Z87.891 Personal history of nicotine dependence; Z95.5 Presence of coronary angioplasty implant and graft; Z79.01 Long term (current) use of anticoagulants; Z79.82 Long term (current) use of aspirin; Z79.85 Long-term (current) use of injectable non-insulin antidiabetic drugs; Z79.899 Other long term (current) drug therapy; Z82.49 Family history of ischemic heart disease and other diseases of the circulatory system
CPT/HCPCS: 96376; 96365; 96366; 96375; 99285; 36415; 93005; 85379; 80061; 80053 ×3; 83735; 84484 ×2; 85025 ×2; 85610; 85730; 71046; G0378 ×3; C8929; J2270; Q9957; J3475; 93306

== ENCOUNTER → 2023-08-06 | Outpatient (CLI) | payer MEDICARE ==
--- NOTE | 2023-08-06 12:45 | CT ---
EXAMINATION TYPE: CT angio chest CT DLP: 1135 mGycm, Automated exposure control for dose reduction was used. DATE OF EXAM: 08/06/2023 12:32 PM COMPARISON: 07/13/2023. CLINICAL INDICATION:Female, 62 years old with history of R07.9 CHEST PAIN; chest pain TECHNIQUE/CONTRAST: CTA scan of the thorax is performed with IV Contrast, patient injected with 100 mL of Isovue 370, MIP images are created and reviewed these are created on a separate workstation.. FINDINGS: Pulmonary Artery: There is no evidence for a filling defect within the pulmonary vasculature to sugge st acute pulmonary embolism. The pulmonary artery is of normal size. Lungs/Pleura: No evidence of focal consolidation, pleural effusion or pneumothorax. Airway: Large airways are patent. Heart: Heart is within normal limits for size. Severe calcifications of the coronary arteries. Vasculature: No evidence of aortic aneurysm. Mediastinum: No gross evidence of adenopathy. Musculoskeletal: Moderate degenerative disc disease changes are present throughout the thoracolumbar spine. Soft Tissues: Unremarkable. Lower neck: Right thyroid gland nodule measuring 27 mm. Upper Abdomen: Low-attenuation to the liver parenchyma. Large gallstones in the gallbladder lumen. IMPRESSION: 1. No evidence of pulmonary embolism. 2. Large gallstones 3. Hepatic steatosis. 4. Right thyroid gland nodule measuring 2.7 mm not already performed complete evaluation of thyroid ultrasound is recommended. Follow up recommendations for incidental pulmonary nodules, if there are any, are per Joby?melva Nagy [employer] or [employer]. [email or web address].org/[email or web address]?lang=us
== END | disposition home or self-care (01) ==
LOC: RADCTMAIN 11:30
PROVIDERS: ATTEND Internal Medicine Interventional Cardiology
DX: K80.20 Calculus of gallbladder without cholecystitis without obstruction (principal); K76.0 Fatty (change of) liver, not elsewhere classified; E04.1 Nontoxic single thyroid nodule; R07.9 Chest pain, unspecified
CPT/HCPCS: 71275; Q9967

== ENCOUNTER → 2023-08-28 | Outpatient (CLI) | payer MEDICARE ==
[2023-08-28 09:03] LABS: Basophils % (A) 1 %; Eosinophils # (A) 0.2 k/uL (0-0.7); Eosinophils % (A) 4 %; HCT 36.5 % (34.0-46.0); HGB 11.9 gm/dL (11.4-16.0); Lymphocytes # (A) 0.6 k/uL (1.0-4.8); Lymphocytes % (A) 17 %; MCHC 32.6 g/dL (31.0-37.0); MCV 92.1 fL (80.0-100.0); Mean Platelet Volume 8.3; Monocytes # (A) 0.3 k/uL (0-1.0); Monocytes % (A) 9 %; Neutrophils # (A) 2.4 k/uL (1.3-7.7); Neutrophils % (A) 66 %; Platelet Count 205 k/uL (150-450); RBC 3.96 m/uL (3.80-5.40); RDW 14.4 % (11.5-15.5); WBC 3.6 k/uL (3.8-10.6)
[2023-08-28 09:29] LABS: ALT 39 U/L (4-34); AST 46 U/L (14-36); African American GFR (CKD) >90 (>60 ml/min/1.73 sqM); Albumin 3.6 g/dL (3.5-5.0); Alkaline Phosphatase 94 U/L (38-126); Anion Gap 6 mmol/L; Blood Urea Nitrogen 12 mg/dL (7-17); Calcium 9.4 mg/dL (8.4-10.2); Carbon Dioxide 25 mmol/L (22-30); Chloride 108 mmol/L (98-107); Glucose 92 mg/dL (74-99); Magnesium 1.9 mg/dL (1.6-2.3); Non-African American GFR(CKD) >90 (>60 ml/min/1.73 sqM); Potassium 4.4 mmol/L (3.5-5.1); Sodium 139 mmol/L (137-145); Total Bilirubin 1.1 mg/dL (0.2-1.3); Total Protein 7.1 g/dL (6.3-8.2); Uric Acid 5.3 mg/dL (3.7-7.4)
[2023-08-28 14:55] LABS: Appearance,Urine Clear (Clear); Bilirubin,Urine Negative (Negative); Blood,Urine Negative (Negative); Color,Urine Colorless; Glucose,Urine (UA) Negative (Negative); Ketones,Urine Negative (Negative); Leukocyte Esterase,Urine Small (Negative); Mucus,Urine Rare /hpf; Nitrite,Urine Negative (Negative); PH, Urine 5.5 (5.0-8.0); Protein,Urine Negative (Negative); RBC,Urine 1 /hpf (0-5); Specific Gravity,Urine 1.013 (1.001-1.035); Squamous Epithelial Cell,Urine 1 /hpf (0-4); Urobilinogen,Urine <2.0 mg/dL (<2.0); WBC,Urine 3 /hpf (0-5)
[2023-08-28 17:14] LABS: Chol/HDL Ratio 2.34 Ratio; LDL Cholesterol,Calculated 47.7 mg/dL (0.0-131.0)
[2023-08-28 18:33] LABS: Microalbumin Creatinine Ratio <14 mg/g Cr (0-30); Urine Creatinine 85.5 mg/dL (28.0-217.0)
--- NOTE | 2023-08-28 21:21 | BD ---
EXAMINATION TYPE: Axial Bone Density DATE OF EXAM: 08/28/2023 CLINICAL HISTORY: 62 years old Female. ICD-10 CODE: C541 MALIGNANT ZEE OF ENDOMETRIUM Height: 66in Weight: 257lb FRAX RISK QUESTIONS: History of Fracture in Adulthood: yes Secondary Osteoporosis: 1. Type 1 Diabetes: yes RISK FACTORS HISTORY OF: MEDICATIONS: EXAM MEASUREMENTS: Bone mineral densitometry was performed using the [employer] System. Bone mineral density as measured about the Lumbar spine is: ----- L1-L4(G/cm2): 1.412 T Score Values are as follows: ----- L1: 0.6 ----- L2: 0.4 ----- L3: 2.5 ----- L4: 3.6 ----- L1-L4: 1.9 Z Score Values are as follows: ----- L1: 1.0 ----- L2: 0.8 ----- L3: 2.9 ----- L4: 4.0 ----- L1-L4: 2.3 Bone mineral density has: Increased 3.6% since study of: 05-23-22 Bone mineral density about the R hip (g/cm2): 0.906 Bone mineral density about the L hip (g/cm2): 1.143 T Score values are as follows: -----R Neck: -1.0 -----L Neck: 2.2 -----R Total: -0.8 -----L Total: 1.1 Z Score values are as follows: -----R Neck: -0.3 -----L Neck: 2.9 -----R Total: -0.5 -----L Total: 1.4 Bone mineral density has: Increased 3% since study of: 05-23-22 FRAX%s: The graph provided illustrates a 11.6% chance for a major osteoporotic fx and a 0.8% chance f or the hips probability for fx in 10 years time. IMPRESSION: Normal (Values between +1 and -1 indicate normal bone mass). Consider repeating this study in 5 year s or sooner if there is some new clinical indication. NOTE: T-SCORE=SD OF THE YOUNG ADULT MEAN.
== END | disposition home or self-care (01) ==
LOC: RADBDWWP 08:22
PROVIDERS: ATTEND Internal Medicine
DX: C54.1 Malignant neoplasm of endometrium (principal); I10 Essential (primary) hypertension; E55.9 Vitamin D deficiency, unspecified; E78.2 Mixed hyperlipidemia; E04.1 Nontoxic single thyroid nodule
CPT/HCPCS: 77080; 80053; 80061; 81001; 82043; 82306; 82570; 83036; 83735; 84443; 84550; 85025

== ENCOUNTER → 2023-08-30 | Outpatient (CLI) | payer MEDICARE ==
--- NOTE | 2023-08-30 17:35 | US ---
EXAMINATION TYPE: US thyroid st tissue head/neck DATE OF EXAM: 08/30/2023 COMPARISON: none available in PACs CLINICAL INDICATION: Female, 62 years old with history of E04.1 RIGHT THYROID NODULE; pt states years ago she had a thyroid bx, ?uncertain side/results GLAND SIZE: Right Lobe: 4.6 x 2.7 x 2.2 cm Overall Parenchyma: somewhat heterogenous Left Lobe: 4.5 x 1.4 x 0.9 cm Overall Parenchyma: heterogenous Isthmus Thickness: 0.3 cm NODULES RIGHT: # of nodules measured on right: 2 1. 3.3 X 1.8 x 2.5 cm, homogeneous solid, isoechoic nodule at the superior pole, which is wider marilee n tall, with smooth margins, without echogenic foci. TR 3 2. 0.6 X 0.3 x 0.5 cm, calcified shadowing solid nodule at the lower pole, which is wider than tall , with lobulated or irregular margins. LEFT: # of nodules measured on left: 1 1. 1.1 X 0.8 x 1.0 cm, solid nodule at the lower pole, which is wider than tall, with smooth margin s, without echogenic foci. ISTHMUS: # of nodules measured in the isthmus: 0 Bilateral neck scanned, no evidence of lymphadenopathy. IMPRESSION: Mildly suspicious nodule right lobe thyroid. Fine-needle aspiration recommended. 2017 ACR TI-RADS LEVEL: TR-RADS 3 - Mildly Suspicious: Follow if > 1.5 cm, FNA if > 2.5 cm *Highest TI-RADS level nodule reported
== END | disposition home or self-care (01) ==
LOC: RADUSWWP 09:58
PROVIDERS: ATTEND Internal Medicine
DX: E04.1 Nontoxic single thyroid nodule (principal)
CPT/HCPCS: 76536

== ENCOUNTER → 2024-02-04 | Outpatient (CLI) | payer MEDICARE | END | disposition home or self-care (01) | LOC: LABPRL 09:06 | PROVIDERS: ATTEND Registered Nurse | DX: I10 Essential (primary) hypertension (principal); E78.2 Mixed hyperlipidemia; E11.69 Type 2 diabetes mellitus with other specified complication | CPT/HCPCS: 80053; 80061; 81003; 82043; 82570; 83036; 83735; 84443; 84550; 85025 ==

== ENCOUNTER → 2024-04-27 | Outpatient (CLI) | payer MEDICARE ==
--- NOTE | 2024-04-28 09:23 | MM ---
Reason for Exam: Screening (asymptomatic). Last mammogram was performed 1 year(s) and 11 month(s) ago. Patient History: Menarche at age 8. Patient has no children. Left ovary removed at age 61. Right ovary removed at age 61. Hysterectomy at age 61. Previous chemotherapy at age 61. Hormonal Contraceptives, starting at age 18 for 8 years. Risk Values: Naomi 5 year model risk: 2.0%. NCI Lifetime model risk: 7.6%. Prior Study Comparison: 01/23/2008 Right Diagnostic Mammogram, [facility]. 07/26/2008 Bilateral Diagnostic Mammogram, [facility]. 05/23/2022 Bilateral MG 3D screening mammo w/cad, [facility]. Tissue Density: The breasts are almost entirely fatty. Findings: Analyzed By CAD. Right breast: There is no suspicious group of microcalcifications or new suspicious mass. Left breast: There is no suspicious group of microcalcifications or new suspicious mass. Overall Assessment: Negative, BI-RAD 1 Management: Screening Mammogram of both breasts in [address] [facility] will attempt to contact patient to return for supplemental views and ultrasound if indicated. Patient should continue monthly self-breast exams. A clinical breast exam by your physician is recommended on an annual basis. This exam should not preclude additional follow-up of suspicious palpable abnormalities. Note on Naomi scores and lifetime risk: 1. A Naomi score greater than 3% is considered moderate risk. If this is the case, consider specialist referral to assess eligibility for a risk reducing agent. 2. If overall lifetime risk for the development of breast cancer is 20% or higher, the patient may qualify for future screening with alternating mammogram and breast MRI. [facility], , 04/28/2024 9:20 AM. Electronically signed and approved by: Thomas Mancia DO
== END | disposition home or self-care (01) ==
LOC: RADMAMWWP 13:00
PROVIDERS: ATTEND Internal Medicine
CPT/HCPCS: 77063; 77067

== ENCOUNTER → 2024-06-12 | Day surgery (SDC) | payer MEDICARE ==
[2024-06-10 13:08] VITALS: BMI 38.0
[~2024-06-12] MED LIST changes: -ACETAMINOPHEN TAB 500 MG TAB PO PRN; -DEXAMETHASONE SOD PHOSPHATE 4 MG/ML 1 ML VIAL IV ONE; -HEPARIN SODIUM,PORCINE/PF 5,000 UNIT/0.5 ML SYRINGE SQ PRN; -HYDROmorphone 0.5 MG/0.5 ML SYRINGE IVP PRN; +LIDOCAINE 1% INJ 10MG/ML (20 ML MDV) ONE; -MIDAZOLAM 2 MG/2 ML VIAL IV PRN; -ONDANSETRON 4 MG/2 ML VIAL IVP ONE; +PROPOFOL 10 MG/ML 20 ML VIAL IV ONE
[2024-06-12 06:49] VITALS: TEMP 97.2
[2024-06-12 07:01] LABS: Glucose,Whole Blood 105 mg/dL (70-110)
[2024-06-12] MEDS: LACTATED RINGERS 1,000 ML IV ONE (07:02)
--- NOTE | 2024-06-12 07:28 | P.PCN ---
Date of Procedure: 06/12/24 Procedure(s) Performed: Brief history: Patient is a pleasant 63-year-old white female scheduled for an elective upper endoscopy as well as colonoscopy as a part of evaluation of longstanding history of GERD and screening for colon cancer. Her sister was diagnosed with colon cancer at age 70. Procedure performed: Esophagogastroduodenoscopy biopsy Colonoscopy with snare polypectomy Preoperative diagnosis: GERD Screening for colon cancer and family history of colon cancer Anesthesia: MAC Procedure: After informed consent was obtained from the patient was brought into the endoscopy unit and IV sedation was administered by anesthesia under continuous monitoring. Initially upper endoscopy was done. The Olympus GF 160 video endoscope was inserted inserted into the mouth and esophagus intubated without any difficulty and was gradually advanced into the stomach and duodenum and carefully examined. The bulb and second part of the duodenum appeared normal. The scope was then withdrawn into the stomach adequately insufflated with air and upon careful examination the antrum had mild gastritis and biopsies were done from this area. Mucosa of the body, cardia and fundus appeared normal. The scope was then withdrawn into the esophagus. The GE junction was located at 40 cm to the incisors. There was a 5 mm polyp at the GE junction that was biopsied. The GE junction appeared regular with no erythema erosions or ulcerations. Rest of the esophagus appeared normal. Patient tolerated the procedure well. At this time the patient continued to remain sedation. Initial digital rectal examination was normal. Olympus CF 160 video colonoscope was then inserted into the rectum and gradually advanced to the cecum without any difficulty. Careful examination was performed as the scope was gradually being withdrawn. The prep was excellent. The cecum, ascending colon, transverse colon were normal. The descending colon there was a 1 cm polyp removed by snare polypectomy. Scattered left-sided diverticulosis seen. Rest of the, descending colon, sigmoid colon and rectum appeared normal. Retroflexion was performed in the rectum and no lesions were noted. Patient tolerated the procedure well. Impression: 1. Upper endoscopy revealed mild antral gastritis and 5 mm GE junction polyp status post biopsy 2. Colonoscopy revealed 1 cm proximal sigmoid colon polyp status post snare polypectomy and scattered sigmoid diverticula Recommendations: Findings of this examination were discussed with the patient as well as her family. She was advised to follow with the biopsy results and have repeat colonoscopy in 5 years because of a family history of colon cancer
[2024-06-12 07:54] VITALS: BP 130/71; PULSE 90; RESP 16
== END ==
LOC: ORWHC2ENDO 05:52
PROVIDERS: ATTEND Internal Medicine Gastroenterology
DX: Z12.11 Encounter for screening for malignant neoplasm of colon (principal); D12.5 Benign neoplasm of sigmoid colon; K21.9 Gastro-esophageal reflux disease without esophagitis; K29.50 Unspecified chronic gastritis without bleeding; K31.A0 Gastric intestinal metaplasia, unspecified; K57.30 Diverticulosis of large intestine without perforation or abscess without bleeding; I10 Essential (primary) hypertension; E78.5 Hyperlipidemia, unspecified; E11.9 Type 2 diabetes mellitus without complications; M19.90 Unspecified osteoarthritis, unspecified site; Z85.41 Personal history of malignant neoplasm of cervix uteri; Z86.711 Personal history of pulmonary embolism; Z80.0 Family history of malignant neoplasm of digestive organs; Z79.82 Long term (current) use of aspirin; Z79.01 Long term (current) use of anticoagulants; Z79.899 Other long term (current) drug therapy; Z79.1 Long term (current) use of non-steroidal anti-inflammatories (NSAID)
CPT/HCPCS: 88305; 45385; 43239; J2003; J2704

== ENCOUNTER → 2025-01-19 | Outpatient (CLI) | payer MEDICARE ==
--- NOTE | 2025-01-19 11:48 | US ---
EXAMINATION TYPE: US thyroid st tissue head/neck DATE OF EXAM: 01/19/2025 COMPARISON: 08/30/2023 CLINICAL INDICATION: Female, 64 years old with history of E04.1 RIGHT THYROID NODULE; f/u TECHNIQUE: Grayscale and color Doppler imaging of the thyroid gland. FINDINGS: GLAND SIZE: Right Lobe: 5.0 x 2.0 x 1.9 cm Overall Parenchyma: heterogeneous Left Lobe: 4.6 x 0.8 x 1.0 cm Overall Parenchyma: homogeneous Isthmus Thickness: 0.3 cm NODULES RIGHT: # of nodules measured on right: 1 nodule and additional small calc 1. 3.4 x 2.8 x 1.6cm, mid, solid or almost completely solid, isoechoic nodule, which is wider than t all, with smooth margins, without echogenic foci. TR 3 Prior size: 3.3 x 2.5 x 1.8 cm LEFT: # of nodules measured on left: 0 ISTHMUS: # of nodules measured in the isthmus: 0 Bilateral neck scanned, no evidence of lymphadenopathy. IMPRESSION: Mildly suspicious nodule right lobe thyroid. Fine-needle aspiration recommended if not previously per formed. Highest TI-RADS level nodule reported: 2017 ACR TI-RADS LEVEL: TI-RADS 3 - Mildly Suspicious: Follow if > 1.5 cm, FNA if > 2.5 cm TI-RADS assessment score and recommendation for follow-up based on appropriate scoring and treatment protocols. TR1 Benign No FNA TR2 Not suspicious No FNA TR3: If nodule size is ? 2.5 cm, FNA is recommended. If nodule size is ? 1.5 cm, follow-up imaging at 1, 3, and 5 years is recommended. TR4: If nodule size is ? 1.5 cm, FNA is recommended. If nodule size is ? 1.0 cm, follow-up imaging at 1, 2, 3, and 5 years is recommended. TR5: If nodule size is ? 1.0 cm, FNA is recommended. If nodule size is ? 0.5 cm, annual follow-up for up to 5 years is recommended. TR 1 thyroid nodules have a 0.3 % risk of malignancy. TR 2 thyroid nodules have a 1.5 % risk of malignancy. TR 3 thyroid nodules have a 4.8 % risk of malignancy. TR 4 thyroid nodules have a 9.1 % risk of malignancy. TR 5 thyroid nodules have a 35 % risk of malignancy. [email or web address] [facility], Workstation: [email or web address], 01/19/2025 11:46 AM
== END | disposition home or self-care (01) ==
LOC: RADUSWWP 11:06
PROVIDERS: ATTEND Internal Medicine
DX: E04.1 Nontoxic single thyroid nodule (principal)
CPT/HCPCS: 76536